=== PATIENT | female | born 1940 | race Caucasian/White ===

== ENCOUNTER → 2018-05-11 10:38 | Outpatient (CLI) | payer MEDICARE, SELFPAY ==
[2018-05-11 11:48] LABS: Add Manual Diff / Slide Review NO; Basophils Percent Auto 0.9 % (0-2); Eosinophils Percent Auto 4.9 % (2-4); Hematocrit 39.6 % (36-46); Hemoglobin 13.6 g/dL (12.0-16.0); Lymphocytes Percent Auto 27.4 % (25-40); Mean Corpuscular HGB Conc 34.3 % (30-36); Mean Corpuscular Hemoglobin 32.5 PG (26-34); Mean Corpuscular Volume 94.6 fL (80-100); Monocytes Percent Auto 8.9 % (3-14); Neutrophils Absolute Auto 2600 /uL (3000-5900); Neutrophils Percent Auto 57.9 % (50-75); Platelet Count 248 X10^3/uL (150-400); Red Blood Cell Count 4.19 X10^6/uL (4.0-5.2); Red Cell Distribution Width 14.1 % (11.6-14.8); White Blood Cell Count 4.5 X10^3/uL (4.5-11.0)
[2018-05-11 12:08] LABS: Erythrocyte Sedimentation Rate 6 MM/HR (0-20)
[2018-05-11 15:10] LABS: Alanine Aminotransferase 22 IU/L (9-52); Albumin 3.9 g/dL (3.5-5.0); Albumin Globulin Ratio 1.3 (1.0-2.8); Alkaline Phosphatase 46 U/L (38-126); Aspartate Aminotransferase 17 IU/L (14-36); BUN Creatinine Ratio 18.8 (6-22); Bilirubin Total 0.6 mg/dL (0.2-1.3); Blood Urea Nitrogen 15 mg/dL (7-17); Calcium 9.3 mg/dL (8.4-10.2); Carbon Dioxide 28 mmol/L (22-32); Chloride 101 mmol/L (98-107); Estimated Glomerular Filt Rate > 60.0 mL/min (>60); Glucose 130 mg/dL (80-110); HEMOLYSIS < 15 (0-50); Potassium 4.1 mmol/L (3.4-5.1); Sodium 137 mmol/L (137-145); Total Protein 6.9 g/dL (6.3-8.2)
[2018-05-11 15:11] LABS: C-Reactive Protein Quant < 0.5 mg/dL (<1.0)
[2018-05-11 15:39] LABS: Thyroid Stimulating Hormone 2.03 uIU/mL (0.47-4.68)
== END ==
PROVIDERS: PCP Nurse Practitioner Family; Visit Provider Nurse Practitioner Family
DX: R10.9 Unspecified abdominal pain (principal); R19.7 Diarrhea, unspecified; K52.832 Lymphocytic colitis
CPT/HCPCS: 36415; 80053; 84443; 85025; 85651; 86140

== ENCOUNTER → 2018-05-13 10:21 | Outpatient (CLI) | payer MEDICARE, SELFPAY ==
[2018-05-17 15:34] LABS: Thyroid Peroxidase Antibodies 85 IU/mL (< 9)
[2018-05-18 10:39] LABS: (tTG) Ab, IgA < 1 U/mL
== END ==
PROVIDERS: PCP Nurse Practitioner Family; Visit Provider Nurse Practitioner Family
DX: R19.7 Diarrhea, unspecified (principal); R10.9 Unspecified abdominal pain; K52.832 Lymphocytic colitis
CPT/HCPCS: 83516; 86255; 86376

== ENCOUNTER → 2018-11-25 10:49 | Outpatient (CLI) | payer MEDICARE, SELFPAY ==
--- NOTE | 2018-11-25 10:51 | DI.RAD.S_ITS ---
PROCEDURE: XR LUMBAR SPINE MIN 4V INDICATIONS: hip pain TECHNIQUE: 5 views of the lumbar spine acquired. COMPARISON: [facility], , L-SPINE 2-3 VIEWS, 02/01/2008, 17:18. FINDINGS: Bones: 5 nonrib-bearing vertebrae are present. Trace multilevel retrolisthesis. Multilevel disc degeneration, moderate at the L3-L4 level. Moderate lower lumbar spine facet joint arthropathy. No pars defects. No vertebral body compression fractures. No suspicious bony lesions. Soft tissues: Overlying bowel gas pattern is normal. No suspicious soft tissue calcifications. Vascular calcifications indicate atherosclerosis. IMPRESSION: Multilevel degenerative change. Dictated by: Hung See [facility] Interpreted: Dean Santos MD on 11/25/2018 at 11:23 Approved by: Dean Santos M.D. on 11/25/2018 at 11:56
--- NOTE | 2018-11-25 10:51 | DI.RAD.S_ITS ---
PROCEDURE: XR HIP W PEL IF DONE RT 2V INDICATIONS: hip pain TECHNIQUE: AP pelvis with lateral view(s) of the right hip(s). COMPARISON: [facility], CR, XR LUMBAR SPINE MIN 4V, 11/25/2018, 10:52. FINDINGS: Bones: No fractures or dislocations. Pelvic ring appears intact. No suspicious bony lesions. Mild joint narrowing with periarticular osteophyte formation of the joints bilaterally. Degenerative disc and facet disease involves the inferior lumbar spine. Soft tissues: The visualized bowel gas pattern is normal. No suspicious soft tissue calcifications. IMPRESSION: Mild symmetric hip joint degeneration. Dictated by: Hung See [facility] Interpreted: Dean Santos MD on 11/25/2018 at 11:25 Approved by: Dean Santos M.D. on 11/25/2018 at 11:56
== END ==
PROVIDERS: PCP Internal Medicine; Visit Provider Physical Medicine & Rehabilitation
DX: M25.551 Pain in right hip (principal); M16.11 Unilateral primary osteoarthritis, right hip; M47.27 Other spondylosis with radiculopathy, lumbosacral region; M47.26 Other spondylosis with radiculopathy, lumbar region
CPT/HCPCS: 72110; 73502; 99214

== ENCOUNTER → 2018-12-06 08:19 | Outpatient (CLI) | payer MEDICARE, SELFPAY ==
--- NOTE | 2018-12-06 08:20 | DI.MRI.S_ITS ---
PROCEDURE: MR LUMBAR SPINE WO CON INDICATIONS: Lumbosacral spondylosis with history of fracture TECHNIQUE: Noncontrast sagittal T1 spin echo and T2 fast echo, sagittal STIR, axial T1 and T2 fast spin echo through the lumbar spine. In cases with scoliosis, additional coronal T2 fast spin echo may be performed. COMPARISON: [facility], CR, L-SPINE 2-3 VIEWS, 02/01/2008, 17:18. [facility], MR, T-SPINE WITHOUT CONTRAST, 09/25/2011, 7:08. [facility], CR, XR LUMBAR SPINE MIN 4V, 11/25/2018, 10:52. FINDINGS: Image quality: Motion artifacts are noted on axial images. Alignment and Curvature: There is grade 1 retrolisthesis is of L3 on L4 and grade 1 anterolisthesis of L4 on L5. Bone Marrow: Marrow is of normal overall signal. Mild chronic vertebral body compression fractures of L3 and L4. Spinal Cord: Conus medullaris terminates at the L1 level. Visualized cord demonstrates normal signal and size. Paraspinous Soft Tissues: No paravertebral masses. L1-L2: Preserved disc height. Mild disc desiccation. There is diffuse disc bulge. The central canal is mildly narrowed. Mild bilateral foraminal stenosis. L2-L3: Mild loss of disc height and disc desiccation. There is diffuse disc bulge. Mild bilateral facet arthropathy. The central canal is mildly narrowed. Mild bilateral foraminal stenosis. L3-L4: Mild loss of disc height and disc desiccation. There is diffuse disc bulge and posterior disc ossified complex. A small posterior central annular fissure is present. Mild bilateral facet arthropathy. The central canal is xvzs-rk-sxhdekxsbo narrowed. Cezopqoa-ns-ayvows bilateral foraminal stenosis. L4-L5: Preserved disc height. Mild disc desiccation. There is diffuse disc bulge and posterior central annular fissure. Mild bilateral facet arthropathy and hypertrophy of ligamentum flavum. The central canal is mildly narrowed. Severe bilateral foraminal stenosis. L5-S1: Preserved disc height. Mild disc desiccation. There is diffuse posterior disc bulge. Mild bilateral facet arthropathy. The central canal is patent. Bzhq-py-hxbcjyiu bilateral foraminal stenosis. IMPRESSION: 1. Multilevel degenerative disc disease and facet arthropathy as described. 2. Udrn-qo-nsstygaj central canal stenosis at L3-L4, and mild central canal stenosis at several other levels. 3. Multilevel foraminal stenosis as described, severe at L4-L5 bilaterally, moderate to severe at L3-L4 bilaterally. 4. Chronic mild compression fractures of L3 and L4. Dictated by: Yo Dumont M.D. on 12/06/2018 at 10:44 Approved by: Yo Dumont M.D. on 12/06/2018 at 10:53
== END ==
PROVIDERS: PCP Internal Medicine; Visit Provider Physical Medicine & Rehabilitation
DX: M47.27 Other spondylosis with radiculopathy, lumbosacral region (principal); M47.26 Other spondylosis with radiculopathy, lumbar region; M51.16 Intervertebral disc disorders with radiculopathy, lumbar region; M51.17 Intervertebral disc disorders with radiculopathy, lumbosacral region; M48.061 Spinal stenosis, lumbar region without neurogenic claudication; M48.07 Spinal stenosis, lumbosacral region; S32.038A Other fracture of third lumbar vertebra, initial encounter for closed fracture; S32.048A Other fracture of fourth lumbar vertebra, initial encounter for closed fracture
CPT/HCPCS: 72148

== ENCOUNTER → 2020-01-11 14:30 | Outpatient (ROUT) | payer MEDICARE, SELFPAY ==
[2020-01-13 13:39] LABS: COVID19 Sendout Not Detected (Not Detected)
== END ==
PROVIDERS: PCP Internal Medicine; Visit Provider Internal Medicine
DX: R05 Cough (principal)
CPT/HCPCS: 87635

== ENCOUNTER 2020-01-13 09:18 | Inpatient (IN) | payer MEDICARE, SELFPAY ==
[2020-01-13] VITALS (14 sets, daily range): BP systolic 119–165; BP diastolic 57–86; PULSE 66–88; RESP 16–20; TEMP 36.7–38.2; O2SAT 95–98; BMI 30.2
--- NOTE | 2020-01-13 09:41 | DI.RAD.S_ITS ---
PROCEDURE: XR CHEST 1V INDICATIONS: suspected sepsis TECHNIQUE: One view of the chest was acquired. COMPARISON: [facility], CT, THORAX WITH CONTRAST, 12/15/2013, 11:55. [facility], , CHEST 2 VIEW, 05/27/2016, 13:37. [facility], CR, CHEST 2 VIEW, 09/24/2011, 11:19. [facility], , CHEST 2 VIEW, 01/16/2011, 15:14. FINDINGS: Surgical changes and devices: None. Lungs and pleura: Lungs are clear. No pleural effusions or pneumothorax. Mediastinum: The cardiac contours are within normal limits. The aorta demonstrates calcification and tortuosity. Bones and chest wall: No suspicious bony lesions. Overlying soft tissues appear unremarkable. IMPRESSION: No focal infiltrates are seen on this portable chest study. Dictated by: Haris Valentin M.D. on 01/13/2020 at 9:35 Approved by: Haris Valentin M.D. on 01/13/2020 at 9:36
[2020-01-13] MEDS: KETOROLAC 60 MG/2 ML VIAL 15 MG IV (09:56)
[2020-01-13] MEDS: ONDANSETRON 4 MG/2 ML INJ IV (09:57)
[2020-01-13] MEDS: SODIUM CHLORIDE 0.9% 1,000 ML 1000 ML IV ×2 (09:57→11:23)
[2020-01-13 10:28] LABS: Add Manual Diff / Slide Review NO; Basophils Absolute Auto 0 /uL (0-100); Eosinophils Absolute Auto 0 /uL (0-450); Eosinophils Percent Auto 0.1 % (2-4); Hematocrit 37.6 % (36-46); Hemoglobin 12.8 g/dL (12.0-16.0); Lymphocytes Absolute Auto 600 /uL (1100-4500); Lymphocytes Percent Auto 3.5 % (25-40); Mean Corpuscular Hemoglobin 32.1 PG (26-34); Mean Corpuscular Volume 94.3 fL (80-100); Monocytes Absolute Auto 1700 /uL (0-900); Monocytes Percent Auto 9.7 % (3-14); Neutrophils Absolute Auto 15100 /uL (1500-7000); Neutrophils Percent Auto 86.7 % (50-75); Platelet Count 177 X10^3/uL (150-400); Red Blood Cell Count 3.98 X10^6/uL (4.0-5.2); Red Cell Distribution Width 13.4 % (11.6-14.8); White Blood Cell Count 17.5 X10^3/uL (4.5-11.0)
[2020-01-13 10:32] LABS: INR 1.3 (0.9-1.3); Prothrombin Time 15.4 SECONDS (10.1-12.7)
[2020-01-13 10:35] LABS: PTT Partial Thromboplastin Tim 28 SECONDS (26.4-36.2)
[2020-01-13 10:38] LABS: Alanine Aminotransferase 24 IU/L (<35); Albumin 3.9 g/dL (3.5-5.0); Albumin Globulin Ratio 1.1 (1.0-2.8); Alkaline Phosphatase 58 U/L (38-126); Aspartate Aminotransferase 26 IU/L (14-36); BUN Creatinine Ratio 14.5 (6-22); Bilirubin Total 0.7 mg/dL (0.2-1.3); Blood Urea Nitrogen 10 mg/dL (7-17); Carbon Dioxide 24 mmol/L (22-32); Chloride 98 mmol/L (98-107); Creatine Kinase 36 U/L (30-135); Estimated Glomerular Filt Rate > 60.0 mL/min (>60); Globulin 3.7 g/dL (1.7-4.1); Glucose 131 mg/dL (80-110); HEMOLYSIS < 15 (0-50); Lipase 23 U/L (23-300); Potassium 3.8 mmol/L (3.4-5.1); Sodium 130 mmol/L (137-145); Total Protein 7.6 g/dL (6.3-8.2)
[2020-01-13 10:47] LABS: Lactate (Lactic Acid) 0.8 mmol/L (0.7-2.1)
[2020-01-13 10:54] LABS: Procalcitonin 0.25 ng/mL (<0.5)
[2020-01-13 11:00] LABS: Influenza A - CEPHEID Flu A NEGATIVE (NEGATIVE); Influenza B - CEPHEID Flu B NEGATIVE (NEGATIVE)
[2020-01-13 11:08] LABS: C-Reactive Protein Quant 22.4 mg/dL (<1.0)
--- NOTE | 2020-01-13 11:10 | DI.CT.S_ITS ---
PROCEDURE: CT CHEST WO CON INDICATIONS: Short of breath, cough, increased wbc count, possible covid TECHNIQUE: Noncontrast 5 mm thick sections acquired from the pulmonary apices to the posterior costophrenic angles. 1 mm lung window, 5 mm thick coronal and sagittal and 7 mm axial MIP reformats were then acquired. For radiation dose reduction, the following was used: automated exposure control, adjustment of mA and/or kV according to patient size. COMPARISON: [facility], CT, THORAX WITH CONTRAST, 12/15/2013, 11:55. [facility], CR, XR CHEST 1V, 01/13/2020, 10:17. FINDINGS: Image quality: Excellent. Lungs and pleura: Mild dependent atelectasis is seen, right worse than left. No focal infiltrates are seen. No pleural effusions or pneumothorax. Central and peripheral airways are patent and normal in caliber. Mediastinum: Heart size is normal. Coronary artery calcifications are seen. No pericardial effusion. No mediastinal adenopathy by size criteria. Thoracic aorta and central pulmonary arteries are normal in size. Esophagus is normal in caliber. There is a moderate hiatal hernia. Bones and chest wall: No suspicious bony lesions. A T7 compression deformity is seen, with 70% loss of height centrally, which is not significantly changed compared to 2013. Age-appropriate bony degenerative changes are seen. No acute vertebral body compression fractures. No axillary or supraclavicular adenopathy by size criteria. Thyroid gland is small in size. Abdomen: Visualized upper abdominal solid organs and bowel loops appear normal in the absence of contrast. IMPRESSION: Clear lungs, without focal infiltrates. No imaging explanation is found for this patient's presenting symptoms. Incidental note is made of: Coronary artery calcification Stable T7 compression deformity Moderate hiatal hernia Dictated by: Haris Valentin M.D. on 01/13/2020 at 11:04 Approved by: Haris Valentin M.D. on 01/13/2020 at 11:07
[2020-01-13 11:12] LABS: Ferritin 264 ng/mL (11-264)
[2020-01-13] MEDS: CEFTRIAXONE 1 GM/50 ML FROZ.PIGGY IV (11:23)
[2020-01-13 11:31] LABS: NT-proBNP (BNP-Adult 18+) 489 pg/mL (<450); Troponin I < 0.012 ng/mL (0.01-0.034)
[2020-01-13] MEDS: SODIUM CHLORIDE 0.9% 1,000 ML 150 ML IV (12:15)
[2020-01-13] MEDS: AZITHROMYCIN 500 MG in DEXTROSE 5% IN WATER 250 ML IV (12:15)
--- NOTE | 2020-01-13 14:00 | ED.FEVER ---
HPI - Fever General Chief Complaint: Fever Stated Complaint: fever, 101.3, covid results not back,chest pain Source: patient Mode of arrival: Ambulatory Limitations: no limitations History of Present Illness HPI Narrative: HPI: Patient is a 79-year-old female who presents to the emergency department with chest pain associated with a fever to 101.3. Patient states that on she developed a dull achy discomfort in her chest and back. This discomfort did not radiate to her neck jaw but did to her right shoulder. There was no arm pain with numbness or tingling. She also developed a very dry cough associated with shortness of breath. She had a argueta virus swab for co visit 19 on . She has had a mild headache. She was primarily complaining of severe body aches and back aches without any ambition or energy. She was extremely exhausted. She felt weak and tired. She stated that her discomfort was 7/10. She denied a history of hepatitis, TB, HIV, known exposure to anybody with cold bit or travel outside the [place]. This year she received her pneumonia vaccine as well as her influenza vaccine. She denied any history of asthma COPD myocardial infarction congestive heart failure hypertension or diabetes mellitus. She states that she has never smoked cigarettes she rarely drinks alcohol and has not used marijuana. She has had a fever since Wednesday associated with chills and sweats especially at night. She has had a mild headache without numbness tingling paresthesias anesthesia is or paresis. She has had some mild sinus congestion with a mild sore throat and minimal nasal drainage. She has had no hemoptysis. Her cough is dry and nonproductive. She has had some intermittent palpitations and dizziness without fainting. She denies any abdominal pain but has had nausea and vomiting without diarrhea. She has felt anorexic and because she has not eaten she has ingested an occasional insure. She denies any urinary symptoms. Related Data Home Medications Medication Instructions Recorded Confirmed levothyroxine [Synthroid] 0.075 mg PO QAM #0 12/01/17 01/13/20 zolpidem 5 mg PO BEDTIME 01/13/20 01/13/20 Allergies Allergy/AdvReac Type Severity Reaction Status Date / Time No Known Drug Allergies Allergy Verified 11/25/18 09:53 Review of Systems Review of Systems Narrative: Review of systems were all negative except for those mentioned in the history of present illness. Patient History Social History household members: spouse and children Smoking Status: Never smoker Smoking Status: Never smoker alcohol intake frequency: 0-2 drinks per day Substance Use Type: does not use Exam Narrative Exam Narrative: PHYSICAL EXAM: CONSTITUTIONAL: Awake, Alert, appears tired exhausted and wasted. She does not appear toxic. HEAD: AT/NC EENT: PERRL, FROM of eyes, no discharge, Tympanic membranes are intact without erythema or dullness or hemotympanum. No epistaxis or nasal drainage Oral mucosa is moist and pink, posterior pharynx is without erythema or exudate. NECK: Supple, no obvious JVD, Trachea is midline without stridor, no palpable LN or masses. SPINE: No gross deformity. The patient's upper thoracic spine between her shoulder blades is diffusely tender without any appreciable deformity. The rest of her is cervical thoracic and lumbar spine are without tenderness. There is no significant 10th ribs who over the sacrum.. No CVA tenderness. THORAX: No deformity, retractions, chest wall tenderness, subcutaneous air or crepitice. LUNGS: The patient is a few crackles in both bases of her lungs. Her heart rate on the monitor was 86 an her oxygen saturation was 90% on room air. HEART: Normal heart tones, regular rhythm and rate without murmur. ABDOMEN: Soft, non-tender, without guarding, rebound, rigidity or palpable mass EXTREMITIES: No edema, cyanosis, deformity or tenderness. SKIN: No rash, bruising, petechiae or purpura. NEURO: Awake, alert, oriented, cranial nerves II-XII are symmetrical. She exhibits generalized fatigue but moves all 4 extremities. Initial Vital Signs Initial Vital Signs: Vital Signs Temperature 98.1 F 01/13/20 09:20 Pulse Rate 84 01/13/20 09:20 Respiratory Rate 20 01/13/20 09:20 Blood Pressure 142/67 H 01/13/20 09:20 Pulse Oximetry 98 01/13/20 09:20 Course Course Course Narrative: 1400 I discussed the patient with the hospitalist Dr. Mccullough who has agreed to admit the patient observation status. The patient's white blood count was 17.5 1000 hemoglobin 12.8 neutrophils 86% lymphocytes 3.5 percents CRP 22.4 BNP 489 procalcitonin 0.25 influenza a and B were negative ferritin 260 for lactate 0.8. Her chest x-ray revealed clear lungs without any evidence of an infiltrate. The patient with the elevated white blood count on admission was thought to be septic with an occult pneumonia waiting for the chest x-ray to be performed. The patient consequently was treated with Rocephin IV and Zithromax. The patient was admitted to the hospital to be evaluated for possible sepsis. She was admitted observation status to Dr. Mccullough. Orders Ordered: ED Orders 01/13/20 10:10 BNP [NT-proBNP (BNP-Adult 18+)] Stat C-Reactive Protein Quant Stat Complete Blood Count AUTO DIFF Stat Comprehensive Metabolic Panel Stat Ferritin Stat Flu test [Influenza A & B (PCR)] Stat Lactate (Lactic Acid) Stat Lipase Stat Partial Thromboplastin Time Stat Procalcitonin Stat Prothrombin Time INR Stat Troponin & CK Cardiac Panel Stat 01/13/20 10:16 Blood Culture Stat 01/13/20 11:10 CT chest wo con Stat 01/13/20 14:00 Urine Culture Stat Urine Microscopic Stat Acetaminophen (Tylenol) 650 mg PO Q6HR PRN PRN Reason: Fever/Mild Pain (1-3) Last Admin: 01/13/20 17:31 Dose: 650 mg Documented by: MILENA Al Hydrox/Mg Hydrox/Simethicone (Maalox Plus) 30 ml PO Q6HR PRN PRN Reason: Dyspepsia Enoxaparin Sodium (Lovenox) 40 mg SUBCUT DAILY [facility] Ceftriaxone Sodium/Dextrose (Rocephin) 1 gm in 50 mls @ 100 mls/hr IV Q24H LUISITO Sodium Chloride (Normal Saline 0.9%) 1,000 mls @ 100 mls/hr IV CONT LUISITO Last Admin: 01/13/20 17:31 Dose: 100 mls/hr Documented by: MILENA Ondansetron HCl (Zofran) 4 mg IV Q8HR PRN PRN Reason: Nausea And Vomiting Discontinued Medications Sodium Chloride (Normal Saline 0.9%) 1,000 mls @ 1,000 mls/hr IV BOLUS ONE Stop: 01/13/20 10:39 Last Infusion: 01/13/20 11:09 Dose: 0 mls/hr Documented by: Admin: 01/13/20 09:57 Dose: 1,000 mls/hr Documented by: DURGA Sodium Chloride (Normal Saline 0.9%) 1,000 mls @ 1,000 mls/hr IV BOLUS ONE Stop: 01/13/20 12:09 Last Infusion: 01/13/20 14:13 Dose: 0 mls/hr Documented by: Admin: 01/13/20 11:23 Dose: 1,000 mls/hr Documented by: DURGA Ceftriaxone Sodium/Dextrose (Rocephin) 1 gm in 50 mls @ 100 mls/hr IV NOW ONE Stop: 01/13/20 11:39 Last Infusion: 01/13/20 12:15 Dose: 0 mls/hr Documented by: Admin: 01/13/20 11:23 Dose: 100 mls/hr Documented by: DURGA Azithromycin 500 mg/ Dextrose 250 mls @ 250 mls/hr IV NOW ONE Stop: 01/13/20 11:11 Last Infusion: 01/13/20 14:12 Dose: 0 mls/hr Documented by: Admin: 01/13/20 12:15 Dose: 250 mls/hr Documented by: DURGA Sodium Chloride (Normal Saline 0.9%) 1,000 mls @ 150 mls/hr IV BOLUS ONE Stop: 01/13/20 17:58 Last Infusion: 01/13/20 14:42 Dose: 0 mls/hr Documented by: Admin: 01/13/20 12:15 Dose: 150 mls/hr Documented by: DURGA Ketorolac Tromethamine (Toradol) 15 mg IV NOW ONE Stop: 01/13/20 09:50 Last Admin: 01/13/20 09:56 Dose: 15 mg Documented by: DURGA Ondansetron HCl (Zofran) 4 mg IV NOW ONE Stop: 01/13/20 09:41 Last Admin: 01/13/20 09:57 Dose: 4 mg Documented by: DURGA Vital Signs Vital signs: Vital Signs - 8 hr 01/13/20 12:00 01/13/20 13:30 01/13/20 14:35 Temperature 98.1 F Pulse Rate 72 75 72 Respiratory Rate 18 Blood Pressure Blood Pressure [Left Arm] 165/67 H 143/69 H 143/69 H Pulse Oximetry 97 98 97 01/13/20 14:50 Temperature 98.5 F Pulse Rate 86 Respiratory Rate 20 Blood Pressure 146/86 H Blood Pressure [Left Arm] Pulse Oximetry 98 MDM - Fever Lab Data Result diagrams: 01/13/20 17:55 01/13/20 10:10 Labs: Lab Results 01/13/20 01/13/20 01/13/20 Range/Units 10:10 10:10 10:10 WBC 17.5 H (4.5-11.0) X10^3/uL RBC 3.98 L (4.0-5.2) X10^6/uL Hgb 12.8 (12.0-16.0) g/dL Hct 37.6 (36-46) % MCV 94.3 (80-100) fL MCH 32.1 (26-34) PG MCHC 34.0 (30-36) % RDW 13.4 (11.6-14.8) % Plt Count 177 (150-400) X10^3/uL Neut % (Auto) 86.7 H (50-75) % Lymph % (Auto) 3.5 L (25-40) % Nuckolls % (Auto) 9.7 (3-14) % Eos % (Auto) 0.1 L (2-4) % Baso % (Auto) 0.0 (0-2) % Neut # (Auto) 10059 H (3867-4801) /uL Lymph # (Auto) 600 L (3403-9121) /uL Nuckolls # (Auto) 1700 H (0-900) /uL Eos # (Auto) 0 (0-450) /uL Baso # (Auto) 0 (0-100) /uL PT 15.4 H (10.1-12.7) SECONDS INR 1.3 (0.9-1.3) APTT 28 (26.4-36.2) SECONDS Sodium 130 L (137-145) mmol/L Potassium 3.8 (3.4-5.1) mmol/L Chloride 98 (98-107) mmol/L Carbon Dioxide 24 (22-32) mmol/L BUN 10 (7-17) mg/dL Creatinine 0.69 (0.52-1.04) mg/dL Estimated GFR > 60.0 (>60) mL/min BUN/Creatinine Ratio 14.5 (6-22) Glucose 131 H (80-110) mg/dL Lactate (0.7-2.1) mmol/L Calcium 9.0 (8.4-10.2) mg/dL Ferritin (11-264) ng/mL Total Bilirubin 0.7 (0.2-1.3) mg/dL AST 26 (14-36) IU/L ALT 24 (<35) IU/L Alkaline Phosphatase 58 (38-126) U/L Total Creatine Kinase 36 (30-135) U/L CK-MB (CK-2) TNP CK-MB (CK-2) Rel Index TNP Troponin I < 0.012 (0.01-0.034) ng/mL C-Reactive Protein 22.4 H (<1.0) mg/dL NT-Pro-B Natriuret Pep 489 H (<450) pg/mL Total Protein 7.6 (6.3-8.2) g/dL Albumin 3.9 (3.5-5.0) g/dL Globulin 3.7 (1.7-4.1) g/dL Albumin/Globulin Ratio 1.1 (1.0-2.8) Lipase 23 (23-300) U/L Procalcitonin (<0.5) ng/mL Urine RBC (0-5/HPF) Urine WBC (0-5/HPF) Urine Bacteria (None) Ur Culture Indicated? Chlamy pneumoniae PCR (Not Detect) Adenovirus (PCR) (Not Detect) B.parapertussis DNA PCR (Not Detect) Coronavirus OC43 (PCR) (Not Detect) Coronavirus HKU1 (PCR) (Not Detect) Coronavirus 229E (PCR) (Not Detect) COVID-19 PCR Coronavirus NL63 (PCR) (Not Detect) Human Metapneumovir PCR (Not Detect) Influenza A (RT-PCR) (NEGATIVE) Influenza Type A (PCR) (Not Detect) Influenza B (RT-PCR) (NEGATIVE) Influenza Type B (PCR) (Not Detect) M. pneumoniae (PCR) (Not Detect) Parainfluenza 1 (PCR) (Not Detect) Parainfluenza 2 (PCR) (Not Detect) Parainfluenza 3 (PCR) (Not Detect) Parainfluenza 4 (PCR) (Not Detect) RSV (PCR) (Not Detect) Entero/Rhino (PCR) (Not Detect) 01/13/20 01/13/20 01/13/20 Range/Units 10:10 10:10 10:10 WBC (4.5-11.0) X10^3/uL RBC (4.0-5.2) X10^6/uL Hgb (12.0-16.0) g/dL Hct (36-46) % MCV (80-100) fL MCH (26-34) PG MCHC (30-36) % RDW (11.6-14.8) % Plt Count (150-400) X10^3/uL Neut % (Auto) (50-75) % Lymph % (Auto) (25-40) % Nuckolls % (Auto) (3-14) % Eos % (Auto) (2-4) % Baso % (Auto) (0-2) % Neut # (Auto) (1257-4724) /uL Lymph # (Auto) (9882-7891) /uL Nuckolls # (Auto) (0-900) /uL Eos # (Auto) (0-450) /uL Baso # (Auto) (0-100) /uL PT (10.1-12.7) SECONDS INR (0.9-1.3) APTT (26.4-36.2) SECONDS Sodium (137-145) mmol/L Potassium (3.4-5.1) mmol/L Chloride (98-107) mmol/L Carbon Dioxide (22-32) mmol/L BUN (7-17) mg/dL Creatinine (0.52-1.04) mg/dL Estimated GFR (>60) mL/min BUN/Creatinine Ratio (6-22) Glucose (80-110) mg/dL Lactate 0.8 (0.7-2.1) mmol/L Calcium (8.4-10.2) mg/dL Ferritin (11-264) ng/mL Total Bilirubin (0.2-1.3) mg/dL AST (14-36) IU/L ALT (<35) IU/L Alkaline Phosphatase (38-126) U/L Total Creatine Kinase (30-135) U/L CK-MB (CK-2) CK-MB (CK-2) Rel Index Troponin I (0.01-0.034) ng/mL C-Reactive Protein (<1.0) mg/dL NT-Pro-B Natriuret Pep (<450) pg/mL Total Protein (6.3-8.2) g/dL Albumin (3.5-5.0) g/dL Globulin (1.7-4.1) g/dL Albumin/Globulin Ratio (1.0-2.8) Lipase (23-300) U/L Procalcitonin 0.25 (<0.5) ng/mL Urine RBC (0-5/HPF) Urine WBC (0-5/HPF) Urine Bacteria (None) Ur Culture Indicated? Chlamy pneumoniae PCR (Not Detect) Adenovirus (PCR) (Not Detect) B.parapertussis DNA PCR (Not Detect) Coronavirus OC43 (PCR) (Not Detect) Coronavirus HKU1 (PCR) (Not Detect) Coronavirus 229E (PCR) (Not Detect) COVID-19 PCR Coronavirus NL63 (PCR) (Not Detect) Human Metapneumovir PCR (Not Detect) Influenza A (RT-PCR) Flu a negative (NEGATIVE) Influenza Type A (PCR) (Not Detect) Influenza B (RT-PCR) Flu b negative (NEGATIVE) Influenza Type B (PCR) (Not Detect) M. pneumoniae (PCR) (Not Detect) Parainfluenza 1 (PCR) (Not Detect) Parainfluenza 2 (PCR) (Not Detect) Parainfluenza 3 (PCR) (Not Detect) Parainfluenza 4 (PCR) (Not Detect) RSV (PCR) (Not Detect) Entero/Rhino (PCR) (Not Detect) 01/13/20 01/13/20 01/13/20 Range/Units 10:10 10:10 10:10 WBC (4.5-11.0) X10^3/uL RBC (4.0-5.2) X10^6/uL Hgb (12.0-16.0) g/dL Hct (36-46) % MCV (80-100) fL MCH (26-34) PG MCHC (30-36) % RDW (11.6-14.8) % Plt Count (150-400) X10^3/uL Neut % (Auto) (50-75) % Lymph % (Auto) (25-40) % Nuckolls % (Auto) (3-14) % Eos % (Auto) (2-4) % Baso % (Auto) (0-2) % Neut # (Auto) (5559-2670) /uL Lymph # (Auto) (0399-7334) /uL Nuckolls # (Auto) (0-900) /uL Eos # (Auto) (0-450) /uL Baso # (Auto) (0-100) /uL PT (10.1-12.7) SECONDS INR (0.9-1.3) APTT (26.4-36.2) SECONDS Sodium (137-145) mmol/L Potassium (3.4-5.1) mmol/L Chloride (98-107) mmol/L Carbon Dioxide (22-32) mmol/L BUN (7-17) mg/dL Creatinine (0.52-1.04) mg/dL Estimated GFR (>60) mL/min BUN/Creatinine Ratio (6-22) Glucose (80-110) mg/dL Lactate (0.7-2.1) mmol/L Calcium (8.4-10.2) mg/dL Ferritin 264 (11-264) ng/mL Total Bilirubin (0.2-1.3) mg/dL AST (14-36) IU/L ALT (<35) IU/L Alkaline Phosphatase (38-126) U/L Total Creatine Kinase (30-135) U/L CK-MB (CK-2) CK-MB (CK-2) Rel Index Troponin I (0.01-0.034) ng/mL C-Reactive Protein (<1.0) mg/dL NT-Pro-B Natriuret Pep (<450) pg/mL Total Protein (6.3-8.2) g/dL Albumin (3.5-5.0) g/dL Globulin (1.7-4.1) g/dL Albumin/Globulin Ratio (1.0-2.8) Lipase (23-300) U/L Procalcitonin (<0.5) ng/mL Urine RBC (0-5/HPF) Urine WBC (0-5/HPF) Urine Bacteria (None) Ur Culture Indicated? Chlamy pneumoniae PCR Not detected (Not Detect) Adenovirus (PCR) Not detected (Not Detect) B.parapertussis DNA PCR Not detected (Not Detect) Coronavirus OC43 (PCR) Not detected (Not Detect) Coronavirus HKU1 (PCR) Not detected (Not Detect) Coronavirus 229E (PCR) Not detected (Not Detect) COVID-19 PCR Cancelled Coronavirus NL63 (PCR) Not detected (Not Detect) Human Metapneumovir PCR Not detected (Not Detect) Influenza A (RT-PCR) (NEGATIVE) Influenza Type A (PCR) Not detected (Not Detect) Influenza B (RT-PCR) (NEGATIVE) Influenza Type B (PCR) Not detected (Not Detect) M. pneumoniae (PCR) Not detected (Not Detect) Parainfluenza 1 (PCR) Not detected (Not Detect) Parainfluenza 2 (PCR) Not detected (Not Detect) Parainfluenza 3 (PCR) Not detected (Not Detect) Parainfluenza 4 (PCR) Not detected (Not Detect) RSV (PCR) Not detected (Not Detect) Entero/Rhino (PCR) Not detected (Not Detect) 01/13/20 Range/Units 14:00 WBC (4.5-11.0) X10^3/uL RBC (4.0-5.2) X10^6/uL Hgb (12.0-16.0) g/dL Hct (36-46) % MCV (80-100) fL MCH (26-34) PG MCHC (30-36) % RDW (11.6-14.8) % Plt Count (150-400) X10^3/uL Neut % (Auto) (50-75) % Lymph % (Auto) (25-40) % Nuckolls % (Auto) (3-14) % Eos % (Auto) (2-4) % Baso % (Auto) (0-2) % Neut # (Auto) (3530-1580) /uL Lymph # (Auto) (6246-3837) /uL Nuckolls # (Auto) (0-900) /uL Eos # (Auto) (0-450) /uL Baso # (Auto) (0-100) /uL PT (10.1-12.7) SECONDS INR (0.9-1.3) APTT (26.4-36.2) SECONDS Sodium (137-145) mmol/L Potassium (3.4-5.1) mmol/L Chloride (98-107) mmol/L Carbon Dioxide (22-32) mmol/L BUN (7-17) mg/dL Creatinine (0.52-1.04) mg/dL Estimated GFR (>60) mL/min BUN/Creatinine Ratio (6-22) Glucose (80-110) mg/dL Lactate (0.7-2.1) mmol/L Calcium (8.4-10.2) mg/dL Ferritin (11-264) ng/mL Total Bilirubin (0.2-1.3) mg/dL AST (14-36) IU/L ALT (<35) IU/L Alkaline Phosphatase (38-126) U/L Total Creatine Kinase (30-135) U/L CK-MB (CK-2) CK-MB (CK-2) Rel Index Troponin I (0.01-0.034) ng/mL C-Reactive Protein (<1.0) mg/dL NT-Pro-B Natriuret Pep (<450) pg/mL Total Protein (6.3-8.2) g/dL Albumin (3.5-5.0) g/dL Globulin (1.7-4.1) g/dL Albumin/Globulin Ratio (1.0-2.8) Lipase (23-300) U/L Procalcitonin (<0.5) ng/mL Urine RBC None seen (0-5/HPF) Urine WBC 5-10/hpf H (0-5/HPF) Urine Bacteria Few (2-10) H (None) Ur Culture Indicated? Specimen cultured Chlamy pneumoniae PCR (Not Detect) Adenovirus (PCR) (Not Detect) B.parapertussis DNA PCR (Not Detect) Coronavirus OC43 (PCR) (Not Detect) Coronavirus HKU1 (PCR) (Not Detect) Coronavirus 229E (PCR) (Not Detect) COVID-19 PCR Coronavirus NL63 (PCR) (Not Detect) Human Metapneumovir PCR (Not Detect) Influenza A (RT-PCR) (NEGATIVE) Influenza Type A (PCR) (Not Detect) Influenza B (RT-PCR) (NEGATIVE) Influenza Type B (PCR) (Not Detect) M. pneumoniae (PCR) (Not Detect) Parainfluenza 1 (PCR) (Not Detect) Parainfluenza 2 (PCR) (Not Detect) Parainfluenza 3 (PCR) (Not Detect) Parainfluenza 4 (PCR) (Not Detect) RSV (PCR) (Not Detect) Entero/Rhino (PCR) (Not Detect) Urine Dip Bedside Urine Glucose Negative Bedside Urine Bilirubin - Negative Bedside Urine Ketone + 15 Urine Specific Boelus 1.010 Bedside Urine Occult Blood + Bedside Urine pH 6.0 Bedside Urine Protein - Negative Bedside Urine Urobilinogen +/- 1mg Bedside Urine Nitrite + Positive Bedside Urine Leukocytes + 70 Esterase Discharge Plan Departure Patient Disposition: Admitted as Observation Clinical Impression: Cough, Generalized body aches, Dehydration Sepsis Qualifiers: Sepsis type: sepsis due to unspecified organism Sepsis acute organ dysfunction status: without acute organ dysfunction Qualified Code(s): A41.9 - Sepsis, unspecified organism Fever Qualifiers: Fever type: unspecified Qualified Code(s): R50.9 - Fever, unspecified Leukocytosis (leucocytosis) Qualifiers: Leukocytosis type: bandemia Qualified Code(s): D72.825 - Bandemia Discharge Date/Time: 01/13/20 14:40 Admit Date/Time: 01/13/20 14:52 Admit Provider: Deny Mccullough
[2020-01-13 14:18] LABS: RBC Urine None Seen (0-5/HPF)
[2020-01-13 14:23] LABS: Bacteria Urine Few (2-10); Culture Indicated Urine Specimen Cultured; WBC Urine 5-10/HPF (0-5/HPF)
--- NOTE | 2020-01-13 15:21 | DI.US.S_ITS ---
PROCEDURE: US ABDOMEN COMPLETE INDICATIONS: POSSIBLE BILIARY/BLADDER PATHOLOGY TECHNIQUE: Real-time scanning was performed of the abdominal and retroperitoneal organs, with image documentation. COMPARISON: [facility], CT, CT CHEST WO [facility], 01/13/2020, 11:29. FINDINGS: Liver: Liver is normal in size and homogeneous in echotexture. Gallbladder: No findings of gallstones or sludge are seen. The gallbladder wall is not thickened, measuring 3 mm or less. No specific pericholecystic fluid is seen. The sonographic Sierra sign is negative. Biliary ducts: Intrahepatic bile ducts are non-dilated. Extrahepatic bile duct caliber measures 4 mm. Normal is 6-7 mm or less in diameter, or 10 mm or less post-cholecystectomy. Pancreas: Visualized portions of the pancreas are sonographically normal. Spleen: Spleen is normal in size and homogeneous in echotexture. Kidneys: Kidneys are normal in size and echotexture. Right kidney measures 10.4 cm long; left kidney measures 11.7 cm long. No hydronephrosis or nephrolithiasis. No solid masses. Aorta: Visualized aorta is normal in caliber at less than 3 cm. Iliacs: Proximal common iliac arteries are normal in caliber at less than 2.5 cm. IVC: Intrahepatic inferior vena cava is patent. Miscellaneous: No free abdominal fluid. The bladder is not well-distended and evaluation of the bladder is limited. However, no bladder abnormality is seen. IMPRESSION: The gallbladder demonstrates a normal sonographic appearance. No biliary dilatation is seen. Limited evaluation of the bladder demonstrates no significant abnormality. Dictated by: Haris Valentin M.D. on 01/13/2020 at 15:43 Approved by: Haris Valentin M.D. on 01/13/2020 at 15:45
--- NOTE | 2020-01-13 15:23 | P.HP_ITS ---
History of Present Illness History of Present Illness Date Patient Seen: 01/13/20 Time Patient Seen: 15:23 Date of Onset of Symptoms: 01/06/20 Chief complaint: fever, 101.3, covid results not back,chest pain Narrative: Celine Arreola is a 79 y/o F with past medical history of hypothyroidism who presented with 1 week of generalized malaise. Patient states that she has been having intermittent subjective fever at home, along with a mild nonproductive cough, and body pains over the past week. She obtained testing for COVID 19 as an outpatient, which returned negative today. Her symptoms changed to nausea and NBNB vomiting starting this morning and this is what brought her to the emergency room. She does state that she feels some min or discomfort over her left chest when she takes a large breath in, however this is mainly posterior and in between her shoulder blades. She denies any further back pain, chest pain, shortness of breath, palpitations. She denies any constipation or diarrhea. She does complain of a mild epigastric pain and mild headache. She has been unable to tolerate much p.o. intake the last couple of days and feels quite weak. She denied any dysuria, but when drinking more fluids did endorse some increased urinary frequency. She denies any recent sick contacts, lives in a home with her son, but assess around the house but is able to perform all of her daily activities by herself without assistance. She has been taking Tylenol at home to help with her symptoms. She does state that she feels better after fluids given in the emergency room. In the ER, patient's vitals were notable for mild hypertension but otherwise unremarkable. She was given a dose of ceftriaxone and azithromycin the emergen cy room as well as fluids. Laboratory evaluation was notable for a WBC of 17.5, with 87% neutrophils, sodium of 130, CRP of 22.4, procalcitonin of 0.25. Troponin was negative, lactate was 0.8, and platelet count was 177. Patient had a chest x-ray which showed no acute process, CT scan of her chest also showed no acute process. Rapid flu testing was negative in the emergency room, COVID 19 performed as an outpatient from 2 days ago was negative, specimen was sent for full viral panel upon my evaluation. I have also ordered her for an abdominal ultrasound given her nonspecific symptoms. Her UA was positive for infection with 5-10 wbc's and bacteria. Patient History Family & Social History Safety & Behavioral: Feels Safe in Current Yes Environment Been Physically Hurt or No Threatened By a Person Tobacco & Substance use: Smoking Status Never smoker alcohol intake frequency 0-2 drinks per day Substance Use Type does not use Meds Home Medications and Allergies Home Medications Medication Instructions Recorded Confirmed Type levothyroxine [Synthroid] 0.075 mg PO QAM #0 12/01/17 01/13/20 History zolpidem 5 mg PO BEDTIME 01/13/20 01/13/20 History Allergies Allergy/AdvReac Type Severity Reaction Status Date / Time No Known Drug Allergies Allergy Verified 11/25/18 09:53 Review of Systems Review of Systems Narrative: All other systems reviewed with the patient and are negative unless otherwise stated. Exam Vital Signs (past 8 hours): - 01/13/20 09:20 01/13/20 10:00 01/13/20 10:30 Temperature 98.1 F Pulse Rate 84 78 71 Respiratory Rate 20 18 Blood Pressure 142/67 H Blood Pressure [Left Arm] 133/63 149/65 H Pulse Oximetry 98 97 95 01/13/20 11:00 01/13/20 12:00 01/13/20 13:30 Temperature Pulse Rate 66 72 75 Respiratory Rate Blood Pressure Blood Pressure [Left Arm] 119/59 L 165/67 H 143/69 H Pulse Oximetry 95 97 98 01/13/20 14:35 01/13/20 14:50 Temperature 98.1 F 98.5 F Pulse Rate 72 86 Respiratory Rate 18 20 Blood Pressure 146/86 H Blood Pressure [Left Arm] 143/69 H Pulse Oximetry 97 98 Oxygen Delivery Method Room Air Oxygen Flow Rate 0 Narrative Exam Narrative: GENERAL APPEARANCE: Well developed, well nourished, in no acute distress. SKIN: Inspection of the skin reveals no rashes, ulcerations or petechiae. HEENT: Normocephalic atraumatic, extraocular muscles are intact, oropharynx is clear and mucous membranes are moist, neck is supple without adenopathy NECK: Supple and symmetric. There was no thyroid enlargement, and no tenderness, or masses were felt. CHEST: Normal AP diameter and normal contour without any kyphoscoliosis. LUNGS: Auscultation of the lungs revealed no wheezes, rhonchi, or rales. CARDIOVASCULAR: There was a regular rate and rhythm without any murmurs, gallops, rubs. Peripheral pulses were 2+ and symmetric. ABDOMEN: Soft and nontender with normal bowel sounds. No ascites was noted. MUSCULOSKELETAL: There was no tenderness or effusions noted. Muscle strength and tone were normal. EXTREMITIES: No cyanosis, clubbing or edema. NEUROLOGIC: Alert and oriented x 3. Normal affect. Gait was normal. Strength is +5/5 in the Upper Extremities and Lower Extremities Bilaterally. Sensation to touch was normal. Objective ECG Impression: Normal sinus rhythm without evidence of active ischemia. Imaging Chest x-ray: My impression: No acute cardiopulmonary processes. Radiologist's impression: Surgical changes and devices: None. Lungs and pleura: Lungs are clear. No pleural effusions or pneumothorax. Mediastinum: The cardiac contours are within normal limits. The aorta demonstrates calcification and tortuosity. Bones and chest wall: No suspicious bony lesions. Overlying soft tissues appear unremarkable. IMPRESSION: No focal infiltrates are seen on this portable chest study. CT scan - chest: Radiologist's impression: Clear lungs, without focal infiltrates. No imaging explanation is found for this patient's presenting symptoms. Incidental note is made of: Coronary artery calcification Stable T7 compression deformity Moderate hiatal hernia Labs Result Diagrams: 01/13/20 10:10 01/13/20 10:10 Labs: Laboratory Results - last 24 hr 01/13/20 01/13/20 01/13/20 10:10 10:10 10:10 WBC 17.5 H RBC 3.98 L Hgb 12.8 Hct 37.6 MCV 94.3 MCH 32.1 MCHC 34.0 RDW 13.4 Plt Count 177 Neut % (Auto) 86.7 H Lymph % (Auto) 3.5 L [place] % (Auto) 9.7 Eos % (Auto) 0.1 L Baso % (Auto) 0.0 Neut # (Auto) 21425 H Lymph # (Auto) 600 L [place] # (Auto) 1700 H Eos # (Auto) 0 Baso # (Auto) 0 PT 15.4 H INR 1.3 APTT 28 Sodium 130 L Potassium 3.8 Chloride 98 Carbon Dioxide 24 BUN 10 Creatinine 0.69 Estimated GFR > 60.0 BUN/Creatinine Ratio 14.5 Glucose 131 H Lactate Calcium 9.0 Ferritin Total Bilirubin 0.7 AST 26 ALT 24 Alkaline Phosphatase 58 Total Creatine Kinase 36 CK-MB (CK-2) TNP CK-MB (CK-2) Rel Index TNP Troponin I < 0.012 C-Reactive Protein 22.4 H NT-Pro-B Natriuret Pep 489 H Total Protein 7.6 Albumin 3.9 Globulin 3.7 Albumin/Globulin Ratio 1.1 Lipase 23 Procalcitonin Urine RBC Urine WBC Urine Bacteria Ur Culture Indicated? Influenza A (RT-PCR) Influenza B (RT-PCR) 01/13/20 01/13/20 01/13/20 10:10 10:10 10:10 WBC RBC Hgb Hct MCV MCH MCHC RDW Plt Count Neut % (Auto) Lymph % (Auto) [place] % (Auto) Eos % (Auto) Baso % (Auto) Neut # (Auto) Lymph # (Auto) [place] # (Auto) Eos # (Auto) Baso # (Auto) PT INR APTT Sodium Potassium Chloride Carbon Dioxide BUN Creatinine Estimated GFR BUN/Creatinine Ratio Glucose Lactate 0.8 Calcium Ferritin Total Bilirubin AST ALT Alkaline Phosphatase Total Creatine Kinase CK-MB (CK-2) CK-MB (CK-2) Rel Index Troponin I C-Reactive Protein NT-Pro-B Natriuret Pep Total Protein Albumin Globulin Albumin/Globulin Ratio Lipase Procalcitonin 0.25 Urine RBC Urine WBC Urine Bacteria Ur Culture Indicated? Influenza A (RT-PCR) Flu a negative Influenza B (RT-PCR) Flu b negative 01/13/20 01/13/20 10:10 14:00 WBC RBC Hgb Hct MCV MCH MCHC RDW Plt Count Neut % (Auto) Lymph % (Auto) [place] % (Auto) Eos % (Auto) Baso % (Auto) Neut # (Auto) Lymph # (Auto) [place] # (Auto) Eos # (Auto) Baso # (Auto) PT INR APTT Sodium Potassium Chloride Carbon Dioxide BUN Creatinine Estimated GFR BUN/Creatinine Ratio Glucose Lactate Calcium Ferritin 264 Total Bilirubin AST ALT Alkaline Phosphatase Total Creatine Kinase CK-MB (CK-2) CK-MB (CK-2) Rel Index Troponin I C-Reactive Protein NT-Pro-B Natriuret Pep Total Protein Albumin Globulin Albumin/Globulin Ratio Lipase Procalcitonin Urine RBC None seen Urine WBC 5-10/hpf H Urine Bacteria Few (2-10) H Ur Culture Indicated? Specimen cultured Influenza A (RT-PCR) Influenza B (RT-PCR) Assessment & Plan Assessment & Plan narrative: Celine Arreola is a 79 y/o F with past medical history of hypothyroidism who presented with 1 week of generalized malaise an nonspecific symptoms. She is admitted under observation status at this time for dehydration and lack of p.o. intake and for further evaluation of leukocytosis. 1. Leukocytosis, acute, present on admission -patient with an elevated WBC of 17.5 on admission with 87% neutrophils. Patient has nonspecific symptoms and a borderline procalcitonin at 0.25. Her urine is positive with 5-10 WBC and bacteria, and she did complain of some recent urinary frequency. Chest x-ray and CT chest were negative for acute processes. -rapid flu negative, covid 19 testing was negative from 2 days ago. Added viral panel today. -will obtain abdominal ultrasound for further assessment of leukocytosis given positive UA, epigastric pain as well. -blood cultures were obtained in the emergency room. -patient does not meet sepsis criteria. -potential etiologies at this time include UTI, viral syndrome, and non infectious causes of leukocytosis including dehydration. -continue ceftriaxone only for acute cystitis given negative CT imaging for pulmonary pathology. -emergency room had ordered repeat COVID 19 testing, however this can be cancelled as patient has not had change in symptoms and testing was negative 2 days ago. -contact isolation can be discontinued, continue droplet until viral respiratory panel has resulted. 2. Dehydration, acute, present on admission -secondary to decreased p.o. intake with nausea and vomiting possibly secondary to acute cystitis or viral syndrome as noted above -patient received 2 L of fluid in the emergency room and will continue on normal saline at 150 cc/hour 3. Hyponatremia, acute, present on admission, mild -patient with admission sodium of 130, likely secondary to hypovolemic etiologies given nausea and vomiting. -repeat chemistries in the morning -fluid hydration as noted above 4. Acute cystitis, present on admission -UA with 5-10 wbc's, urine bacteria. Full urinalysis was not ordered by the emergency room but specimen was cultured. Specimen was taken after antibiotics were given. -obtain full UA with leukocyte esterase. -continue ceftriaxone as noted above. 5. Hypothyroidism, chronic -continue home levothyroxine and repeat TSH given nonspecific symptoms. Code: Full, elects surrogate decision make as her and/or daughter. Has an advanced directive at home. DVT: Lovenox daily Dispo: Admitted under observation status as her stay is not likely to exceed 2 midnights.
[2020-01-13 17:27] LABS: Adenovirus Not Detected (Not Detect); Bordetella pertussis Not Detected (Not Detect); Chlamydophila pneumoniae Not Detected (Not Detect); Coronavirus 229E Not Detected (Not Detect); Coronavirus HKU1 Not Detected (Not Detect); Coronavirus NL 63 Not Detected (Not Detect); Coronavirus OC43 Not Detected (Not Detect); Human Metapneumovirus Not Detected (Not Detect); Human Rhinovirus/Enterovirus Not Detected (Not Detect); Influenza A Not Detected (Not Detect); Influenza B Not Detected (Not Detect); Mycoplasma pneumoniae Not Detected (Not Detect); Parainfluenza Virus 1 Not Detected (Not Detect); Parainfluenza Virus 2 Not Detected (Not Detect); Parainfluenza Virus 3 Not Detected (Not Detect); Parainfluenza Virus 4 Not Detected (Not Detect); Respiratory Syncytial Virus Not Detected (Not Detect)
[2020-01-13] MEDS: ACETAMINOPHEN 325 MG TABLET 650 MG PO (17:31)
[2020-01-13] MEDS: SODIUM CHLORIDE 0.9% 1,000 ML 100 ML IV (17:31)
[2020-01-13 18:02] LABS: Add Manual Diff / Slide Review NO; Basophils Absolute Auto 0 /uL (0-100); Basophils Percent Auto 0.1 % (0-2); Eosinophils Absolute Auto 0 /uL (0-450); Eosinophils Percent Auto 0.2 % (2-4); Hemoglobin 12.6 g/dL (12.0-16.0); Lymphocytes Absolute Auto 600 /uL (1100-4500); Lymphocytes Percent Auto 4.7 % (25-40); Mean Corpuscular Hemoglobin 32.2 PG (26-34); Mean Corpuscular Volume 94.6 fL (80-100); Monocytes Absolute Auto 1400 /uL (0-900); Monocytes Percent Auto 10.2 % (3-14); Neutrophils Absolute Auto 11500 /uL (1500-7000); Neutrophils Percent Auto 84.8 % (50-75); Platelet Count 170 X10^3/uL (150-400); Red Blood Cell Count 3.91 X10^6/uL (4.0-5.2); Red Cell Distribution Width 13.9 % (11.6-14.8); White Blood Cell Count 13.6 X10^3/uL (4.5-11.0)
--- NOTE | 2020-01-13 20:50 | PC.NURSE ---
Pt comfortably sleeping. One episode of vomiting and nausea. Denies pain, just tired and feels sick. Tmax of 100.7. IVF @100cc/hr. UA pending
[2020-01-13 21:10] LABS: Appearance Urine UA CLEAR; Bilirubin Urine UA NEGATIVE (NEGATIVE); Color Urine UA YELLOW; Glucose Urine UA NEGATIVE (Negative); Ketones Urine UA TRACE (NEGATIVE); Leukocyte Esterase Urine UA 1+ (NEGATIVE); Nitrite Urine UA POSITIVE (Negative); Occult Blood Urine UA 1+ (Negative); Protein Urine UA NEGATIVE (Negative); Urobilinogen Urine UA 0.2 E.U./dL (0.2)
[2020-01-13 21:23] LABS: pH Urine UA 6.5 (4.5-8.0)
[2020-01-14] VITALS (9 sets, daily range): BP systolic 122–145; BP diastolic 57–70; PULSE 72–89; RESP 16–24; TEMP 36.7–38.1; O2SAT 95–99
[2020-01-14] MEDS: SODIUM CHLORIDE 0.9% 1,000 ML 100 ML IV ×2 (03:33→16:18)
[2020-01-14 05:15] LABS: Acinetobacter baumannii Not Detected (Not Detect); Enterobacteriaceae species Detected (Not Detect); Enterococcus species Not Detected (Not Detect); KPC (carbapenem-resist gene) Not Detected (Not Detect); Listeria monocytogenes Not Detected (Not Detect); Staphylococcus species Not Detected (Not Detect); Streptococcus agalactiae (Gr B Not Detected (Not Detect); Streptococcus pneumonia Not Detected (Not Detect); Streptococcus pyogenes (Gr A) Not Detected (Not Detect); Streptococcus species Not Detected (Not Detect)
[2020-01-14 05:16] LABS: E. coli Detected (Not Detect)
[2020-01-14 05:17] LABS: Candida albicans Not Detected (Not Detect); Candida glabrata Not Detected (Not Detect); Candida krusei Not Detected (Not Detect); Candida parapsilosis Not Detected (Not Detect); Candida tropicalis Not Detected (Not Detect); Enterobacter cloacae complex Not Detected (Not Detect); Haemophilus influenzae Not Detected (Not Detect); Neisseria meningitidis Not Detected (Not Detect); Proteus species Not Detected (Not Detect); Pseudomonas aeruginosa Not Detected (Not Detect); Serratia marcescens Not Detected (Not Detect)
[2020-01-14 05:35] LABS: Hematocrit 34.7 % (36-46); Hemoglobin 11.7 g/dL (12.0-16.0); Mean Corpuscular HGB Conc 33.8 % (30-36); Mean Corpuscular Volume 94.6 fL (80-100); Platelet Count 169 X10^3/uL (150-400); Red Blood Cell Count 3.67 X10^6/uL (4.0-5.2); Red Cell Distribution Width 13.7 % (11.6-14.8); White Blood Cell Count 13.7 X10^3/uL (4.5-11.0)
[2020-01-14 05:37] LABS: Add Manual Diff / Slide Review YES
[2020-01-14 05:38] LABS: BUN Creatinine Ratio 12.5 (6-22); Blood Urea Nitrogen 9 mg/dL (7-17); Calcium 8.1 mg/dL (8.4-10.2); Carbon Dioxide 24 mmol/L (22-32); Chloride 105 mmol/L (98-107); Estimated Glomerular Filt Rate > 60.0 mL/min (>60); Glucose 86 mg/dL (80-110); HEMOLYSIS < 15 (0-50); Sodium 134 mmol/L (137-145)
[2020-01-14 05:50] LABS: Hemoglobin A1C% w Est Avg Glu 5.3 % (4.0-6.0)
[2020-01-14 06:11] LABS: Neutrophils Absolute Manual 11097 /uL (3000-5900); RBC Morphology Normal Morphology; Total Cells Counted 100
[2020-01-14 06:18] LABS: TSH w/ Reflex to FT4 1.11 uIU/mL (0.47-4.68)
[2020-01-14] MEDS: ENOXAPARIN 40 MG/0.4 ML SYRINGE SUBCUT (07:48)
[2020-01-14] MEDS: ONDANSETRON 4 MG/2 ML INJ IV (07:48)
[2020-01-14 08:10] LABS: Bacteria Urine None Seen; WBC Urine None Seen (0-5/HPF)
[2020-01-14 08:13] LABS: Appearance Urine UA CLEAR; Bilirubin Urine UA NEGATIVE (NEGATIVE); Color Urine UA YELLOW; Glucose Urine UA NEGATIVE (Negative); Ketones Urine UA 2+ (NEGATIVE); Leukocyte Esterase Urine UA TRACE (NEGATIVE); Nitrite Urine UA NEGATIVE (Negative); Occult Blood Urine UA 2+ (Negative); Protein Urine UA 1+ (Negative); Urobilinogen Urine UA 0.2 E.U./dL (0.2)
[2020-01-14 08:23] LABS: Culture Indicated Urine Cult Not Indicated; RBC Urine 5-10/HPF (0-5/HPF); Squamous Epithelial Cell Urine 1-5 /HPF (0-5/HPF)
--- NOTE | 2020-01-14 08:55 | CM.DANOTE ---
DCP: Case received, EMR reviewed. Did not enter patient's room, but was able to review chart in order to complete assessment. DCP assessment completed with information currently available. Patient is a 79 year old female who admitted yesterday afternoon to the care of the hospitalist team. PCP: Dr. Joseph Valenzuela. Payer: confirmed: Medicare/[employer]. Patient came to the hospital via private vehicle secondary to fever, dry cough, as well as malaise. According to notes, patient had been tested for COVID-19, and was negative. Patient continued to have these symptoms, as well as low appetite, and came to the hospital. Patient holds current diagnosis of UTI, as well a dehydration. Did not meet with patient, for she is still on precautions, was able to visualize her sitting up in her chair in her room. Patient resides here in [place] with her spouse, Rosalio. Her primary provider is Dr. Valenzuela. P: DCP to continue to follow and be available for any resources, if needed. She should be able to go home when she is medically stable. Maday Flowers RN/[employer]
--- NOTE | 2020-01-14 10:19 | P.PN_ITS ---
Subjective Subjective Date Patient Seen: 01/14/20 Time Patient Seen: 10:19 Interval history: Celine Arreola is a 79 y/o F with past medical history of hypothyroidism who presented with 1 week of generalized malaise. Overnight there were no acute events except for low-grade fevers, but patient did have some emesis yesterday evening. This is somewhat better today and she was able to eat a small amount of breakfast. Her blood cultures did come back positive for E coli, which is likely from her urine. Her WBC is slightly improved today to 13 from 17 on admission. She denies any fevers or chills overnight, and she denies any chest pain or shortness of breath. She is up and ambulating and was able to shower this morning. Currently we are awaiting sensitivities from her blood cultures, once these result she likely be discharged home if she continues to improve. Today is her second day of IV antibiotics. Exam Vital Signs (past 8 hours): - 01/14/20 03:34 01/14/20 04:00 01/14/20 08:23 Temperature 99.8 F H 98.9 F Pulse Rate 89 81 Respiratory Rate 16 18 Blood Pressure 129/66 135/68 Pulse Oximetry 95 95 96 Oxygen Delivery Method Room Air Oxygen Flow Rate 0 Narrative Exam Narrative: GENERAL APPEARANCE: Well developed, well nourished, in no acute distress. SKIN: Inspection of the skin reveals no rashes, ulcerations or petechiae. HEENT: Normocephalic atraumatic, extraocular muscles are intact, oropharynx is clear and mucous membranes are moist, neck is supple without adenopathy NECK: Supple and symmetric. There was no thyroid enlargement, and no tenderness, or masses were felt. CHEST: Normal AP diameter and normal contour without any kyphoscoliosis. LUNGS: Auscultation of the lungs revealed no wheezes, rhonchi, or rales. CARDIOVASCULAR: There was a regular rate and rhythm without any murmurs, gallops, rubs. Peripheral pulses were 2+ and symmetric. ABDOMEN: Soft and nontender with normal bowel sounds. No ascites was noted. MUSCULOSKELETAL: There was no tenderness or effusions noted. Muscle strength and tone were normal. EXTREMITIES: No cyanosis, clubbing. Mild non-pitting edema to her bilateral ankles. NEUROLOGIC: Alert and oriented x 3. Normal affect. Gait was normal. Strength is +5/5 in the Upper Extremities and Lower Extremities Bilaterally. Sensation to touch was normal. Objective Labs Result Diagrams: 01/14/20 05:15 01/14/20 05:15 Labs: Laboratory Results - last 24 hr 01/13/20 01/13/20 01/13/20 10:10 10:10 10:10 WBC 17.5 H RBC 3.98 L Hgb 12.8 Hct 37.6 MCV 94.3 MCH 32.1 MCHC 34.0 RDW 13.4 Plt Count 177 Neut % (Auto) 86.7 H Lymph % (Auto) 3.5 L [place] % (Auto) 9.7 Eos % (Auto) 0.1 L Baso % (Auto) 0.0 Neut # (Auto) 39218 H Lymph # (Auto) 600 L [place] # (Auto) 1700 H Eos # (Auto) 0 Baso # (Auto) 0 Total Counted Seg Neutrophils % Band Neutrophils % Lymphocytes % (Manual) Monocytes % (Manual) Myelocytes % Neutrophils # (Manual) RBC Morphology PT 15.4 H INR 1.3 APTT 28 Sodium 130 L Potassium 3.8 Chloride 98 Carbon Dioxide 24 BUN 10 Creatinine 0.69 Estimated GFR > 60.0 BUN/Creatinine Ratio 14.5 Glucose 131 H Hemoglobin A1c Lactate Calcium 9.0 Ferritin Total Bilirubin 0.7 AST 26 ALT 24 Alkaline Phosphatase 58 Total Creatine Kinase 36 CK-MB (CK-2) TNP CK-MB (CK-2) Rel Index TNP Troponin I < 0.012 C-Reactive Protein 22.4 H NT-Pro-B Natriuret Pep 489 H Total Protein 7.6 Albumin 3.9 Globulin 3.7 Albumin/Globulin Ratio 1.1 Lipase 23 Procalcitonin TSH Urine Color Urine Appearance Urine pH Ur Specific Strum Urine Protein Urine Glucose (UA) Urine Ketones Urine Occult Blood Urine Nitrate Urine Bilirubin Urine Urobilinogen Ur Leukocyte Esterase Urine RBC Urine WBC Ur Squamous Epith Cells Urine Bacteria Ur Culture Indicated? A. baumannii (PCR) Chlamy pneumoniae PCR Adenovirus (PCR) B.parapertussis DNA PCR Ary albicans (PCR) C. glabrata (PCR) C. krusei (PCR) C. parapsilosis (PCR) C. tropicalis (PCR) Coronavirus OC43 (PCR) Coronavirus HKU1 (PCR) Coronavirus 229E (PCR) COVID-19 PCR Coronavirus NL63 (PCR) Enterobacteriac sp PCR E. cloacae complex PCR Enterococcus sp PCR E. coli (PCR) H. influenzae (PCR) Human Metapneumovir PCR Influenza A (RT-PCR) Influenza Type A (PCR) Influenza B (RT-PCR) Influenza Type B (PCR) Klebsiella oxytoca PCR Klebsiella pneumoniae List. monocytogenes PCR M. pneumoniae (PCR) N. meningitidis (PCR) Parainfluenza 1 (PCR) Parainfluenza 2 (PCR) Parainfluenza 3 (PCR) Parainfluenza 4 (PCR) Proteus species (PCR) RSV (PCR) Entero/Rhino (PCR) Serratia marcescens PCR Staphylococcus sp PCR Staph aureus (PCR) mecA-Methicil Res Gene Streptococcus sp PCR Group A Strep (PCR) Strep agalactiae (PCR) Strep pneumoniae (PCR) P. aeruginosa (PCR) Mary/B-Vanco Res Genes KPC-Carbap Res Gene PCR 01/13/20 01/13/20 01/13/20 10:10 10:10 10:10 WBC RBC Hgb Hct MCV MCH MCHC RDW Plt Count Neut % (Auto) Lymph % (Auto) [place] % (Auto) Eos % (Auto) Baso % (Auto) Neut # (Auto) Lymph # (Auto) [place] # (Auto) Eos # (Auto) Baso # (Auto) Total Counted Seg Neutrophils % Band Neutrophils % Lymphocytes % (Manual) Monocytes % (Manual) Myelocytes % Neutrophils # (Manual) RBC Morphology PT INR APTT Sodium Potassium Chloride Carbon Dioxide BUN Creatinine Estimated GFR BUN/Creatinine Ratio Glucose Hemoglobin A1c Lactate 0.8 Calcium Ferritin Total Bilirubin AST ALT Alkaline Phosphatase Total Creatine Kinase CK-MB (CK-2) CK-MB (CK-2) Rel Index Troponin I C-Reactive Protein NT-Pro-B Natriuret Pep Total Protein Albumin Globulin Albumin/Globulin Ratio Lipase Procalcitonin 0.25 TSH Urine Color Urine Appearance Urine pH Ur Specific Strum Urine Protein Urine Glucose (UA) Urine Ketones Urine Occult Blood Urine Nitrate Urine Bilirubin Urine Urobilinogen Ur Leukocyte Esterase Urine RBC Urine WBC Ur Squamous Epith Cells Urine Bacteria Ur Culture Indicated? A. baumannii (PCR) Not detected Chlamy pneumoniae PCR Adenovirus (PCR) B.parapertussis DNA PCR Ary albicans (PCR) Not detected C. glabrata (PCR) Not detected C. krusei (PCR) Not detected C. parapsilosis (PCR) Not detected C. tropicalis (PCR) Not detected Coronavirus OC43 (PCR) Coronavirus HKU1 (PCR) Coronavirus 229E (PCR) COVID-19 PCR Coronavirus NL63 (PCR) Enterobacteriac sp PCR Detected H E. cloacae complex PCR Not detected Enterococcus sp PCR Not detected E. coli (PCR) Detected H H. influenzae (PCR) Not detected Human Metapneumovir PCR Influenza A (RT-PCR) Flu a negative Influenza Type A (PCR) Influenza B (RT-PCR) Flu b negative Influenza Type B (PCR) Klebsiella oxytoca PCR Not detected Klebsiella pneumoniae Not detected List. monocytogenes PCR Not detected M. pneumoniae (PCR) N. meningitidis (PCR) Not detected Parainfluenza 1 (PCR) Parainfluenza 2 (PCR) Parainfluenza 3 (PCR) Parainfluenza 4 (PCR) Proteus species (PCR) Not detected RSV (PCR) Entero/Rhino (PCR) Serratia marcescens PCR Not detected Staphylococcus sp PCR Not detected Staph aureus (PCR) Not detected mecA-Methicil Res Gene Not Reportable Streptococcus sp PCR Not detected Group A Strep (PCR) Not detected Strep agalactiae (PCR) Not detected Strep pneumoniae (PCR) Not detected P. aeruginosa (PCR) Not detected Mary/B-Vanco Res Genes Not Reportable KPC-Carbap Res Gene PCR Not detected 01/13/20 01/13/20 01/13/20 10:10 10:10 10:10 WBC RBC Hgb Hct MCV MCH MCHC RDW Plt Count Neut % (Auto) Lymph % (Auto) [place] % (Auto) Eos % (Auto) Baso % (Auto) Neut # (Auto) Lymph # (Auto) [place] # (Auto) Eos # (Auto) Baso # (Auto) Total Counted Seg Neutrophils % Band Neutrophils % Lymphocytes % (Manual) Monocytes % (Manual) Myelocytes % Neutrophils # (Manual) RBC Morphology PT INR APTT Sodium Potassium Chloride Carbon Dioxide BUN Creatinine Estimated GFR BUN/Creatinine Ratio Glucose Hemoglobin A1c Lactate Calcium Ferritin 264 Total Bilirubin AST ALT Alkaline Phosphatase Total Creatine Kinase CK-MB (CK-2) CK-MB (CK-2) Rel Index Troponin I C-Reactive Protein NT-Pro-B Natriuret Pep Total Protein Albumin Globulin Albumin/Globulin Ratio Lipase Procalcitonin TSH Urine Color Urine Appearance Urine pH Ur Specific Strum Urine Protein Urine Glucose (UA) Urine Ketones Urine Occult Blood Urine Nitrate Urine Bilirubin Urine Urobilinogen Ur Leukocyte Esterase Urine RBC Urine WBC Ur Squamous Epith Cells Urine Bacteria Ur Culture Indicated? A. baumannii (PCR) Chlamy pneumoniae PCR Not detected Adenovirus (PCR) Not detected B.parapertussis DNA PCR Not detected Ary albicans (PCR) C. glabrata (PCR) C. krusei (PCR) C. parapsilosis (PCR) C. tropicalis (PCR) Coronavirus OC43 (PCR) Not detected Coronavirus HKU1 (PCR) Not detected Coronavirus 229E (PCR) Not detected COVID-19 PCR Cancelled Coronavirus NL63 (PCR) Not detected Enterobacteriac sp PCR E. cloacae complex PCR Enterococcus sp PCR E. coli (PCR) H. influenzae (PCR) Human Metapneumovir PCR Not detected Influenza A (RT-PCR) Influenza Type A (PCR) Not detected Influenza B (RT-PCR) Influenza Type B (PCR) Not detected Klebsiella oxytoca PCR Klebsiella pneumoniae List. monocytogenes PCR M. pneumoniae (PCR) Not detected N. meningitidis (PCR) Parainfluenza 1 (PCR) Not detected Parainfluenza 2 (PCR) Not detected Parainfluenza 3 (PCR) Not detected Parainfluenza 4 (PCR) Not detected Proteus species (PCR) RSV (PCR) Not detected Entero/Rhino (PCR) Not detected Serratia marcescens PCR Staphylococcus sp PCR Staph aureus (PCR) mecA-Methicil Res Gene Streptococcus sp PCR Group A Strep (PCR) Strep agalactiae (PCR) Strep pneumoniae (PCR) P. aeruginosa (PCR) Mary/B-Vanco Res Genes KPC-Carbap Res Gene PCR 01/13/20 01/13/20 01/14/20 14:00 17:55 05:15 WBC 13.6 H 13.7 H RBC 3.91 L 3.67 L Hgb 12.6 11.7 L Hct 37.0 34.7 L MCV 94.6 94.6 MCH 32.2 32.0 MCHC 34.0 33.8 RDW 13.9 13.7 Plt Count 170 169 Neut % (Auto) 84.8 H Not Reportable Lymph % (Auto) 4.7 L Not Reportable [place] % (Auto) 10.2 Not Reportable Eos % (Auto) 0.2 L Not Reportable Baso % (Auto) 0.1 Not Reportable Neut # (Auto) 71153 H Lymph # (Auto) 600 L Not Reportable [place] # (Auto) 1400 H Not Reportable Eos # (Auto) 0 Baso # (Auto) 0 Not Reportable Total Counted 100 Seg Neutrophils % 62.0 Band Neutrophils % 19.0 H Lymphocytes % (Manual) 9.0 L Monocytes % (Manual) 9.0 Myelocytes % 1.0 H Neutrophils # (Manual) 85214 H RBC Morphology Normal morphology PT INR APTT Sodium Potassium Chloride Carbon Dioxide BUN Creatinine Estimated GFR BUN/Creatinine Ratio Glucose Hemoglobin A1c Lactate Calcium Ferritin Total Bilirubin AST ALT Alkaline Phosphatase Total Creatine Kinase CK-MB (CK-2) CK-MB (CK-2) Rel Index Troponin I C-Reactive Protein NT-Pro-B Natriuret Pep Total Protein Albumin Globulin Albumin/Globulin Ratio Lipase Procalcitonin TSH Urine Color Yellow Urine Appearance Clear Urine pH 6.5 Ur Specific Strum 1.010 Urine Protein Negative Urine Glucose (UA) Negative Urine Ketones Trace H Urine Occult Blood 1+ H Urine Nitrate Positive H Urine Bilirubin Negative Urine Urobilinogen 0.2 Ur Leukocyte Esterase 1+ H Urine RBC None seen Urine WBC 5-10/hpf H Ur Squamous Epith Cells Urine Bacteria Few (2-10) H Ur Culture Indicated? Specimen cultured A. baumannii (PCR) Chlamy pneumoniae PCR Adenovirus (PCR) B.parapertussis DNA PCR Ary albicans (PCR) C. glabrata (PCR) C. krusei (PCR) C. parapsilosis (PCR) C. tropicalis (PCR) Coronavirus OC43 (PCR) Coronavirus HKU1 (PCR) Coronavirus 229E (PCR) COVID-19 PCR Coronavirus NL63 (PCR) Enterobacteriac sp PCR E. cloacae complex PCR Enterococcus sp PCR E. coli (PCR) H. influenzae (PCR) Human Metapneumovir PCR Influenza A (RT-PCR) Influenza Type A (PCR) Influenza B (RT-PCR) Influenza Type B (PCR) Klebsiella oxytoca PCR Klebsiella pneumoniae List. monocytogenes PCR M. pneumoniae (PCR) N. meningitidis (PCR) Parainfluenza 1 (PCR) Parainfluenza 2 (PCR) Parainfluenza 3 (PCR) Parainfluenza 4 (PCR) Proteus species (PCR) RSV (PCR) Entero/Rhino (PCR) Serratia marcescens PCR Staphylococcus sp PCR Staph aureus (PCR) mecA-Methicil Res Gene Streptococcus sp PCR Group A Strep (PCR) Strep agalactiae (PCR) Strep pneumoniae (PCR) P. aeruginosa (PCR) Mary/B-Vanco Res Genes KPC-Carbap Res Gene PCR 01/14/20 01/14/20 01/14/20 05:15 05:15 05:15 WBC RBC Hgb Hct MCV MCH MCHC RDW Plt Count Neut % (Auto) Lymph % (Auto) [place] % (Auto) Eos % (Auto) Baso % (Auto) Neut # (Auto) Lymph # (Auto) [place] # (Auto) Eos # (Auto) Baso # (Auto) Total Counted Seg Neutrophils % Band Neutrophils % Lymphocytes % (Manual) Monocytes % (Manual) Myelocytes % Neutrophils # (Manual) RBC Morphology PT INR APTT Sodium 134 L Potassium 4.0 Chloride 105 Carbon Dioxide 24 BUN 9 Creatinine 0.72 Estimated GFR > 60.0 BUN/Creatinine Ratio 12.5 Glucose 86 Hemoglobin A1c 5.3 Lactate Calcium 8.1 L Ferritin Total Bilirubin AST ALT Alkaline Phosphatase Total Creatine Kinase CK-MB (CK-2) CK-MB (CK-2) Rel Index Troponin I C-Reactive Protein NT-Pro-B Natriuret Pep Total Protein Albumin Globulin Albumin/Globulin Ratio Lipase Procalcitonin TSH 1.11 Urine Color Urine Appearance Urine pH Ur Specific Strum Urine Protein Urine Glucose (UA) Urine Ketones Urine Occult Blood Urine Nitrate Urine Bilirubin Urine Urobilinogen Ur Leukocyte Esterase Urine RBC Urine WBC Ur Squamous Epith Cells Urine Bacteria Ur Culture Indicated? A. baumannii (PCR) Chlamy pneumoniae PCR Adenovirus (PCR) B.parapertussis DNA PCR Ary albicans (PCR) C. glabrata (PCR) C. krusei (PCR) C. parapsilosis (PCR) C. tropicalis (PCR) Coronavirus OC43 (PCR) Coronavirus HKU1 (PCR) Coronavirus 229E (PCR) COVID-19 PCR Coronavirus NL63 (PCR) Enterobacteriac sp PCR E. cloacae complex PCR Enterococcus sp PCR E. coli (PCR) H. influenzae (PCR) Human Metapneumovir PCR Influenza A (RT-PCR) Influenza Type A (PCR) Influenza B (RT-PCR) Influenza Type B (PCR) Klebsiella oxytoca PCR Klebsiella pneumoniae List. monocytogenes PCR M. pneumoniae (PCR) N. meningitidis (PCR) Parainfluenza 1 (PCR) Parainfluenza 2 (PCR) Parainfluenza 3 (PCR) Parainfluenza 4 (PCR) Proteus species (PCR) RSV (PCR) Entero/Rhino (PCR) Serratia marcescens PCR Staphylococcus sp PCR Staph aureus (PCR) mecA-Methicil Res Gene Streptococcus sp PCR Group A Strep (PCR) Strep agalactiae (PCR) Strep pneumoniae (PCR) P. aeruginosa (PCR) Mary/B-Vanco Res Genes KPC-Carbap Res Gene PCR 01/14/20 08:00 WBC RBC Hgb Hct MCV MCH MCHC RDW Plt Count Neut % (Auto) Lymph % (Auto) [place] % (Auto) Eos % (Auto) Baso % (Auto) Neut # (Auto) Lymph # (Auto) [place] # (Auto) Eos # (Auto) Baso # (Auto) Total Counted Seg Neutrophils % Band Neutrophils % Lymphocytes % (Manual) Monocytes % (Manual) Myelocytes % Neutrophils # (Manual) RBC Morphology PT INR APTT Sodium Potassium Chloride Carbon Dioxide BUN Creatinine Estimated GFR BUN/Creatinine Ratio Glucose Hemoglobin A1c Lactate Calcium Ferritin Total Bilirubin AST ALT Alkaline Phosphatase Total Creatine Kinase CK-MB (CK-2) CK-MB (CK-2) Rel Index Troponin I C-Reactive Protein NT-Pro-B Natriuret Pep Total Protein Albumin Globulin Albumin/Globulin Ratio Lipase Procalcitonin TSH Urine Color Yellow Urine Appearance Clear Urine pH 6.0 Ur Specific Strum 1.020 Urine Protein 1+ H Urine Glucose (UA) Negative Urine Ketones 2+ H Urine Occult Blood 2+ H Urine Nitrate Negative Urine Bilirubin Negative Urine Urobilinogen 0.2 Ur Leukocyte Esterase Trace H Urine RBC 5-10/hpf H Urine WBC None seen Ur Squamous Epith Cells 1-5 /hpf Urine Bacteria None seen Ur Culture Indicated? Cult not indicated A. baumannii (PCR) Chlamy pneumoniae PCR Adenovirus (PCR) B.parapertussis DNA PCR Ary albicans (PCR) C. glabrata (PCR) C. krusei (PCR) C. parapsilosis (PCR) C. tropicalis (PCR) Coronavirus OC43 (PCR) Coronavirus HKU1 (PCR) Coronavirus 229E (PCR) COVID-19 PCR Coronavirus NL63 (PCR) Enterobacteriac sp PCR E. cloacae complex PCR Enterococcus sp PCR E. coli (PCR) H. influenzae (PCR) Human Metapneumovir PCR Influenza A (RT-PCR) Influenza Type A (PCR) Influenza B (RT-PCR) Influenza Type B (PCR) Klebsiella oxytoca PCR Klebsiella pneumoniae List. monocytogenes PCR M. pneumoniae (PCR) N. meningitidis (PCR) Parainfluenza 1 (PCR) Parainfluenza 2 (PCR) Parainfluenza 3 (PCR) Parainfluenza 4 (PCR) Proteus species (PCR) RSV (PCR) Entero/Rhino (PCR) Serratia marcescens PCR Staphylococcus sp PCR Staph aureus (PCR) mecA-Methicil Res Gene Streptococcus sp PCR Group A Strep (PCR) Strep agalactiae (PCR) Strep pneumoniae (PCR) P. aeruginosa (PCR) Mary/B-Vanco Res Genes KPC-Carbap Res Gene PCR Assessment & Plan Assessment & Plan narrative: Celine Arreola is a 79 y/o F with past medical history of hypothyroidism who presented with 1 week of generalized malaise an nonspecific symptoms. She was found to have E coli bacteremia and is improving slightly today. 1. E. Coli bactermia, acute, present on admission -patient with an elevated WBC of 17.5 on admission with 87% neutrophils. Patient had nonspecific symptoms and a borderline procalcitonin at 0.25. Her urine is positive with 5-10 WBC and bacteria, and she did complain of some recent urinary frequency. Chest x-ray and CT chest were negative for acute processes. -rapid flu negative, covid 19 testing was negative from 2 days ago. Viral panel negative. -Abdominal ultrasound did not show evidence of pyelonephritis or obstruction. -blood cultures were obtained in the emergency room and are positive for E. coli, smear with 4+ GNR. Urine cultures were negative but taken after antibiotics were given. -patient received ceftriaxone and azithromycin in the emergency room for possible pulmonary source, however imaging was negative and she was continued only on ceftriaxone. Today is day 2 of intravenous therapy. Can likely discharge on oral therapy after sensitivities result. -emergency room had ordered repeat COVID 19 testing, however this was cancelled as patient has not had change in symptoms and testing was negative 2 days prior to admission. She also has a confirmed source of her symptoms. -isolation precautions were discontinued. 2. Dehydration, acute, present on admission, active -secondary to decreased p.o. intake with nausea and vomiting likely secondary to E. Coli bacteremia. -patient received 2 L of fluid in the emergency room and will continue on normal saline at 100 cc/hour until adequately rehydrated and tolerates adequate PO intake. 3. Hyponatremia, acute, present on admission, mild -patient with admission sodium of 130, likely secondary to hypovolemic etiologies given nausea and vomiting. Improved slightly today to 134. -repeat chemistries in the morning -fluid hydration as noted above 4. Acute cystitis, present on admission -UA with 5-10 wbc's, positive leuk esterase, urine bacteria. -continue ceftriaxone as noted above. -urine culture currently with no growth, however this was obtained after antibiotics were given. 5. Hypothyroidism, chronic -continue home levothyroxine. Repeat TSH 1.11. Dispo: Anticipate discharge home in the next 1-2 days once sensitivities result and patient's symptoms improved. Today is day 2 of IV antibiotics. Code: Full DVT: Lovenox daily
[2020-01-14 11:07] LABS: Procalcitonin 0.34 ng/mL (<0.5)
[2020-01-14] MEDS: CEFTRIAXONE 1 GM/50 ML FROZ.PIGGY IV (11:10)
--- NOTE | 2020-01-14 13:34 | PC.NURSE ---
SHIFT SUMMARY: PATIENT C/O NAUSEA THIS AM. GIVEN ZOFRAN, TOLERATED A FEW BITES OF BREAKFAST, SET UP ASSIST TO SHOWER. PATIENT STEADY ON FEET. STATES FEELS MUCH BETTER AFTER SHOWER AND ZOFRAN. SAT UP IN RECLINER FOR A COUPLE OF HRS. BACK TO BED AT 1100. ENCOURAGED PO FLUID INTAKE, SMALL FREQ SIPS. TOLERATING WATER. GIVEN OJ AND GINGERALE PER PATIENT REQUEST. PATIENT IS NOW TAKING A NAP. APPEARS COMFORTABLE AT THIS TIME. THIS LENS GENERATOR SPOKE WITH PATIENTS DTR, PER PT PERMISSION AND UPDATED HER POC.
[2020-01-15] VITALS (7 sets, daily range): BP systolic 146–156; BP diastolic 78–94; PULSE 71–83; RESP 16–18; TEMP 36.3–37.1; O2SAT 95–98
[2020-01-15] MEDS: SODIUM CHLORIDE 0.9% 1,000 ML 100 ML IV (02:14)
--- NOTE | 2020-01-15 04:21 | PC.NURSE ---
Pt is doing well. Reports no pain or nausea. NS@100mL/hr Reports she has a cough that is mostly dry and non-productive. States its been okay. She reports having no appetite for past several days. Ind in room of ADLs
[2020-01-15 06:20] LABS: Add Manual Diff / Slide Review NO; Basophils Absolute Auto 0 /uL (0-100); Basophils Percent Auto 0.5 % (0-2); Eosinophils Absolute Auto 100 /uL (0-450); Eosinophils Percent Auto 1.6 % (2-4); Hematocrit 32.2 % (36-46); Lymphocytes Absolute Auto 1200 /uL (1100-4500); Lymphocytes Percent Auto 13.4 % (25-40); Mean Corpuscular HGB Conc 34.2 % (30-36); Mean Corpuscular Hemoglobin 32.2 PG (26-34); Mean Corpuscular Volume 94.2 fL (80-100); Monocytes Absolute Auto 1300 /uL (0-900); Monocytes Percent Auto 14.3 % (3-14); Neutrophils Absolute Auto 6200 /uL (1500-7000); Neutrophils Percent Auto 70.2 % (50-75); Platelet Count 195 X10^3/uL (150-400); Red Blood Cell Count 3.42 X10^6/uL (4.0-5.2); Red Cell Distribution Width 13.4 % (11.6-14.8); White Blood Cell Count 8.8 X10^3/uL (4.5-11.0)
[2020-01-15 06:31] LABS: BUN Creatinine Ratio 11.9 (6-22); Blood Urea Nitrogen 7 mg/dL (7-17); Calcium 8.1 mg/dL (8.4-10.2); Carbon Dioxide 25 mmol/L (22-32); Chloride 107 mmol/L (98-107); Estimated Glomerular Filt Rate > 60.0 mL/min (>60); Glucose 100 mg/dL (80-110); HEMOLYSIS < 15 (0-50); Potassium 3.5 mmol/L (3.4-5.1); Sodium 134 mmol/L (137-145)
[2020-01-15 06:48] LABS: Procalcitonin 0.17 ng/mL (<0.5)
[2020-01-15] MEDS: ENOXAPARIN 40 MG/0.4 ML SYRINGE SUBCUT (08:21)
--- NOTE | 2020-01-15 10:14 | P.DS_ITS ---
History of Present Illness History of Present Illness Date Patient Seen: 01/13/20 Chief complaint: fever, 101.3, covid results not back,chest pain Narrative: Written by Dr. Mccullough: Celine Arreola is a 79 y/o F with past medical history of hypothyroidism who presented with 1 week of generalized malaise. Patient states that she has been having intermittent subjective fever at home, along with a mild nonproductive cough, and body pains over the past week. She obtained testing for COVID 19 as an outpatient, which returned negative today. Her symptoms changed to nausea a nd NBNB vomiting starting this morning and this is what brought her to the emergency room. She does state that she feels some minor discomfort over her left chest when she takes a large breath in, however this is mainly posterior and in between her shoulder blades. She denies any further back pain, chest pain, shortness of breath, palpitations. She denies any constipation or diarrhea. She does complain of a mild epigastric pain and mild headache. She has been unable to tolerate much p.o. intake the last couple of days and feels quite weak. She denied any dysuria, but when drinking more fluids did endorse some increased urinary frequency. She denies any recent sick contacts, lives in a home with her son, but assess around the house but is able to perform all of her daily activities by herself without assistance. She has been taking Tylenol at home to help with her symptoms. She does state that she feels better after fluids given in the emergency room. In the ER, patient's vitals were notable for mild hypertension but otherwise unremarkable. She was given a dose of ceftriaxone and azithromycin the emergency room as well as fluids. Laboratory evaluation was notable for a WBC of 17.5, with 87% neutrophils, sodium of 130, CRP of 22.4, procalcitonin of 0.25. Troponin was negative, lactate was 0.8, and platelet count was 177. Patient had a chest x-ray which showed no acute process, CT scan of her chest also showed no acute process. Rapid flu testing was negative in the emergency room, COVID 19 performed as an outpatient from 2 days ago was negative, specimen was sent for full viral panel upon my evaluation. I have also ordered her for an abdominal ultrasound given her nonspecific symptoms. Her UA was positive for infection with 5-10 wbc's and bacteria. Discharge Providers Provider Date of admission: 01/14/20 10:53 Discharge Date: 01/15/20 Primary care physician: Joseph Valenzuela MD Discharge provider: Maribel Casper DO Summary Hospital Course Discharge Diagnosis: 1. Acute E. Coli bactermia presumed to be secondary to UTI, present on admission. Resolving. 2. Acute hyponatremia, secondary to dehydration, present on admission. Resolving. 3. Hypothyroidism, chronic, present on admission. Stable. Hospital Course: Celine Arreola is a 79-year-old female with a past medical history significant for hypothyroidism who presented to the ED with 1 week of generalized malaise and nausea and vomiting. 1. Acute E. Coli bactermia presumed to be secondary to UTI, present on admissi on. Resolving. -Patient presented with nonspecific symptoms including generalized malaise, nausea and vomiting, decreased appetite, and subjective fever. -Initial WBC 17.5 and borderline elevated procalcitonin at 0.25. Continued to trend WBC and procalcitonin which trended down and normalized. -Urinalysis appeared infected with 5-10 WBC and bacteria with complaint of urinary frequency. Urine culture had no growth likely due to antibiotic initiation prior to collection of urine. -Due to dry nonproductive cough pursued workup of upper respiratory tract infection. Chest x-ray and CT chest were negative for acute processes. Influenza A and B negative. Respiratory PCR negative. COVID 19 negative. -Abdominal ultrasound did not show evidence of cholecystitis, pyelonephritis or obstruction. -Blood culture positive in 1:4 bottles for E coli with sensitivities pending and recommend follow-up cultures by PCP. E. coli is undoubtedly sensitive to 3rd generation cephalosporin as infectious markers have resolved and patient has clinically improved. -Received ceftriaxone and azithromycin in ED for possible pulmonary source, however, imaging and workup was negative therefore azithromycin discontinued. Continued ceftriaxone 2 g IV daily x3 doses. Discharged on cefdinir 300 mg twice daily for 7 additional days to complete a total of 10 days antibiotic course. 2. Acute hyponatremia, secondary to dehydration, present on admission. Resolving. -Secondary to hypovolemia and dehydration due to nausea and vomiting. -Received 2 L of NS in ED. Continued IV fluid hydration until adequately hydrated then discontinued. Encouraged p.o. intake of fluids. -Initial sodium level 130 on admission. Sodium level trended up to 134. -Continued to monitor sodium level daily. 3. Hypothyroidism, chronic, present on admission. Stable. -TSH normal at 1.11. -Continued home levothyroxine 75 mcg daily. Exam Vital Signs (past 8 hours): - 01/15/20 05:00 01/15/20 05:59 01/15/20 08:18 Temperature 98.7 F 97.3 F L Pulse Rate 83 72 Respiratory Rate 18 16 Blood Pressure 146/92 H 147/78 H Pulse Oximetry 98 95 97 01/15/20 09:28 Temperature Pulse Rate Respiratory Rate Blood Pressure Pulse Oximetry 97 Oxygen Delivery Method Room Air Oxygen Flow Rate 0 Narrative Exam Narrative: General: Elderly female sitting in bed and in no acute distress, well- developed, well-nourished, appropriately interactive. HEENT: Normocephalic, atraumatic. External ears without defect. Pupils equal, round, and reactive to light. Anicteric sclerae, moist conjunctivae, and no lid lag. Oropharynx free of erythema and cobble stoning with moist mucosa. Neck: Supple with full range of motion. No jugular venous distension.No lymphadenopathy or thyromegaly. Cardiovascular: Regular rate and rhythm without murmurs, rubs, or gallops appreciated. Pulmonary: Clear to auscultation bilaterally without crackles, wheezes, or rhonchi. Normal respiratory effort with no use of accessory muscles. Abdomen: Soft, bowel sounds present, nontender, nondistended. No CVA, flank or suprapubic tenderness. No hepatosplenomegaly or masses appreciated. Extremities: No clubbing, cyanosis, or edema. Skin: Normal temperature, turgor, and texture; no rash, ulcers, or subcutaneous nodules appreciated. Neurological: Cranial nerves grossly intact. Psychiatric: Normal mood and affect. Alert and oriented to person, place, and time. Objective Labs Result Diagrams: 01/15/20 05:55 01/15/20 05:55 Labs: Laboratory Results - last 24 hr 01/14/20 01/15/20 01/15/20 05:15 05:55 05:55 WBC 8.8 RBC 3.42 L Hgb 11.0 L Hct 32.2 L MCV 94.2 MCH 32.2 MCHC 34.2 RDW 13.4 Plt Count 195 Neut % (Auto) 70.2 Lymph % (Auto) 13.4 L Briscoe % (Auto) 14.3 H Eos % (Auto) 1.6 L Baso % (Auto) 0.5 Neut # (Auto) 6200 Lymph # (Auto) 1200 Briscoe # (Auto) 1300 H Eos # (Auto) 100 Baso # (Auto) 0 Sodium Potassium Chloride Carbon Dioxide BUN Creatinine Estimated GFR BUN/Creatinine Ratio Glucose Calcium Procalcitonin 0.34 0.17 01/15/20 05:55 WBC RBC Hgb Hct MCV MCH MCHC RDW Plt Count Neut % (Auto) Lymph % (Auto) Briscoe % (Auto) Eos % (Auto) Baso % (Auto) Neut # (Auto) Lymph # (Auto) Briscoe # (Auto) Eos # (Auto) Baso # (Auto) Sodium 134 L Potassium 3.5 Chloride 107 Carbon Dioxide 25 BUN 7 Creatinine 0.59 Estimated GFR > 60.0 BUN/Creatinine Ratio 11.9 Glucose 100 Calcium 8.1 L Procalcitonin Discharge Plan Discharge Plan Patient Disposition: Home Discharge comment: You are being discharged home. You had E. coli in your blood stream likely due to a bladder infection. You have been prescribed cefdinir 300 mg twice daily to start tomorrow for 7 days to finish antibiotic treatment for UTI and bloodstream infection. Please follow-up with your primary care physi darwin, Dr. Valenzuela, in 1-2 week regarding your hospitalization. Discharge orders & Medications Prescriptions: New cefdinir 300 mg capsule 300 mg PO BID Qty: 14 RF: 0 Continued levothyroxine [Synthroid] 75 MCG tablet 0.075 mg PO QAM Qty: 0 RF: 0 zolpidem 5 mg tablet 5 mg PO BEDTIME RF: 0 Follow up/Referrals: Joseph Valenzuela MD [Primary Care Provider] - 01/22/20 2:30 pm (appt:01/21 @ 2:30 sj from that clinic will contact you if appointment is changed from clinic per telamed communication) Diet/Activity/Treatments Diet: Diet as Tolerated Activity: Activity as tolerated Visit Report/Discharge Packet Instructions: DI for Urinary Tract Infection (UTI), DI for Bacteremia--Child Discharge Data Primary Care Provider: Joseph Valenzuela
[2020-01-15] MEDS: CEFTRIAXONE 1 GM/50 ML FROZ.PIGGY IV (11:59)
== END 2020-01-15 14:00 | disposition home or self-care (01) | DRG 690 ==
LOC: ED 14:01 → AC 14:52
PROVIDERS: Admitting Provider Internal Medicine; Emergency Provider Emergency Medicine; PCP Internal Medicine; Visit Provider Internal Medicine
DX: N39.0 Urinary tract infection, site not specified (principal); E87.1 Hypo-osmolality and hyponatremia; R78.81 Bacteremia; E86.0 Dehydration; B96.20 Unspecified Escherichia coli [E. coli] as the cause of diseases classified elsewhere; E03.9 Hypothyroidism, unspecified; R05 Cough
CPT/HCPCS: 36415; 71045; 71250; 76700; 80048; 80053; 81001; 81003; 81015; 82550; 82728; 83036; 83605; 83690; 83880; 84145; 84443; 84484; 85025; 85610; 85730; 86140; 87040; 87086; 87150; 87186; 87205; 87502; 87633; 87635; 93005; 96361; 96365; 96366; 96367; 96375; 99285; G0378; J1650; J1885; J2405

== ENCOUNTER → 2020-03-26 11:19 | Outpatient (CLI) | payer MEDICARE, SELFPAY ==
[2020-01-13 17:39] VITALS: BMI 30.2
[2020-03-26 12:46] LABS: Alanine Aminotransferase 15 IU/L (<35); Albumin 3.8 g/dL (3.5-5.0); Albumin Globulin Ratio 1.2 (1.0-2.8); Alkaline Phosphatase 40 U/L (38-126); Aspartate Aminotransferase 24 IU/L (14-36); BUN Creatinine Ratio 22.4 (6-22); Bilirubin Total 0.5 mg/dL (0.2-1.3); Blood Urea Nitrogen 17 mg/dL (7-17); Calcium 9.4 mg/dL (8.4-10.2); Carbon Dioxide 23 mmol/L (22-32); Chloride 103 mmol/L (98-107); Cholesterol 173 mg/dL (140-199); Estimated Glomerular Filt Rate > 60.0 mL/min (>60); Globulin 3.1 g/dL (1.7-4.1); Glucose 79 mg/dL (80-110); HDL Cholesterol 66 mg/dL (40-60); HEMOLYSIS < 15 (0-50); LDL Cholesterol Calculated 98 mg/dL (<100); Potassium 4.5 mmol/L (3.4-5.1); Sodium 133 mmol/L (137-145); Total Protein 6.9 g/dL (6.3-8.2); Triglycerides 46 mg/dL (35-150)
[2020-03-26 12:58] LABS: Free T4, Direct Thyroxine 1.62 ng/dL (0.78-2.19)
[2020-03-26 13:12] LABS: Thyroid Stimulating Hormone 1.05 uIU/mL (0.47-4.68)
[2020-03-27 06:36] LABS: Triiodothyronine T3 Total 90 ng/dL (71-180)
== END ==
PROVIDERS: PCP Internal Medicine; Referring Provider Internal Medicine; Visit Provider Internal Medicine
DX: E78.5 Hyperlipidemia, unspecified (principal); E03.9 Hypothyroidism, unspecified; M80.88XD Other osteoporosis with current pathological fracture, vertebra(e), subsequent encounter for fracture with routine healing
CPT/HCPCS: 36415; 80053; 80061; 84439; 84443; 84480

== ENCOUNTER → 2020-04-01 13:12 | Outpatient (CLI) | payer MEDICARE, SELFPAY ==
[2020-01-13 17:39] VITALS: BMI 30.2
== END ==
PROVIDERS: PCP Internal Medicine; Referring Provider Internal Medicine; Visit Provider Internal Medicine
DX: M81.0 Age-related osteoporosis without current pathological fracture (principal); Z78.0 Asymptomatic menopausal state; E07.9 Disorder of thyroid, unspecified; Z82.62 Family history of osteoporosis
CPT/HCPCS: 77080

== ENCOUNTER → 2020-07-23 18:54 | Outpatient (CLI) | payer MEDICARE, SELFPAY ==
[2020-01-13 17:39] VITALS: BMI 30.2
--- NOTE | 2020-07-23 | DI.MRI.S_ITS ---
PROCEDURE: MR LUMBAR SPINE WO CON INDICATIONS: WEDGE COMPRESSION FX TECHNIQUE: Noncontrast sagittal T1 spin echo and T2 fast echo, sagittal STIR, axial T1 and T2 fast spin echo through the lumbar spine. In cases with scoliosis, additional coronal T2 fast spin echo may be performed. COMPARISON: [facility], CT, CT LUMBAR SPINE WITHOUT CONTRAST, 07/17/2020, 9:50. [facility], MR, MR LUMBAR SPINE WO CON, 12/06/2018, 8:33. FINDINGS: Image quality: Excellent. Alignment and Curvature: There is normal bony alignment. Bone Marrow: Marrow is of normal overall signal. 40% compression deformity at L2 with increased STIR signal. Chronic superior endplate deformites are present at L3, L4. Spinal Cord: Conus medullaris terminates at the L1 level. Visualized cord demonstrates normal signal and size. Paraspinous Soft Tissues: No paravertebral masses. Discs: Moderate disc dessication is present throughout the lumbar spine. T11-12: Minimal disc protrusion without spinal stenosis or foraminal narrowing. L1-L2: Mild disc bulge without spinal stenosis. Mild bilateral foraminal narrowing with facet hypertrophy. L2-L3: Mild disc bulge with mid spinal stenosis. Mild biateral foraminal stenosis. L3-L4: Mild disc bulge, including left foraminal component. There is moderate spinal stenosis. Moderate to severe biateral foraminal stenosis. L4-L5: Mild disc bulge with moderate spinal stenosis. Severe right and moderate to severe left foraminal stenosis. Facet hypertrophy is present. L5-S1: Mild disc without spinal stenosis. Moderate left and mild to moderate right foraminal narrowing, with slight interval progression. IMPRESSION: 1. Subacute comression deformity at L2. 2. Multilevel degenerative changes, with minimal progression, as above. Dictated by: Nunu Jansen M.D. on 07/24/2020 at 10:32 Approved by: Nunu Jansen M.D. on 07/24/2020 at 13:21
== END ==
PROVIDERS: PCP Internal Medicine; Referring Provider Physician Assistant Medical; Visit Provider Physician Assistant Medical
DX: S32.020A Wedge compression fracture of second lumbar vertebra, initial encounter for closed fracture (principal); M47.816 Spondylosis without myelopathy or radiculopathy, lumbar region
CPT/HCPCS: 72148

== ENCOUNTER → 2020-08-02 11:15 | Outpatient (CLI) | payer MEDICARE, SELFPAY ==
[2020-01-13 17:39] VITALS: BMI 30.2
[2020-08-02 12:12] LABS: Add Manual Diff / Slide Review NO; Basophils Absolute Auto 0 /uL (0-100); Basophils Percent Auto 0.5 % (0-2); Eosinophils Absolute Auto 200 /uL (0-450); Eosinophils Percent Auto 4.3 % (2-4); Hematocrit 39.5 % (36-46); Hemoglobin 13.3 g/dL (12.0-16.0); Lymphocytes Absolute Auto 1300 /uL (1100-4500); Lymphocytes Percent Auto 25.6 % (25-40); Mean Corpuscular HGB Conc 33.6 % (30-36); Mean Corpuscular Hemoglobin 31.5 PG (26-34); Monocytes Absolute Auto 600 /uL (0-900); Neutrophils Absolute Auto 3000 /uL (1500-7000); Neutrophils Percent Auto 58.6 % (50-75); Platelet Count 274 X10^3/uL (150-400); Red Blood Cell Count 4.21 X10^6/uL (4.0-5.2); Red Cell Distribution Width 14.3 % (11.6-14.8); White Blood Cell Count 5.2 X10^3/uL (4.5-11.0)
== END ==
PROVIDERS: PCP Internal Medicine; Referring Provider Orthopaedic Surgery; Visit Provider Orthopaedic Surgery
DX: Z01.818 Encounter for other preprocedural examination (principal); Z01.812 Encounter for preprocedural laboratory examination
CPT/HCPCS: 36415; 85025; 93005

== ENCOUNTER → 2020-08-05 14:35 | Outpatient (CLI) | payer MEDICARE, SELFPAY ==
[2020-01-13 17:39] VITALS: BMI 30.2
[2020-08-06 06:46] LABS: COVID19 Sendout Not Detected (Not Detect)
== END ==
PROVIDERS: PCP Internal Medicine; Visit Provider Physician Assistant
DX: Z11.59 Encounter for screening for other viral diseases (principal)
CPT/HCPCS: 87635

== ENCOUNTER → 2020-08-21 08:27 | Outpatient (CLI) | payer MEDICARE, SELFPAY ==
[2020-01-13 17:39] VITALS: BMI 30.2
--- NOTE | 2020-08-21 08:29 | DI.RAD.S_ITS ---
PROCEDURE: XR HIP W PEL IF DONE LT MIN 4V INDICATIONS: BILATERAL HIP PAIN TECHNIQUE: AP pelvis with lateral view(s) of the bilateral hip(s). COMPARISON: [facility], CLAUDIA, XR HIP W PEL IF DONE RT 2V, 11/25/2018, 10:52. FINDINGS: Bones: No fractures or dislocations. Pelvic ring appears intact. No suspicious bony lesions. Mild symmetric hip joint osteoarthritis present without appreciable change from 11/25/18 Soft tissues: The visualized bowel gas pattern is normal. No suspicious soft tissue calcifications. IMPRESSION: Stable bilateral hip joint mild osteoarthritis. Dictated by: Dean Santos M.D. on 08/21/2020 at 8:58 Approved by: Dean Santos M.D. on 08/21/2020 at 8:59
--- NOTE | 2020-08-21 08:29 | DI.RAD.S_ITS ---
PROCEDURE: XR LUMBAR SPINE MIN 4V INDICATIONS: L2 fRACTURE TECHNIQUE: 5 views of the lumbar spine were acquired. COMPARISON: [facility], MR, MR LUMBAR SPINE WO CON, 12/06/2018, 8:33. [facility], CT, CT LUMBAR SPINE WITHOUT CONTRAST, 07/17/2020, 9:50. [facility], MR, MR LUMBAR SPINE WO CON, 07/23/2020, 19:04. [facility], CR, XR LUMBAR SPINE 2 OR 3 VIEWS, 08/01/2020, 9:08. [facility], CR, XR LUMBAR SPINE MIN 4V, 11/25/2018, 10:52. [facility], CR, L-SPINE 2-3 VIEWS, 02/01/2008, 17:18. FINDINGS: Bones: 5 nonrib-bearing vertebrae are present. There is normal bony alignment. No new vertebral body compression fractures are identified. Previous L3 and L4 superior endplate impaction fractures have been documented by MR scanning 12/06/18, chronic at that time. L2 at that time appeared free of acute injury. Subsequently, a superior endplate additional compression fracture developed at L2 and has remained stable over the most recent prior plain film imaging. Marrow edema in L2 was present 07/23/20 by MR scanning.. No suspicious bony lesions. Moderate degenerative disc disease is seen from L3 inferiorly. Progressively greater facet osteoarthritis is seen from L3 inferiorly also. [id number] foraminal stenosis likely is present at these 3 levels, symmetrically, based on the oblique imaging. Soft tissues: Overlying bowel gas pattern is normal. No suspicious soft tissue calcifications. Oblique images: No pars defects. IMPRESSION: Recent L2 moderate superior endplate compression fracture, stable [id number] degenerative disc disease and facet osteoarthritis as discussed above most prominent from L3 inferiorly. No retropulsion of bone fragments into the spinal canal is seen. Dictated by: Dean Santos M.D. on 08/21/2020 at 9:00 Approved by: Dean Santos M.D. on 08/21/2020 at 9:37
== END ==
PROVIDERS: PCP Internal Medicine; Referring Provider Physical Medicine & Rehabilitation; Visit Provider Physical Medicine & Rehabilitation
DX: S32.029A Unspecified fracture of second lumbar vertebra, initial encounter for closed fracture (principal); S32.030A Wedge compression fracture of third lumbar vertebra, initial encounter for closed fracture; S32.040A Wedge compression fracture of fourth lumbar vertebra, initial encounter for closed fracture; M16.0 Bilateral primary osteoarthritis of hip; M70.61 Trochanteric bursitis, right hip; M51.36 Other intervertebral disc degeneration, lumbar region; M47.816 Spondylosis without myelopathy or radiculopathy, lumbar region
CPT/HCPCS: 20611; 72110; 73522; 99214; J0702

== ENCOUNTER → 2020-10-16 10:25 | Outpatient (CLI) | payer MEDICARE, SELFPAY ==
[2020-10-03 13:05] VITALS: BMI 30.2
--- NOTE | 2020-10-16 10:27 | DI.RAD.S_ITS ---
PROCEDURE: XR LUMBAR SPINE MIN 4V INDICATIONS: Follow-up lumbar fractures TECHNIQUE: 5 views of the lumbar spine were acquired. COMPARISON: [facility], CR, XR LUMBAR SPINE MIN 4V, 08/21/2020, 8:37. FINDINGS: Bones: Unchanged appearance of L2 compression fracture with moderate height loss. Grade 1 retrolisthesis of L2 on L3 and L3 on L4. Multilevel degenerative endplate sclerosis and spurring. Diffuse facet arthropathy. Moderate narrowing of the L3-L4 and L1-L2 disc spaces. Mild narrowing of the remaining lumbar disc spaces. Bilateral hip joint degeneration. Soft tissues: Overlying bowel gas pattern is normal. No suspicious soft tissue calcifications. Scattered vascular calcifications seen in the aorta. Oblique images: No pars defects. IMPRESSION: Unchanged L2 compression fracture. Diffuse lumbar spondylosis and facet arthropathy, grossly unchanged Multilevel spondylolisthesis as above. Dictated by: Wilton Sharpe M.D. on 10/16/2020 at 13:05 Approved by: Wilton Sharpe M.D. on 10/16/2020 at 13:07
== END ==
PROVIDERS: Referring Provider Physical Medicine & Rehabilitation; Visit Provider Physical Medicine & Rehabilitation
DX: S32.020G Wedge compression fracture of second lumbar vertebra, subsequent encounter for fracture with delayed healing (principal); M80.00XD Age-related osteoporosis with current pathological fracture, unspecified site, subsequent encounter for fracture with routine healing; S32.040S Wedge compression fracture of fourth lumbar vertebra, sequela; M16.11 Unilateral primary osteoarthritis, right hip; E86.0 Dehydration
CPT/HCPCS: 72110; 99213

== ENCOUNTER → 2020-11-15 08:46 | Outpatient (CLI) | payer MEDICARE, SELFPAY ==
[2020-10-03 13:05] VITALS: BMI 30.2
[2020-11-15] MEDS: COVID-19 VACC #1, MRNA(MOD) 100 MCG/0.5 ML VIAL IM (08:54)
== END ==
PROVIDERS: Visit Provider Internal Medicine
DX: Z23 Encounter for immunization (principal)
CPT/HCPCS: 0011A; 91301

== ENCOUNTER → 2020-11-25 12:26 | Outpatient (CLI) | payer MEDICARE, SELFPAY ==
[2020-10-03 13:05] VITALS: BMI 30.2
--- NOTE | 2020-11-25 12:28 | DI.RAD.S_ITS ---
PROCEDURE: XR LUMBAR SPINE MIN 4V INDICATIONS: L2 fx f/u TECHNIQUE: 5 views of the lumbar spine were acquired, including bilateral oblique views. COMPARISON: [facility], CR, XR LUMBAR SPINE 2 OR 3 VIEWS, 08/01/2020, 9:08. [facility], CR, XR LUMBAR SPINE MIN 4V, 10/16/2020, 10:30. FINDINGS: Bones: 5 nonrib-bearing vertebrae are present. There is mild L2-L3 and L3-L4 retrolisthesis. L2 compression fracture is stable compared to prior exams. No acute vertebral body compression fractures. No suspicious bony lesions. Moderate L1-L2 and L3-L4 degenerative disc disease. Mild L2-L3, L4-L5 and L5-S1 degenerative disc disease. Moderate L4-L5 and L5-S1 facet arthropathy. Soft tissues: Overlying bowel gas pattern is normal. No suspicious soft tissue calcifications. Oblique images: No pars defects. IMPRESSION: 1. Stable examination compared to October 16, 2020. 2. Stable L2 compression fracture. 3. Multilevel degenerative disc disease. 4. Multilevel facet arthropathy. 5. No acute fracture. No acute osseous lesion. If symptoms and/or clinical suspicion for pathology persists, evaluation with MRI should be considered for further assessment. Dictated by: Desiree Ibrahim MD, PhD on 11/25/2020 at 13:07 Approved by: Desiree Ibrahim MD, PhD on 11/25/2020 at 13:10
== END ==
PROVIDERS: Referring Provider Physical Medicine & Rehabilitation; Visit Provider Physical Medicine & Rehabilitation
DX: S32.020G Wedge compression fracture of second lumbar vertebra, subsequent encounter for fracture with delayed healing (principal); M80.00XD Age-related osteoporosis with current pathological fracture, unspecified site, subsequent encounter for fracture with routine healing; S32.030S Wedge compression fracture of third lumbar vertebra, sequela; S32.040S Wedge compression fracture of fourth lumbar vertebra, sequela; M47.816 Spondylosis without myelopathy or radiculopathy, lumbar region; M47.817 Spondylosis without myelopathy or radiculopathy, lumbosacral region; M51.36 Other intervertebral disc degeneration, lumbar region; M51.37 Other intervertebral disc degeneration, lumbosacral region
CPT/HCPCS: 72110; 99214

== ENCOUNTER → 2020-12-13 10:28 | Outpatient (CLI) | payer MEDICARE, SELFPAY ==
[2020-10-03 13:05] VITALS: BMI 30.2
[2020-12-13] MEDS: COVID-19 VACC #2, MRNA(MOD) 100 MCG/0.5 ML VIAL IM (10:32)
== END ==
PROVIDERS: Visit Provider Internal Medicine
DX: Z23 Encounter for immunization (principal)
CPT/HCPCS: 0012A; 91301

== ENCOUNTER → 2021-01-29 11:17 | Outpatient (CLI) | payer MEDICARE, SELFPAY ==
[2020-10-03 13:05] VITALS: BMI 30.2
[2021-01-29 13:31] LABS: COVID19 -Nasal RAPID Negative (Negative)
== END ==
PROVIDERS: PCP Physician Assistant; Visit Provider Student in an Organized Health Care Education/Training Program
DX: Z20.822 Contact with and (suspected) exposure to COVID-19 (principal)
CPT/HCPCS: 87635; C9803

== ENCOUNTER → 2021-01-30 10:55 | Outpatient (CLI) | payer MEDICARE, SELFPAY ==
[2020-10-03 13:05] VITALS: BMI 30.2
--- NOTE | 2021-01-30 10:57 | DI.NM.S_ITS ---
PROCEDURE: NM MARY ALICE PERF SPECT REST & STR Rest and exercise myocardial perfusion SPECT with gated imaging and ejection fraction RADIOPHARMACEUTICAL: 26.8 mCi Tc-99m sestamibi IV at rest and 26.7 mCi Tc-99m sestamibi IV at peak exercise. A two day-protocol was performed. INDICATIONS: Chest pain, unspecified TECHNIQUE: Radiopharmaceutical was injected at peak stress test, and also at rest. SPECT images were obtained. SPECT myocardial perfusion images were displayed in short axis, horizontal long axis, and vertical long axis views. Gated images were reviewed using Tumri software. COMPARISON: None. CARDIAC STRESS: A standard Alexis treadmill exercise tolerance test was performed by the patient under the supervision of an attending staff. The patient exercised for 5 minutes and 30 seconds; functional aerobic impairment (CAMI) is -42%. Hemodynamic data: There is normal blood pressure and heart rate response to exercise stress. Patient achieved 93% of maximum predicted heart rate at peak exercise. Symptoms: Patient denied chest pain during exercise. EKG: No diagnostic EKG changes of ischemia; rare PVCs present. FINDINGS: Raw data: There is good myocardial labeling by radiotracer. No significant motion artifacts. Left ventricle function: Gated images demonstrate normal left ventricle wall thickening. No segmental wall motion abnormality. No transient ischemic dilation; TID is 1.04 (normal less than 1.3). The left ventricle resting end-diastolic volume is 59 mL. Left ventricle stress ejection fraction is 97%; normal values are above 45%. Myocardial perfusion: There is normal distribution of activity in the left and right ventricular myocardium. No fixed or reversible perfusion defects. IMPRESSION: Low risk, normal treadmill nuclear stress test 1) No perfusion evidence of ischemia or infarction. 2) Normal left ventricular size, wall motion, and systolic function (EF over calculated post stress at 97%). 3) No ECG evidence of ischemia. 4) No angina during the study. 5) Very good exercise tolerance (7.0 METs, CAMI -42%). Target heart rate achieved. Appropraite BP response to exercise. 6) Compared to the nuclear stress test done 05/11/2013, no significant change. Dictated by: Brennan Davison MD on 01/31/2021 at 15:36 Approved by: Brennan Davison MD on 01/31/2021 at 15:39
--- NOTE | 2021-01-30 11:51 | PM.TREADMILL ---
Cardiac Stress Test Report Referral & Results Date Patient Seen: 01/30/21 Time Patient Seen: 11:51 Requesting provider: Paulina Posada Indication: chest pain Rest ECG: sinus rhythm Procedure Note: Standard Alexis protocol, 5:30, 5.6 METS Very good exercise capacity, CAMI -42% Normal hemodynamic response to exercise No chest pain or anginal symptoms No significant ST changes at peak exercise Rare PVC Impression: Normal exercise stress test Please note: Actual ECG tracings can be found in the PACS system.
== END ==
PROVIDERS: PCP Physician Assistant; Referring Provider Physician Assistant; Visit Provider Physician Assistant
DX: R07.9 Chest pain, unspecified (principal)
CPT/HCPCS: 78452; 93017; A9502

== ENCOUNTER → 2021-06-20 12:01 | Outpatient (CLI) | payer MEDICARE, SELFPAY ==
[2020-10-03 13:05] VITALS: BMI 30.2
[2021-06-20 13:20] LABS: Alanine Aminotransferase 15 IU/L (<35); Albumin 4.2 g/dL (3.5-5.0); Albumin Globulin Ratio 1.4 (1.0-2.8); Alkaline Phosphatase 48 U/L (38-126); Aspartate Aminotransferase 23 IU/L (14-36); BUN Creatinine Ratio 17.7 (6-22); Bilirubin Total 0.6 mg/dL (0.2-1.3); Blood Urea Nitrogen 14 mg/dL (7-17); Calcium 9.7 mg/dL (8.4-10.2); Carbon Dioxide 29 mmol/L (22-32); Chloride 102 mmol/L (98-107); Estimated Glomerular Filt Rate > 60.0 mL/min (>60); Globulin 2.9 g/dL (1.7-4.1); Glucose 109 mg/dL (80-110); HEMOLYSIS < 15 (0-50); Potassium 4.2 mmol/L (3.4-5.1); Sodium 136 mmol/L (137-145); Total Protein 7.1 g/dL (6.3-8.2)
== END ==
PROVIDERS: PCP Physician Assistant; Referring Provider Physician Assistant; Visit Provider Physician Assistant
DX: M81.0 Age-related osteoporosis without current pathological fracture (principal); Z79.899 Other long term (current) drug therapy
CPT/HCPCS: 36415; 80053

== ENCOUNTER → 2021-11-26 10:44 | Outpatient (CLI) | payer MEDICARE, SELFPAY ==
[2020-10-03 13:05] VITALS: BMI 30.2
[2021-11-26 12:17] LABS: Add Manual Diff / Slide Review NO; Basophils Absolute Auto 0 /uL (0-100); Basophils Percent Auto 0.6 % (0-2); Eosinophils Absolute Auto 200 /uL (0-450); Eosinophils Percent Auto 4.5 % (2-4); Hematocrit 40.1 % (36-46); Hemoglobin 13.8 g/dL (12.0-16.0); Lymphocytes Absolute Auto 1400 /uL (1100-4500); Lymphocytes Percent Auto 28.2 % (25-40); Mean Corpuscular HGB Conc 34.3 % (30-36); Mean Corpuscular Volume 93.1 fL (80-100); Monocytes Absolute Auto 600 /uL (0-900); Monocytes Percent Auto 11.5 % (3-14); Neutrophils Absolute Auto 2800 /uL (1500-7000); Neutrophils Percent Auto 55.2 % (50-75); Platelet Count 270 X10^3/uL (150-400); Red Blood Cell Count 4.31 X10^6/uL (4.0-5.2)
[2021-11-26 12:21] LABS: Alanine Aminotransferase 13 IU/L (<35); Albumin 4.2 g/dL (3.5-5.0); Albumin Globulin Ratio 1.2 (1.0-2.8); Alkaline Phosphatase 43 U/L (38-126); Aspartate Aminotransferase 22 IU/L (14-36); BUN Creatinine Ratio 16.7 (6-22); Bilirubin Total 0.5 mg/dL (0.2-1.3); Blood Urea Nitrogen 15 mg/dL (7-17); Calcium 9.7 mg/dL (8.4-10.2); Carbon Dioxide 32 mmol/L (22-32); Chloride 102 mmol/L (98-107); Cholesterol 199 mg/dL (140-199); Estimated Glomerular Filt Rate > 60.0 mL/min (>60); Globulin 3.5 g/dL (1.7-4.1); Glucose 99 mg/dL (80-110); HDL Cholesterol 66 mg/dL (40-60); HEMOLYSIS < 15 (0-50); LDL Cholesterol Calculated 122 mg/dL (<100); Potassium 4.1 mmol/L (3.4-5.1); Sodium 138 mmol/L (137-145); Total Protein 7.7 g/dL (6.3-8.2); Triglycerides 57 mg/dL (35-150)
[2021-11-26 12:52] LABS: TSH w/ Reflex to FT4 2.38 uIU/mL (0.47-4.68)
== END ==
PROVIDERS: PCP Physician Assistant; Referring Provider Physician Assistant; Visit Provider Physician Assistant
DX: E03.9 Hypothyroidism, unspecified (principal); E78.2 Mixed hyperlipidemia; R03.0 Elevated blood-pressure reading, without diagnosis of hypertension
CPT/HCPCS: 36415; 80053; 80061; 84443; 85025

== ENCOUNTER → 2022-02-25 12:42 | Outpatient (ROUT) | payer MEDICARE, SELFPAY ==
[2020-10-03 13:05] VITALS: BMI 30.2
[2022-02-25 13:32] LABS: COVID19 -Nasal RAPID Negative (Negative)
== END ==
PROVIDERS: PCP Physician Assistant; Visit Provider Physician Assistant
DX: Z20.822 Contact with and (suspected) exposure to COVID-19 (principal)
CPT/HCPCS: 87635

== ENCOUNTER → 2022-04-13 11:56 | Outpatient (CLI) | payer MEDICARE, SELFPAY ==
[2020-10-03 13:05] VITALS: BMI 30.2
[2022-04-13 13:52] LABS: COVID19 -Nasal RAPID Negative (Negative)
== END ==
PROVIDERS: PCP Physician Assistant; Visit Provider Physician Assistant
DX: Z20.822 Contact with and (suspected) exposure to COVID-19 (principal)
CPT/HCPCS: 87635

== ENCOUNTER 2022-06-19 11:40 | Emergency (ER) | payer MEDICARE, OTHER, SELFPAY ==
[2020-10-03 13:05] VITALS: BMI 30.2
[2022-06-19 11:43] VITALS: BP 197/120; PULSE 100; RESP 16; TEMP 37.2; O2SAT 97; BMI 32.1
[2022-06-19 14:11] VITALS: BP 193/120; RESP 20; TEMP 36.7; O2SAT 98
--- NOTE | 2022-06-19 16:38 | DI.RAD.S_ITS ---
PROCEDURE: XR LUMBAR SPINE 2-3V INDICATIONS: Back pain TECHNIQUE: 3 views of the lumbar spine were acquired. COMPARISON: [facility], CR, XR LUMBAR SPINE MIN 4V, 11/25/2020, 12:32. FINDINGS: Bones: Generalized decrease in osseous mineralization noted. Wedge-shaped T12 compression fracture with 75 percent anterior height loss is new from the prior exam. Compression fractures at L2, L3 and L4 remains stable from the prior exam. Disc space narrowing and sclerotic facet joints present lower lumbar spine. Atherosclerotic calcification in the abdominal aorta noted without evidence of aneurysm. Soft tissues: Overlying bowel gas pattern is normal. No suspicious soft tissue calcifications. IMPRESSION: Osteopenic T12 compression fracture is new from November 2020. Consider follow-up MRI and or vertebroplasty L2, L3 and L4 compression fractures, stable Multilevel degenerative disc disease and arthropathy Approved by: Amrit Hernandez M.D. on 06/19/2022 at 16:39
--- NOTE | 2022-06-19 16:39 | ED_ITS ---
HPI - Back Pain/Injury <Alex Gallo PA-C - Last Filed: 06/19/22 20:13> General Chief Complaint: Back Pain/Injury Stated Complaint: back pain, hx of broken back Time Seen by Provider: 06/19/22 12:05 Source: patient History of Present Illness HPI Narrative: Patient is a 81-year-old female presents with worsened from today with complaint of back pain it started about 2 weeks ago. Patient states he was she was vacationing in [facility] and broke her right arm. Patient have broken right arm she started to developed this low back pain on the right side that has now resolved. States she took some type of pain medicine while he ?does not know exactly what it was. States that she arrived home yesterday and has taken Aleve to relieve the pain. Last took Aleve last night at about 12:00 p.m.. Denies any chest pain shortness of breath. Also denies any or GI concerns. Denies any allergies to meds and is only here today because she will not be to see her primary care provider until Wednesday and really wanted something to help manage the pain. Related Data Home Medications Medication Instructions Recorded Confirmed ibuprofen 200 mg tablet 200 mg PO Q6H PRN 10/16/20 01/01/21 atorvastatin 20 mg tablet (Lipitor) 20 mg PO DAILY 11/25/20 01/01/21 levothyroxine 50 mcg capsule 50 mcg PO DAILY 11/25/20 01/01/21 Previous Rx's Medication Instructions Recorded benzonatate 100 mg capsule 100 mg PO BID-TID PRN cough #20 04/13/22 caps nitrofurantoin macrocrystal 100 mg 100 mg PO BID #9 caps 06/19/22 capsule Allergies Allergy/AdvReac Type Severity Reaction Status Date / Time No Known Drug Allergies Allergy Verified 06/19/22 11:43 Review of Systems <Alex Gallo PA-C - Last Filed: 06/19/22 20:13> Review of Systems Narrative: R.O.S.: General: No fever, chills or fatigue. Cardiovascular: No chest pain or palpitations Respiratory: No S.O.B. HEENT: No congestion, ear pain, rhinorrhea, sore throat or tinnitus Gastrointestinal: No nausea or vomiting Skin: No rash or associated abnormalities Musculoskeletal: Back pain? Neurological: Awake, alert and in not apparent distress. No Headaches, changes in vision or other related neurological concerns. Patient History <Alex Gallo PA-C - Last Filed: 06/19/22 20:13> Medical History (Updated 06/19/22 @ 16:51 by Alex Gallo PA-C) Fracture of L2 vertebra Greater trochanteric bursitis of right hip Osteoporosis Sciatica Social History household members: spouse and children Smoking Status: Never smoker Smoking Status: Never smoker alcohol intake frequency: holidays/special occasions only Substance Use Type: does not use Exam <Alex Gallo PA-C - Last Filed: 06/19/22 20:13> Narrative Exam Narrative: Physical Exam: ? General: normal appearance, well developed, well nourished, alert, and awake. Not in acute distress. ? Head: Normocephalic, no lesions. Chest: Lungs CTAB, no rales, rhonchi or wheezes. ?? Heart: RRR, no murmurs, rubs or gallops. Eyes: PERRLA, EOM's full, conjunctivae clear. ? Neuro: Physiological, no localizing findings, CN3-12 intact. ?? Extremities: Warm, well perfused, FROM, no deformities, no edema. ?? Skin: Normal, no rashes, no lesions noted. ?? PSYCHIATRIC: The mood is good, no blunted affect. Speech is clear. Thought process is linear, thought content is appropriate. The voice is without significant inflection. Gastrointestinal: Soft; NT; ND; Pos BS with Neg. rebound tenderness. No scars or major deformities noted on Visual Inspection. Musculoskeletal /back: Patient has tenderness to palpation at the right lower lumbar spinal area. Patient in the bed and is unstable for her broken right arm and arm sling. Patient was able to stand and tiptoe and heel stand at the bedside. Patient states she can walk but was not asked to do so at this time because patient appears to be unstable given her age and her arm sling. Initial Vital Signs Initial Vital Signs: Vital Signs Temperature 99.0 F 06/19/22 11:43 Pulse Rate 100 H 06/19/22 11:43 Respiratory Rate 16 06/19/22 11:43 Blood Pressure 197/120 H 06/19/22 11:43 Pulse Oximetry 97 06/19/22 11:43 Oxygen Delivery Method 06/19/22 11:43 <DO Suzy Velasco Last Filed: 06/20/22 13:29> Initial Vital Signs Initial Vital Signs: Vital Signs Temperature 99.0 F 06/19/22 11:43 Pulse Rate 100 H 06/19/22 11:43 Respiratory Rate 16 06/19/22 11:43 Blood Pressure 197/120 H 06/19/22 11:43 Pulse Oximetry 97 06/19/22 11:43 Oxygen Delivery Method 06/19/22 11:43 Course <Alex Gallo PA-C - Last Filed: 06/19/22 20:13> Orders Ordered: Discontinued Medications Ketorolac Tromethamine (Ketorolac 30 Mg/Ml Vial) 15 mg IM NOW ONE Stop: 06/19/22 16:39 Last Admin: 06/19/22 16:46 Dose: 15 mg Documented By: AT Nitrofurantoin Macrocrystals (Nitrofurantoin Er 100 Mg Capsule) 100 mg PO NOW ONE Stop: 06/19/22 17:45 Last Admin: 06/19/22 17:57 Dose: 100 mg Documented By: KALEIGH Vital Signs Vital signs: Vital Signs - 8 hr 06/19/22 14:11 06/19/22 18:06 Temperature 98.0 F Pulse Rate 81 Respiratory Rate 20 Blood Pressure 193/120 H 208/87 H Pulse Oximetry 98 99 Oxygen Delivery Method Room Air Room Air <DO Suzy Velasco Last Filed: 06/20/22 13:29> Orders Ordered: Discontinued Medications Ketorolac Tromethamine (Ketorolac 30 Mg/Ml Vial) 15 mg IM NOW ONE Stop: 06/19/22 16:39 Last Admin: 06/19/22 16:46 Dose: 15 mg Documented By: AT Nitrofurantoin Macrocrystals (Nitrofurantoin Er 100 Mg Capsule) 100 mg PO NOW ONE Stop: 06/19/22 17:45 Last Admin: 06/19/22 17:57 Dose: 100 mg Documented By: KB Vital Signs Vital signs: Vital Signs - 8 hr 06/19/22 14:11 06/19/22 18:06 Temperature 98.0 F Pulse Rate 81 Respiratory Rate 20 Blood Pressure 193/120 H 208/87 H Pulse Oximetry 98 99 Oxygen Delivery Method Room Air Room Air [facility] Back Pain/Injury <Alex Gallo PA-C - Last Filed: 06/19/22 20:13> Lab Data Labs: Lab Results 06/19/22 Range/Units 17:16 Urine RBC 0-1/hpf (0-5/HPF) Urine WBC 30-100/hpf H (0-5/HPF) Ur Squamous Epith Cells 1-5 /hpf (0-5/HPF) Urine Bacteria Many (>30) H (None) Ur Culture Indicated? Specimen cultured Urine Dip Bedside Urine Glucose Negative Bedside Urine Bilirubin - Negative Bedside Urine Ketone +/- 5 Urine Specific Ada 1.020 Bedside Urine Occult Blood +/- Bedside Urine pH 6.0 Bedside Urine Protein - Negative Bedside Urine Urobilinogen - Negative Bedside Urine Nitrite + Positive Bedside Urine Leukocytes ++ 125 Esterase Imaging Data Chest x-ray: Radiologist's Impression: PROCEDURE:? XR LUMBAR SPINE 2-3V ? INDICATIONS:? Back pain ? TECHNIQUE:? 3 views of the lumbar spine were acquired.? ? COMPARISON:? [facility], CR, XR LUMBAR SPINE MIN 4V, 11/25/2020, 12:32. ? FINDINGS:? ? Bones:? Generalized decrease in osseous mineralization noted.? Wedge-shaped T12 compression fracture with 75 percent anterior height loss is new from the prior exam.? Compression fractures at L2, L3 and L4 remains stable from the prior exam.? Disc space narrowing and sclerotic facet joints present lower lumbar spine.? Atherosclerotic calcification in the abdominal aorta noted without evidence of aneurysm. ? Soft tissues:? Overlying bowel gas pattern is normal.? No suspicious soft tissue calcifications.? ? ? IMPRESSION:? ? Osteopenic T12 compression fracture is new from November 2020.? Consider follow- up MRI and or vertebroplasty ? L2, L3 and L4 compression fractures, stable ? Multilevel degenerative disc disease and arthropathy ? ? ? Approved by: Amrit Hernandez M.D. on 06/19/2022 at 16:39? MDM Narrative Medical decision making narrative: Patient is an 81-year-old female presents emergency room today with complaint right-sided low back pain it started about 2 weeks ago while she was vacationing in [facility]. Also admits to break her right arm no correlation and thinks this letter back pain. In the emergency room today because she will not appear to follow-up with the primary care provider until Wednesday of next week and is concerned about the pain. Lumbar spinal x-ray was ordered to rule out any other emergent concerns. POC urine ordered and was positive for UTI. Patient states her pharmacy a closes at about 6:00 p.m. today and she would like to receive some of her medications for. First dose of 100 mg of Macrobid given p.o. today and the remaining Macrobid was sent to the patient's pharmacy. Patient discharged and advised to return to the emergency room should any emergent concerns arise. Patient agrees to plan. <Mateusz Ayan, DO - Last Filed: 06/20/22 13:29> Lab Data Labs: Lab Results 06/19/22 Range/Units 17:16 Urine RBC 0-1/hpf (0-5/HPF) Urine WBC 30-100/hpf H (0-5/HPF) Ur Squamous Epith Cells 1-5 /hpf (0-5/HPF) Urine Bacteria Many (>30) H (None) Ur Culture Indicated? Specimen cultured Urine Dip Bedside Urine Glucose Negative Bedside Urine Bilirubin - Negative Bedside Urine Ketone +/- 5 Urine Specific Ada 1.020 Bedside Urine Occult Blood +/- Bedside Urine pH 6.0 Bedside Urine Protein - Negative Bedside Urine Urobilinogen - Negative Bedside Urine Nitrite + Positive Bedside Urine Leukocytes ++ 125 Esterase Discharge Plan Departure Patient Disposition: Home Clinical Impression: Back pain Instructions: DI for Low Back Pain Activity Restrictions/Additional Instructions: *You have been diagnosed with urinary tract infection. I have ordered antibiotics for urinary tract infection received her 1st dose here today you can take the rest of it up from the pharmacy tomorrow. Also please return to the emergency room should you have any emergent concerns. [ ] *What to do: *Please continue to take your regular medications as directed. [x] New medication prescriptions sent to your pharmacy: [ ] [ ] New medication written as a paper prescription [ ] No new medications given *Please follow up with your primary care provider in 2-3 days, call for an appointment. Let them know you were seen in the Emergency Department and that we ask that you be seen in follow up. We will electronically transmit a record of today's note if your PCP is in our system *If you do not have a primary care provider please contact the [facility] Resource line at [phone]. They will ask some questions about your medical history and help get you set up with a doctor in the community. *Return to Emergency Department if you should have any new, worsening or concerning symptoms, such as [fever greater than 101 F, shaking chills, worsening pain, persistent vomiting or other bothersome symptoms] Prescriptions: New nitrofurantoin macrocrystal 100 mg capsule 100 mg PO BID Qty: 9 0RF Rx Instructions: must administer with a meal/food No Action benzonatate 100 mg capsule 100 mg PO BID-TID PRN (Reason: cough) Qty: 20 0RF ibuprofen 200 mg tablet 200 mg PO Q6H PRN levothyroxine 50 mcg capsule 50 mcg PO DAILY atorvastatin [Lipitor] 20 mg tablet 20 mg PO DAILY Referrals: Paulina Posada PA-C [Primary Care Provider] - Visit Report Forms: Patient Portal/API <Mateusz Botello DO - Last Filed: 06/20/22 13:29> Cosign ED Attending Cosignature Attestation: Dr Botello Co-Sign Statement: I was available for consultation during this patient's emergency department visit. This chart is signed by myself for administrative purposes only. I did not have direct contact with this patient during this visit. They were seen independently by the APC.
[2022-06-19] MEDS: KETOROLAC 30 MG/ML VIAL 15 MG IM (16:46)
[2022-06-19 17:51] LABS: Bacteria Urine Many (>30); Culture Indicated Urine Specimen Cultured; RBC Urine 0-1/HPF (0-5/HPF); Squamous Epithelial Cell Urine 1-5 /HPF (0-5/HPF); WBC Urine 30-100/HPF (0-5/HPF)
[2022-06-19] MEDS: NITROFURANTOIN ER 100 MG CAPSULE PO (17:57)
[2022-06-19 18:06] VITALS: BP 208/87; PULSE 81; O2SAT 99
== END 2022-06-19 18:08 | disposition home or self-care (01) ==
PROVIDERS: Emergency Provider Physician Assistant; PCP Physician Assistant
DX: M54.50 Low back pain, unspecified (principal)
CPT/HCPCS: 72100; 81003; 81015; 87077; 87086; 87186; 96372; 99283; 99284; J1885

== ENCOUNTER → 2022-06-24 14:00 | Outpatient (CLI) | payer MEDICARE, OTHER, SELFPAY ==
[2020-10-03 13:05] VITALS: BMI 30.2
--- NOTE | 2022-06-24 | DI.RAD.S_ITS ---
PROCEDURE: XR SHOULDER RT MIN 2V INDICATIONS: RIGHT SHOULDER PAIN TECHNIQUE: 3 views of the shoulder were acquired. COMPARISON: None. FINDINGS: Bones: Comminuted fracture of the right humeral head and neck. The glenoid fossa also appears irregular and is possibly fractured. No suspicious bony lesions. Visualized ribs appear intact. Degenerative changes of the right acromioclavicular joint Soft tissues: No suspicious soft tissue calcifications. IMPRESSION: 1. Comminuted fracture of the right humeral head and neck. 2. Possible fracture of the glenoid fossa. Dictated by: Charles Gonzalez M.D. on 06/24/2022 at 17:55 Approved by: Charles Gonzalez M.D. on 06/24/2022 at 17:57
--- NOTE | 2022-06-24 | DI.RAD.S_ITS ---
PROCEDURE: XR HUMERUS RT 2V INDICATIONS: Other fracture of shaft of right humerus, subseque TECHNIQUE: 3 views of the humerus were acquired. COMPARISON: None. FINDINGS: Bones: Degenerative changes of the right acromioclavicular joint. Comminuted fracture of the humeral head and neck. Irregularity of the glenoid fossa also possibly fractured. The humerus distal to the humeral neck is intact. Soft tissues: No suspicious soft tissue calcifications. IMPRESSION: 1. Comminuted fracture of the humeral head and neck. 2. Possible fracture of the glenoid fossa. Dictated by: Charles Gonzalez M.D. on 06/24/2022 at 17:57 Approved by: Charles Gonzalez M.D. on 06/24/2022 at 17:58
== END ==
PROVIDERS: PCP Family Medicine; Referring Provider Family Medicine; Visit Provider Family Medicine
DX: S42.291A Other displaced fracture of upper end of right humerus, initial encounter for closed fracture (principal); M25.511 Pain in right shoulder
CPT/HCPCS: 73030; 73060

== ENCOUNTER → 2022-07-04 12:37 | Outpatient (CLI) | payer MEDICARE, OTHER, SELFPAY ==
[2020-10-03 13:05] VITALS: BMI 30.2
--- NOTE | 2022-07-04 12:40 | DI.MRI.S_ITS ---
PROCEDURE: MR LUMBAR SPINE WO CON INDICATIONS: T12, L2, L3 and L4 fracture TECHNIQUE: Noncontrast sagittal T1 spin echo and T2 fast echo, sagittal STIR, and T2 fast spin echo through the lumbar spine. In cases with scoliosis, additional coronal T2 fast spin echo may be performed. COMPARISON: [facility], CR, XR LUMBAR SPINE MIN 4V, 11/25/2018, 10:52. [facility], MR, MR LUMBAR SPINE WO CON, 07/23/2020, 19:04. FINDINGS: Image quality: Excellent. Alignment and Curvature: 5 lumbar type vertebral bodies are present by plain film. Roughly 3 mm of retrolisthesis of L2 on L3 and L3 on L4. Mild kyphosis at T12. Bone Marrow: Marrow is of normal overall signal. There is moderate wedging of the T12 vertebral body. Ill-defined linear low T1/T2 signal intensity traverses the T12 vertebral body with moderate surrounding ill-defined STIR signal elevation. There is moderate chronic wedging of L2. Mild chronic wedging of L3 and L4. Mild reactive signal throughout the endplates of the thoracolumbar spine. Spinal Cord: Conus medullaris terminates at the lower L1 level. Visualized cord demonstrates normal signal and size. Paraspinous Soft Tissues: No paravertebral masses. T11-T12: Moderate disc desiccation. Moderate retropulsion at the superior T12 level, measuring roughly 7 mm anteroposterior. Mild facet and ligamentum flavum hypertrophy. Moderate canal stenosis. Mild bilateral foraminal stenosis. T12-L1: Mild disc desiccation and diffuse disc bulge with superimposed left paracentral protrusion. Mild bilateral facet hypertrophy. Mild canal stenosis. Mild bilateral foraminal stenosis. No significant change. L1-L2: Moderate disc desiccation. Mild diffuse disc bulge. Mild facet and ligamentum flavum hypertrophy. Mild canal stenosis. Mild bilateral foraminal stenosis. L2-L3: Moderate disc desiccation. Mild diffuse disc bulge. Mild facet hypertrophy bilaterally. Mild canal stenosis. Mild bilateral foraminal stenosis. L3-L4: Moderate disc height loss and desiccation. Moderate diffuse disc bulge. Mild facet and ligamentum flavum hypertrophy. Mild canal stenosis. Moderate right and mild left foraminal stenosis. No significant change. L4-L5: Moderate disc desiccation. Mild disc height loss. Moderate diffuse disc bulge. Mild facet and ligamentum flavum hypertrophy. Mild epidural lipomatosis. Moderate canal stenosis. Moderate bilateral foraminal stenosis. No significant change. L5-S1: Moderate disc desiccation. Mild diffuse disc bulge. Mild bilateral facet hypertrophy. Mild canal stenosis. Moderate to severe left and mild right foraminal stenosis. Mild left L5 nerve root compression, new since the prior examination. IMPRESSION: 1. Moderate subacute T12 compression fracture associated with retropulsion and moderate canal stenosis. 2. Multilevel degenerative disc and facet disease, as well as ligamentum flavum hypertrophy and epidural lipomatosis. 3. Multilevel canal stenoses, worst at T11-T12 and L4-L5 where there are moderate canal stenosis. 4. Multilevel foraminal stenoses, worst at L5-S1 where there is associated intraforaminal nerve root compression. Recommend correlation with clinical symptoms to ascertain relevance of this finding. Dictated by: Efe Hawkins M.D. on 07/06/2022 at 8:26 Approved by: Efe Hawkins M.D. on 07/06/2022 at 10:32
== END ==
PROVIDERS: PCP Family Medicine; Referring Provider Physical Medicine & Rehabilitation; Visit Provider Physical Medicine & Rehabilitation
DX: S32.020G Wedge compression fracture of second lumbar vertebra, subsequent encounter for fracture with delayed healing (principal); M48.061 Spinal stenosis, lumbar region without neurogenic claudication; M48.04 Spinal stenosis, thoracic region
CPT/HCPCS: 72148

== ENCOUNTER 2022-07-15 13:59 | Emergency (ER) | payer MEDICARE, OTHER, SELFPAY ==
[2020-10-03 13:05] VITALS: BMI 30.2
[2022-07-15 14:43] VITALS: BP 169/75; PULSE 83; RESP 22; TEMP 37.2; O2SAT 96
[2022-07-15 15:25] LABS: Appearance Urine UA CLEAR; Bilirubin Urine UA NEGATIVE (NEGATIVE); Color Urine UA YELLOW; Glucose Urine UA NEGATIVE (Negative); Ketones Urine UA NEGATIVE (NEGATIVE); Leukocyte Esterase Urine UA 1+ (NEGATIVE); Nitrite Urine UA NEGATIVE (Negative); Occult Blood Urine UA NEGATIVE (Negative); Protein Urine UA NEGATIVE (Negative); Specific Gravity Urine UA <=1.005 (1.000-1.035); Urobilinogen Urine UA 0.2 E.U./dL (0.2)
[2022-07-15 15:26] LABS: pH Urine UA 5.5 (4.5-8.0)
[2022-07-15 15:29] LABS: Bacteria Urine Occasional (0-1); Culture Indicated Urine Specimen Cultured; RBC Urine 1-5/HPF (0-5/HPF); Squamous Epithelial Cell Urine 1-5 /HPF (0-5/HPF); Transitional Epi Cells Urine 1-5/HPF (0-5/HPF); WBC Urine 5-10/HPF (0-5/HPF)
--- NOTE | 2022-07-15 17:10 | DI.RAD.S_ITS ---
PROCEDURE: XR CHEST 1V INDICATIONS: suspected sepsis TECHNIQUE: One view of the chest was acquired. COMPARISON: [facility], , XR CHEST 1V, 01/13/2020, 10:17. [facility], , CHEST 2 VIEW, 05/27/2016, 13:37. FINDINGS: Surgical changes and devices: None. Lungs and pleura: Lungs are clear. No pleural effusions or pneumothorax. Mediastinum: Mediastinal contours appear normal. Heart size is normal. The aorta is tortuous Bones and chest wall: No suspicious bony lesions. Overlying soft tissues appear unremarkable. IMPRESSION: No acute cardiopulmonary abnormality. Dictated by: Charles Gonzalez M.D. on 07/15/2022 at 18:14 Approved by: Charles Gonzalez M.D. on 07/15/2022 at 18:15
[2022-07-15 17:15] LABS: Add Manual Diff / Slide Review NO; Basophils Absolute Auto 0 /uL (0-100); Basophils Percent Auto 0.5 % (0-2); Eosinophils Absolute Auto 300 /uL (0-450); Eosinophils Percent Auto 5.2 % (2-4); Hemoglobin 13.5 g/dL (12.0-16.0); Lymphocytes Absolute Auto 1100 /uL (1100-4500); Lymphocytes Percent Auto 21.2 % (25-40); Mean Corpuscular HGB Conc 34.6 % (30-36); Mean Corpuscular Hemoglobin 32.2 PG (26-34); Mean Corpuscular Volume 93.1 fL (80-100); Monocytes Absolute Auto 500 /uL (0-900); Monocytes Percent Auto 9.6 % (3-14); Neutrophils Absolute Auto 3400 /uL (1500-7000); Neutrophils Percent Auto 63.5 % (50-75); Platelet Count 230 X10^3/uL (150-400); Red Blood Cell Count 4.19 X10^6/uL (4.0-5.2); White Blood Cell Count 5.3 X10^3/uL (4.5-11.0)
[2022-07-15 17:17] VITALS: BP 162/79; PULSE 97; RESP 18; O2SAT 97
[2022-07-15 17:18] LABS: Alanine Aminotransferase 12 IU/L (<35); Albumin 4.3 g/dL (3.5-5.0); Albumin Globulin Ratio 1.3 (1.0-2.8); Alkaline Phosphatase 99 U/L (38-126); Aspartate Aminotransferase 23 IU/L (14-36); Bilirubin Total 0.5 mg/dL (0.2-1.3); Blood Urea Nitrogen 15 mg/dL (7-17); Calcium 9.3 mg/dL (8.4-10.2); Carbon Dioxide 26 mmol/L (22-32); Chloride 97 mmol/L (98-107); Estimated Glomerular Filt Rate > 60 mL/min (>60); Globulin 3.4 g/dL (1.7-4.1); Glucose 90 mg/dL (80-110); HEMOLYSIS < 15 (0-50); Potassium 4.3 mmol/L (3.4-5.1); Sodium 133 mmol/L (137-145); Total Protein 7.7 g/dL (6.3-8.2)
[2022-07-15 17:31] LABS: Lipase 60 U/L (23-300)
[2022-07-15 17:37] LABS: Vitamin D 25 Hydroxy (D3) 68.3 ng/mL (30.0-100.0)
[2022-07-15 17:49] LABS: Procalcitonin 0.05 ng/mL (<0.5)
[2022-07-15 17:50] LABS: TSH w/ Reflex to FT4 4.86 uIU/mL (0.47-4.68)
[2022-07-15 20:03] LABS: Free T4, Direct Thyroxine 1.83 ng/dL (0.78-2.19)
[2022-07-15 21:05] LABS: COVID19 -Nasal RAPID Negative (Negative)
--- NOTE | 2022-07-15 22:57 | ED_ITS ---
HPI - Back Pain/Injury General Chief Complaint: Back Pain/Injury Stated Complaint: Severe back pain, Compression frature Time Seen by Provider: 07/15/22 20:44 Source: patient History of Present Illness HPI Narrative: 81F nonsomoker with a history of known hypertension, hyperlipidemia and compression fracture of her lumbar spine presents with increasing pain in her lumbar spine with radiation down her right leg which is preventing her from ambulation. She also has some left flank pain that seems to wrap around that is new. She denies any new injury but states that her last compression fracture happened in the absence of trauma or injury. She denies any fever or chills. She has no chest pain or shortness of breath. She is not dizzy nor weak or lightheaded. She states her pain is significantly worse with motion and she is unable to walk due to the pain. She denies loss of control of bowel or bladder and has no dysuria, frequency or urgency. She states that her right leg hurts significantly with range of motion but does not feel as if it is weak. Related Data Home Medications Medication Instructions Recorded Confirmed ibuprofen 200 mg tablet 200 mg PO Q6H PRN 10/16/20 07/01/22 atorvastatin 20 mg tablet (Lipitor) 20 mg PO DAILY 11/25/20 07/01/22 calcitonin (salmon) 200 1 spray intranasal (ALT) DAILY 07/01/22 07/01/22 unit/actuation nasal spray levothyroxine 88 mcg tablet 88 mcg PO DAILY 07/01/22 07/01/22 losartan 50 mg tablet 50 mg PO DAILY 07/01/22 07/01/22 tramadol 50 mg tablet 50 mg PO DAILY 07/01/22 07/01/22 zolpidem 5 mg tablet 5 mg PO BEDTIME 07/01/22 07/01/22 Previous Rx's Medication Instructions Recorded gabapentin 300 mg capsule 300 mg PO BEDTIME #14 caps 07/16/22 methylprednisolone 4 mg tablets in See Rx Instructions PO .COMPLEX 07/16/22 a dose pack (Medrol (Be)) #21 ea Allergies Allergy/AdvReac Type Severity Reaction Status Date / Time No Known Drug Allergies Allergy Verified 07/15/22 17:03 Review of Systems Review of Systems Narrative: GENERAL: Denies chills, fatigue, malaise, fever, sweats. HEENT: Denies sinus pain, ear pain, sore throat, difficulty swallowing, dizziness. RESPIRATORY: Denies dyspnea, cough, wheezing, hemoptysis, sputum. CARDIOVASCULAR: Denies chest pain, palpitations, orthopnea, edema, GASTROINTESTINAL: Denies nausea, vomiting, abdominal pain, diarrhea, constipation, melena. : Denies dysuria, frequency, incontinence, hematuria, urinary retention. MUSCULOSKELETAL: See HPI SKIN: Denies rash, skin lesions, or other NEUROLOGIC: See HPI PSYCHIATRIC: No concerning psychosocial issues. 12 point review of systems is negative except for those stated above Patient History Medical History Fracture of L2 vertebra Greater trochanteric bursitis of right hip Osteoporosis Sciatica Shoulder fracture, right T12 compression fracture Social History household members: spouse and children Smoking Status: Never smoker Smoking Status: Never smoker alcohol intake frequency: holidays/special occasions only Substance Use Type: does not use Exam Narrative Exam Narrative: GENERAL: [81] year old patient appears stated age. Well-developed patient, in mild distress. HEAD: Atraumatic. Normocephalic. EYES: Pupils equal round and reactive. Extraocular motions intact. No scleral icterus. No injection or drainage. ENT: Nose without bleeding, purulent drainage. Throat without erythema, tonsilla r hypertrophy or exudate. Airway patent. NECK: Trachea midline. Non tender CARDIOVASCULAR: Regular rate and rhythm without murmurs, gallops, or rubs. RESPIRATORY: Clear to auscultation. Breath sounds equal bilaterally. No wheezes, rales, or rhonchi. GASTROINTESTINAL: Abdomen soft, non-tender, nondistended. EXTREMITIES: No edema or joint tenderness. BACK: platinum and palladium kettle tender but free of any obvious external abnormalities. Patient exam notes decreased range of motion and muscle spasm, but no CVA tenderness, or vertebral point tenderness. There are no symptoms of cauda equina such as saddle anesthesia, and decreased reflexes, decreased sensation or strength. NEURO: AOx3. SKIN: No rash or erythema of visible areas Initial Vital Signs Initial Vital Signs: Vital Signs Temperature 98.9 F 07/15/22 14:43 Pulse Rate 83 07/15/22 14:43 Respiratory Rate 22 07/15/22 14:43 Blood Pressure 169/75 H 07/15/22 14:43 Pulse Oximetry 96 09/28/22 14:43 Oxygen Delivery Method 07/15/22 14:43 Course Orders Ordered: Discontinued Medications Gabapentin (Gabapentin 300 Mg Capsule) 300 mg PO NOW ONE Stop: 07/15/22 23:42 Last Admin: 07/15/22 23:57 Dose: 300 mg Documented By: ATA Ondansetron HCl (Ondansetron 4 Mg Odt) 4 mg SL NOW ONE Stop: 07/16/22 00:46 Last Admin: 07/16/22 00:49 Dose: 4 mg Documented By: ATA Oxycodone/Acetaminophen (Oxycodone/Acetaminophen 5/325 Tablet) 2 tab PO NOW ONE Stop: 07/15/22 23:42 Last Admin: 07/15/22 23:57 Dose: 2 tab Documented By: ATA Prednisone (Prednisone 20 Mg Tablet) 40 mg PO NOW ONE Stop: 07/15/22 23:42 Last Admin: 07/15/22 23:57 Dose: 40 mg Documented By: ATA Reevaluation(s) Reevaluation #1: Patient has significant improvement in symptoms after above-stated therapies and is able to ambulate through the department, she is quite pleased in fact surprised at her response to therapy Vital Signs Vital signs: Vital Signs - 8 hr 07/15/22 17:17 Pulse Rate 97 H Respiratory Rate 18 Blood Pressure 162/79 H Pulse Oximetry 97 Oxygen Delivery Method Room Air MDM - Back Pain/Injury Lab Data Result diagrams: 07/15/22 15:18 07/15/22 15:18 Labs: Lab Results 07/15/22 07/15/22 07/15/22 Range/Units 15:03 15:18 15:18 WBC (4.5-11.0) X10^3/uL RBC (4.0-5.2) X10^6/uL Hgb (12.0-16.0) g/dL Hct (36-46) % MCV (80-100) fL MCH (26-34) PG MCHC (30-36) % RDW (11.6-14.8) % Plt Count (150-400) X10^3/uL Neut % (Auto) (50-75) % Lymph % (Auto) (25-40) % [place] % (Auto) (3-14) % Eos % (Auto) (2-4) % Baso % (Auto) (0-2) % Neut # (Auto) (0869-7473) /uL Lymph # (Auto) (7087-3722) /uL Fountain # (Auto) (0-900) /uL Eos # (Auto) (0-450) /uL Baso # (Auto) (0-100) /uL Sodium (137-145) mmol/L Potassium (3.4-5.1) mmol/L Chloride (98-107) mmol/L Carbon Dioxide (22-32) mmol/L BUN (7-17) mg/dL Creatinine (0.52-1.04) mg/dL Estimated GFR (>60) mL/min BUN/Creatinine Ratio (6-22) Glucose (80-110) mg/dL Lactate (0.7-2.1) mmol/L Calcium (8.4-10.2) mg/dL Total Bilirubin (0.2-1.3) mg/dL AST (14-36) IU/L ALT (<35) IU/L Alkaline Phosphatase (38-126) U/L Total Protein (6.3-8.2) g/dL Albumin (3.5-5.0) g/dL Globulin (1.7-4.1) g/dL Albumin/Globulin Ratio (1.0-2.8) Lipase (23-300) U/L 25-OH Vitamin D Total 68.3 (30.0-100.0) ng/mL Procalcitonin (<0.5) ng/mL TSH 4.86 H (0.47-4.68) uIU/mL Free T4 1.83 (0.78-2.19) ng/dL Urine Color Yellow Urine Appearance Clear Urine pH 5.5 (4.5-8.0) Ur Specific [place] <=1.005 (1.000-1.035) Urine Protein Negative (Negative) Urine Glucose (UA) Negative (Negative) g/dL Urine Ketones Negative (NEGATIVE) Urine Occult Blood Negative (Negative) Urine Nitrate Negative (Negative) Urine Bilirubin Negative (NEGATIVE) Urine Urobilinogen 0.2 (0.2) E.U./dL Ur Leukocyte Esterase 1+ H (NEGATIVE) Urine RBC 1-5/hpf (0-5/HPF) Urine WBC 5-10/hpf H (0-5/HPF) Ur Squamous Epith Cells 1-5 /hpf (0-5/HPF) Ur Transition Epith Cell 1-5/hpf (0-5/HPF) Urine Bacteria Occasional (0-1) (None) Ur Culture Indicated? Specimen cultured SARS-CoV-2 (PCR) (Negative) 07/15/22 07/15/22 07/15/22 Range/Units 15:18 15:18 15:18 WBC 5.3 (4.5-11.0) X10^3/uL RBC 4.19 (4.0-5.2) X10^6/uL Hgb 13.5 (12.0-16.0) g/dL Hct 39.0 (36-46) % MCV 93.1 (80-100) fL MCH 32.2 (26-34) PG MCHC 34.6 (30-36) % RDW 14.0 (11.6-14.8) % Plt Count 230 (150-400) X10^3/uL Neut % (Auto) 63.5 (50-75) % Lymph % (Auto) 21.2 L (25-40) % [place]ountain % (Auto) 9.6 (3-14) % Eos % (Auto) 5.2 H (2-4) % Baso % (Auto) 0.5 (0-2) % Neut # (Auto) 3400 (6839-8720) /uL Lymph # (Auto) 1100 (4383-1788) /uL Fountain # (Auto) 500 (0-900) /uL Eos # (Auto) 300 (0-450) /uL Baso # (Auto) 0 (0-100) /uL Sodium 133 L (137-145) mmol/L Potassium 4.3 (3.4-5.1) mmol/L Chloride 97 L (98-107) mmol/L Carbon Dioxide 26 (22-32) mmol/L BUN 15 (7-17) mg/dL Creatinine 0.75 (0.52-1.04) mg/dL Estimated GFR > 60 (>60) mL/min BUN/Creatinine Ratio 20.0 (6-22) Glucose 90 (80-110) mg/dL Lactate (0.7-2.1) mmol/L Calcium 9.3 (8.4-10.2) mg/dL Total Bilirubin 0.5 (0.2-1.3) mg/dL AST 23 (14-36) IU/L ALT 12 (<35) IU/L Alkaline Phosphatase 99 (38-126) U/L Total Protein 7.7 (6.3-8.2) g/dL Albumin 4.3 (3.5-5.0) g/dL Globulin 3.4 (1.7-4.1) g/dL Albumin/Globulin Ratio 1.3 (1.0-2.8) Lipase 60 (23-300) U/L 25-OH Vitamin D Total (30.0-100.0) ng/mL Procalcitonin 0.05 (<0.5) ng/mL TSH (0.47-4.68) uIU/mL Free T4 (0.78-2.19) ng/dL Urine Color Urine Appearance Urine pH (4.5-8.0) Ur Specific [place] (1.000-1.035) Urine Protein (Negative) Urine Glucose (UA) (Negative) g/dL Urine Ketones (NEGATIVE) Urine Occult Blood (Negative) Urine Nitrate (Negative) Urine Bilirubin (NEGATIVE) Urine Urobilinogen (0.2) E.U./dL Ur Leukocyte Esterase (NEGATIVE) Urine RBC (0-5/HPF) Urine WBC (0-5/HPF) Ur Squamous Epith Cells (0-5/HPF) Ur Transition Epith Cell (0-5/HPF) Urine Bacteria (None) Ur Culture Indicated? SARS-CoV-2 (PCR) (Negative) 07/15/22 07/15/22 Range/Units 17:15 23:51 WBC (4.5-11.0) X10^3/uL RBC (4.0-5.2) X10^6/uL Hgb (12.0-16.0) g/dL Hct (36-46) % MCV (80-100) fL MCH (26-34) PG MCHC (30-36) % RDW (11.6-14.8) % Plt Count (150-400) X10^3/uL Neut % (Auto) (50-75) % Lymph % (Auto) (25-40) % [place] % (Auto) (3-14) % Eos % (Auto) (2-4) % Baso % (Auto) (0-2) % Neut # (Auto) (0352-2892) /uL Lymph # (Auto) (9498-5185) /uL [place]ountain # (Auto) (0-900) /uL Eos # (Auto) (0-450) /uL Baso # (Auto) (0-100) /uL Sodium (137-145) mmol/L Potassium (3.4-5.1) mmol/L Chloride (98-107) mmol/L Carbon Dioxide (22-32) mmol/L BUN (7-17) mg/dL Creatinine (0.52-1.04) mg/dL Estimated GFR (>60) mL/min BUN/Creatinine Ratio (6-22) Glucose (80-110) mg/dL Lactate 0.9 (0.7-2.1) mmol/L Calcium (8.4-10.2) mg/dL Total Bilirubin (0.2-1.3) mg/dL AST (14-36) IU/L ALT (<35) IU/L Alkaline Phosphatase (38-126) U/L Total Protein (6.3-8.2) g/dL Albumin (3.5-5.0) g/dL Globulin (1.7-4.1) g/dL Albumin/Globulin Ratio (1.0-2.8) Lipase (23-300) U/L 25-OH Vitamin D Total (30.0-100.0) ng/mL Procalcitonin (<0.5) ng/mL TSH (0.47-4.68) uIU/mL Free T4 (0.78-2.19) ng/dL Urine Color Urine Appearance Urine pH (4.5-8.0) Ur Specific [place] (1.000-1.035) Urine Protein (Negative) Urine Glucose (UA) (Negative) g/dL Urine Ketones (NEGATIVE) Urine Occult Blood (Negative) Urine Nitrate (Negative) Urine Bilirubin (NEGATIVE) Urine Urobilinogen (0.2) E.U./dL Ur Leukocyte Esterase (NEGATIVE) Urine RBC (0-5/HPF) Urine WBC (0-5/HPF) Ur Squamous Epith Cells (0-5/HPF) Ur Transition Epith Cell (0-5/HPF) Urine Bacteria (None) Ur Culture Indicated? SARS-CoV-2 (PCR) Negative (Negative) Imaging Data Chest x-ray: Radiologist's Impression: [address] [address] XRay Report Signed Patient: Celine Arreola MR#: [id number] : 1940 Acct:[id number] Age/Sex: 81 / F Date of Service: 07/15/22 Loc: ED Accession Number: [id number] ?? Procedure: XR chest 1V Ordering Provider: Selina Brewer MD PROCEDURE:? XR CHEST 1V ? INDICATIONS:? suspected sepsis ? TECHNIQUE:? One view of the chest was acquired.? ? COMPARISON:? [facility], CR, XR CHEST 1V, 01/13/2020, 10:17.? [facility], , CHEST 2 VIEW, 05/27/2016, 13:37. ? FINDINGS:? ? Surgical changes and devices:? None.? ? Lungs and pleura:? Lungs are clear.? No pleural effusions or pneumothorax.? ? Mediastinum:? Mediastinal contours appear normal.? Heart size is normal.? The aorta is tortuous ? Bones and chest wall:? No suspicious bony lesions.? Overlying soft tissues appear unremarkable.? ? IMPRESSION:? No acute cardiopulmonary abnormality. ? ? ? Dictated by: Charles Gonzalez M.D. on 07/15/2022 at 18:14 ? ? Approved by: Charles Gonzalez M.D. on 07/15/2022 at 18:15 ? Lumbar CT: Radiologist's Impression: [address] [address] [address] Scan Report Signed Patient: Celine Arreola MR#: [id number] : 1940 Acct:[id number] Age/Sex: 81 / F Date of Service: 07/15/22 Loc: ED Accession Number: [id number] ?? Procedure: CT lumbar spine wo con Ordering Provider: Derek Amos D.O. PROCEDURE:? CT LUMBAR SPINE WO CON ? INDICATIONS:? severe lumbar pain ? TECHNIQUE:? Noncontrast 3 mm thick sections acquired from the T12 level to the sacrum.? Sagittal and coronal reformats were constructed.? For radiation dose reduction, the following was used:? automated exposure control.? ? COMPARISON:? [facility], MR, LUMBAR SPINE WO CON, 07/04/2022, 12:52. ? FINDINGS:? Image quality:? Excellent.? ? Bones:? There is unchanged bony alignment.? Multiple compression fractures are redemonstrated within the lower thoracic and lumbar spine.? These include a moderate to severe superior endplate compression fracture of the T12 vertebral body with slightly increased loss of height anteriorly of greater than 75%.? There is mild posterior displacement of a fracture fragment along the superior endplate with associated moderate spinal canal narrowing.? Moderate superior endplate scalloping of the? L2 vertebral body as well as mild superior scalloping of the L3 and L4 vertebral bodies appear similar to the recent prior MRI study.? No new compression fractures.? There is diffuse osteopenia.? No pars defects.? Multilevel degenerative disc disease redemonstrated throughout the lumbar spine. ? Soft tissues:? No retroperitoneal masses or hematomas.? Visualized aorta is normal in caliber.? There is a partially visualized hiatal hernia.? ? IMPRESSION:? ? 1. Moderate to severe superior endplate compression fracture of the T12 vertebral body with a subacute appearance on recent MRI.? There is slight increased loss of height anteriorly.? Moderate spinal canal narrowing redemonstrated. ? 2. Additional compression deformities within the superior endplates of L2, L3, and L4 vertebral bodies appear grossly unchanged.? ? ? Dictated by: Juan Bowden M.D. on 07/16/2022 at 0:52 ? ? Approved by: Juan Bowden M.D. on 07/16/2022 at 1:01 ? CT scan - abdomen/pelvis: Radiologist's Impression: Celine Arreola??81??F??1940 ? Allergy/Adv: No Known Drug Allergies Close Pelvis CT (Signed) Juan Bowden - 07/15/[address] (Signed) Juan Bowden - 07/15/22 Chest X-Ray (Signed) Charles Gonzalez - 07/15/22 Lumbar Spine MRI (Signed) Efe Hawkins - 07/04/22 Shoulder X-Ray (Signed) Charles Gonzalez - 06/24/22 Humerus X-Ray (Signed) Charles Gonzalez - 06/24/22 Lumbar Spine X-Ray (Signed) Amrit Hernandez - 06/19/22 Myocardial Perfusion Scan Nuc Med (Signed) Brennan Davison - 01/30/21 Lumbar Spine X-Ray (Signed) Desiree Ibrahim - 11/25/20 Lumbar Spine X-Ray (Cancelled) 11/25/20 Lumbar Spine X-Ray (Signed) [place] - 10/16/20 Lumbar Spine X-Ray (Signed) Dean Santos - 08/21/20 Hip X-Ray (Signed) Dean Santos - 08/21/20 Lumbar Spine MRI (Signed) Nunu Jansen - 07/23/20 Bone Densitometry 04/01/20 Abdomen Ultrasound (Signed) Haris Valentin - 01/13/[address] (Signed) Haris Valentin - 01/13/20 Chest X-Ray (Signed) Haris Valentin - 01/13/20 Lumbar Spine MRI (Signed) Brad Dumont - 12/06/18 Lumbar Spine X-Ray (Signed) Dean Santos - 11/25/18 Hip X-Ray (Signed) Dean Santos - 11/25/18 Launch?[place] [address] CT Scan Report Signed Patient: Celine Arreola MR#: [id number] : 1940 Acct:[id number] Age/Sex: 81 / F Date of Service: 07/15/22 Loc: ED Accession Number: [id number] ?? Procedure: CT pelvis wo con Ordering Provider: Derek Amos D.O. PROCEDURE:? CT PEL WO CON ? INDICATIONS:? low back and pelvic pain ? TECHNIQUE:? Noncontrast 3 mm axial sections acquired through the bony pelvis, with coronal and sagittal reformatting.? ? COMPARISON:? [facility], CT, CT LUMBAR SPINE WO CON, 07/15/2022, 23:59. ? FINDINGS:? Image quality:? Excellent.? ? Bones:? No acute fracture or dislocation.? There is mild facet arthropathy within the visualized lower lumbar spine. ? Soft tissues:? No intraperitoneal free fluid within the visualized pelvis.? Visualized bowel loops are normal in caliber.? There is colonic diverticulosis.? Visualized musculature appears preserved. ? ? IMPRESSION:? ? 1. No fracture or dislocation in the pelvis. ? ? ? Dictated by: Juan Bowden M.D. on 07/16/2022 at 1:01 ? ? Approved by: Juan Bowden M.D. on 07/16/2022 at 1:04 ? MDM Narrative Medical decision making narrative: Multiple etiologies of back pain considered including; Epidural abscess, cauda equina, mass occupying lesion, and other considered, however no red flag findings suggestive of a neurosurgical emergency are present. Imaging has been performed and there is no significant interval change in the findings. Patient had a significant improvement in symptoms after above-stated therapies. She has rather classic radicular symptoms that have responded appropriately, she is given extensive return precautions and encouraged to follow closely with her care team. Questions answered to her apparent satisfaction Discharge Plan Departure Patient Disposition: Home Clinical Impression: Acute right lumbar radiculopathy Instructions: DI for Low Back Pain Activity Restrictions/Additional Instructions: *You have been diagnosed with [Acute Right Lumbar Radiculopathy] *What to do: *Please continue to take your regular medications as directed. [ x] New medication prescriptions sent to your pharmacy: [[facility] ] [ ] New medication written as a paper prescription [ ] No new medications given *Please follow up with your primary care provider in 2-3 days, call for an appointment. Let them know you were seen in the Emergency Department and that we ask that you be seen in follow up. We will electronically transmit a record of today's note if your PCP is in our system *If you do not have a primary care provider please contact the [facility] Resource line at [phone]. They will ask some questions about your medical history and help get you set up with a doctor in the community. *Return to Emergency Department if you should have any new, worsening or concerning symptoms Prescriptions: New gabapentin 300 mg capsule 300 mg PO BEDTIME Qty: 14 0RF methylprednisolone [Medrol (Be)] 4 mg tablets,dose pack See Rx Instructions .ROUTE .COMPLEX Qty: 21 0RF Rx Instructions: orally per package directions No Action ibuprofen 200 mg tablet 200 mg PO Q6H PRN atorvastatin [Lipitor] 20 mg tablet 20 mg PO DAILY calcitonin (salmon) 200 unit/actuation spray,non-aerosol 1 spray intranasal (ALT) DAILY zolpidem 5 mg tablet 5 mg PO BEDTIME tramadol 50 mg tablet 50 mg PO DAILY Label Comments: TAKE ONE TABLET BY MOUTH ONE TIME DAILY NEEDED FOR PAIN levothyroxine 88 mcg tablet 88 mcg PO DAILY losartan 50 mg tablet 50 mg PO DAILY Referrals: Asuncion Cardona ARNP [Primary Care Provider] - Visit Report Forms: Patient Portal/API
--- NOTE | 2022-07-15 23:41 | DI.CT.S_ITS ---
PROCEDURE: CT PEL WO CON INDICATIONS: low back and pelvic pain TECHNIQUE: Noncontrast 3 mm axial sections acquired through the bony pelvis, with coronal and sagittal reformatting. COMPARISON: [facility], CT, CT LUMBAR SPINE WO CON, 07/15/2022, 23:59. FINDINGS: Image quality: Excellent. Bones: No acute fracture or dislocation. There is mild facet arthropathy within the visualized lower lumbar spine. Soft tissues: No intraperitoneal free fluid within the visualized pelvis. Visualized bowel loops are normal in caliber. There is colonic diverticulosis. Visualized musculature appears preserved. IMPRESSION: 1. No fracture or dislocation in the pelvis. Dictated by: Juan Bowden M.D. on 07/16/2022 at 1:01 Approved by: Juan Bowden M.D. on 07/16/2022 at 1:04
--- NOTE | 2022-07-15 23:41 | DI.CT.S_ITS ---
PROCEDURE: CT LUMBAR SPINE WO CON INDICATIONS: severe lumbar pain TECHNIQUE: Noncontrast 3 mm thick sections acquired from the T12 level to the sacrum. Sagittal and coronal reformats were constructed. For radiation dose reduction, the following was used: automated exposure control. COMPARISON: [facility], MR, MR LUMBAR SPINE WO CON, 07/04/2022, 12:52. FINDINGS: Image quality: Excellent. Bones: There is unchanged bony alignment. Multiple compression fractures are redemonstrated within the lower thoracic and lumbar spine. These include a moderate to severe superior endplate compression fracture of the T12 vertebral body with slightly increased loss of height anteriorly of greater than 75%. There is mild posterior displacement of a fracture fragment along the superior endplate with associated moderate spinal canal narrowing. Moderate superior endplate scalloping of the L2 vertebral body as well as mild superior scalloping of the L3 and L4 vertebral bodies appear similar to the recent prior MRI study. No new compression fractures. There is diffuse osteopenia. No pars defects. Multilevel degenerative disc disease redemonstrated throughout the lumbar spine. Soft tissues: No retroperitoneal masses or hematomas. Visualized aorta is normal in caliber. There is a partially visualized hiatal hernia. IMPRESSION: 1. Moderate to severe superior endplate compression fracture of the T12 vertebral body with a subacute appearance on recent MRI. There is slight increased loss of height anteriorly. Moderate spinal canal narrowing redemonstrated. 2. Additional compression deformities within the superior endplates of L2, L3, and L4 vertebral bodies appear grossly unchanged. Dictated by: Juan Bowden M.D. on 07/16/2022 at 0:52 Approved by: Juan Bowden M.D. on 07/16/2022 at 1:01
[2022-07-15] MEDS: OXYCODONE/ACETAMINOPHEN 5/325 TABLET 2 TAB PO (23:57)
[2022-07-15] MEDS: GABAPENTIN 300 MG CAPSULE PO (23:57)
[2022-07-15] MEDS: predniSONE 20 MG TABLET 40 MG PO (23:57)
[2022-07-16 00:07] LABS: Lactate (Lactic Acid) 0.9 mmol/L (0.7-2.1)
[2022-07-16] MEDS: ONDANSETRON 4 MG ODT SL (00:49)
[2022-07-16 04:08] VITALS: BP 193/96; PULSE 94; RESP 20; O2SAT 99
== END 2022-07-16 04:26 | disposition home or self-care (01) ==
PROVIDERS: Emergency Medicine; Emergency Provider Emergency Medicine; PCP Family Medicine
DX: M54.16 Radiculopathy, lumbar region (principal); R10.2 Pelvic and perineal pain; E55.9 Vitamin D deficiency, unspecified; I10 Essential (primary) hypertension; Z20.822 Contact with and (suspected) exposure to COVID-19
CPT/HCPCS: 36415; 71045; 72131; 72192; 80053; 81001; 82306; 83605; 83690; 84145; 84439; 84443; 85025; 87086; 87635; 99283; 99284; C9803

== ENCOUNTER 2022-07-28 14:29 | Emergency (ER) | payer MEDICARE, OTHER, SELFPAY ==
[2020-10-03 13:05] VITALS: BMI 30.2
[2022-07-28 14:34] VITALS: BP 156/92; PULSE 84; RESP 22; TEMP 36.9; O2SAT 97
--- NOTE | 2022-07-28 14:36 | DI.RAD.S_ITS ---
PROCEDURE: XR SHOULDER LT MIN 2V INDICATIONS: trauma TECHNIQUE: 3 views of the shoulder were acquired. COMPARISON: [facility], CR, XR SHOULDER RT MIN 2V, 06/24/2022, 14:14. FINDINGS: Bones: No fractures or dislocations. [id number] osteoarthritic changes are noted in acromioclavicular joint and glenohumeral joint. No suspicious bony lesions. Visualized ribs appear intact. Soft tissues: No suspicious soft tissue calcifications. IMPRESSION: No acute left shoulder fracture or dislocation. 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 Dictated by: Vahe Matthews M.D. on 07/28/2022 at 15:04 Approved by: Vahe Matthews M.D. on 07/28/2022 at 15:05
--- NOTE | 2022-07-28 14:36 | DI.RAD.S_ITS ---
PROCEDURE: XR CHEST 2V INDICATIONS: trauma TECHNIQUE: 2 views of the chest were acquired. COMPARISON: [facility], CR, XR CHEST 1V, 07/15/2022, 17:12. FINDINGS: Surgical changes and devices: None. Lungs and pleura: Lungs are clear. No pleural effusions or pneumothorax. Mediastinum: Mediastinal contours are normal. Heart size is normal. Bones and chest wall: Healing right proximal humeral fracture is noted with callus formation adjacent to fracture site. Soft tissues appear unremarkable. IMPRESSION: No acute cardiopulmonary pathology. Healing right proximal humeral shaft fracture. Dictated by: Vahe Matthews M.D. on 07/28/2022 at 15:03 Approved by: Vahe Matthews M.D. on 07/28/2022 at 15:04
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
[2022-07-28] MEDS: OXYCODONE/ACETAMINOPHEN 5/325 TABLET 1 TAB PO (19:34)
[2022-07-28 19:40] VITALS: BP 142/74; PULSE 78; RESP 18; O2SAT 99
[2022-07-28 19:41] VITALS: BP 150/80; PULSE 74; RESP 16; TEMP 35.9; O2SAT 98
== END 2022-07-28 19:42 | disposition home or self-care (01) ==
PROVIDERS: Emergency Provider Emergency Medicine; PCP Family Medicine
DX: S20.212A Contusion of left front wall of thorax, initial encounter (principal); M25.511 Pain in right shoulder; R07.89 Other chest pain; V43.62XA Car passenger injured in collision with other type car in traffic accident, initial encounter
CPT/HCPCS: 71046; 73030; 93005; 93010; 99283; 99284

== ENCOUNTER → 2022-08-25 13:01 | Outpatient (CLI) | payer MEDICARE, OTHER, SELFPAY ==
[2020-10-03 13:05] VITALS: BMI 30.2
[2022-08-25 15:49] LABS: Alanine Aminotransferase 23 IU/L (<35); Albumin 4.1 g/dL (3.5-5.0); Albumin Globulin Ratio 1.3 (1.0-2.8); Alkaline Phosphatase 83 U/L (38-126); Aspartate Aminotransferase 28 IU/L (14-36); BUN Creatinine Ratio 17.4 (6-22); Bilirubin Total 0.4 mg/dL (0.2-1.3); Blood Urea Nitrogen 15 mg/dL (7-17); Calcium 9.2 mg/dL (8.4-10.2); Carbon Dioxide 27 mmol/L (22-32); Chloride 95 mmol/L (98-107); Estimated Glomerular Filt Rate > 60 mL/min (>60); Globulin 3.1 g/dL (1.7-4.1); Glucose 89 mg/dL (80-110); HEMOLYSIS < 15 (0-50); Potassium 4.3 mmol/L (3.4-5.1); Sodium 132 mmol/L (137-145); Total Protein 7.2 g/dL (6.3-8.2)
== END ==
PROVIDERS: Family Provider Family Medicine; PCP Family Medicine; Referring Provider Family Medicine; Visit Provider Family Medicine
DX: I10 Essential (primary) hypertension (principal); M48.56XD Collapsed vertebra, not elsewhere classified, lumbar region, subsequent encounter for fracture with routine healing; M80.88XD Other osteoporosis with current pathological fracture, vertebra(e), subsequent encounter for fracture with routine healing; M48.54XD Collapsed vertebra, not elsewhere classified, thoracic region, subsequent encounter for fracture with routine healing
CPT/HCPCS: 36415; 80053

== ENCOUNTER → 2022-11-23 09:53 | Outpatient (CLI) | payer MEDICARE, OTHER, SELFPAY ==
[2020-10-03 13:05] VITALS: BMI 30.2
--- NOTE | 2022-11-23 09:55 | DI.RAD.S_ITS ---
PROCEDURE: XR THORACIC SPINE 3V INDICATIONS: T-12 FRACTURE TECHNIQUE: 2 views of the thoracic spine were acquired. COMPARISON: [facility], CT, CT CHEST WO CON, 01/13/2020, 11:29. [facility], CR, THORACIC SPINE 3 VIEWS, 09/24/2011, 11:19. [facility], CR, XR LUMBAR SPINE 2-3V, 11/23/2022, 10:22. [facility], CT, CT LUMBAR SPINE WO CON, 07/15/2022, 23:59. FINDINGS: Bones: Fractures seen of the T7, T12, L1, and L2 levels. A stable Schmorl's node can be seen at the superior endplate of L4. The T12 fracture appears slightly progressed compared to the 07/07/2022 CT examination, now with 80-90% loss of height centrally. The other fractures appear similar to prior recent imaging. Soft tissues: No paravertebral stripe thickening. The cardiac contours are within normal limits. The aorta demonstrates calcification and tortuosity. IMPRESSION: Progression of the known T12 fracture. Additional fractures are seen at T7, L2, and L3, which appears similar to prior recent imaging. Dictated by: Haris Valentin M.D. on 11/23/2022 at 10:06 Approved by: Haris Valentin M.D. on 11/23/2022 at 10:13
--- NOTE | 2022-11-23 09:55 | DI.RAD.S_ITS ---
PROCEDURE: XR LUMBAR SPINE 2-3V INDICATIONS: follow up fxs TECHNIQUE: 3 views of the lumbar spine were acquired. COMPARISON: [facility], CT, CT LUMBAR SPINE WO CON, 07/15/2022, 23:59. [facility], CR, XR THORACIC SPINE 3V, 11/23/2022, 10:22. [facility], CR, XR LUMBAR SPINE 2-3V, 06/19/2022, 16:52. [facility], CR, XR LUMBAR SPINE MIN 4V, 11/25/2020, 12:32. FINDINGS: Bones: 5 [id number] vertebrae are present. There is normal bony alignment. T12 compression fracture is stable to slightly worsened compared to CT 07/15/2022. T2 compression fracture is stable. Multilevel DDD. No suspicious bony lesions. Soft tissues: Overlying bowel gas pattern is normal. No suspicious soft tissue calcifications. IMPRESSION: T12 compression fracture is stable to slightly worsened compared to 07/15/2022. L2 compression fracture is stable. Dictated by: Migue Lacey M.D. on 11/23/2022 at 19:30 Approved by: Migue Lacey M.D. on 11/23/2022 at 19:34
== END ==
PROVIDERS: Family Provider Family Medicine; PCP Family Medicine; Referring Provider Physical Medicine & Rehabilitation; Visit Provider Physical Medicine & Rehabilitation
DX: S22.080A Wedge compression fracture of T11-T12 vertebra, initial encounter for closed fracture (principal); S32.020G Wedge compression fracture of second lumbar vertebra, subsequent encounter for fracture with delayed healing; S32.030S Wedge compression fracture of third lumbar vertebra, sequela; S32.040S Wedge compression fracture of fourth lumbar vertebra, sequela; M51.36 Other intervertebral disc degeneration, lumbar region
CPT/HCPCS: 72072; 72100

== ENCOUNTER 2022-12-09 13:45 | Outpatient (RCR) | payer MEDICARE, OTHER, SELFPAY ==
[2020-10-03 13:05] VITALS: BMI 30.2
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
--- NOTE | 2022-09-29 15:04 | PT-OP ANOTE ---
Called pt regarding missed 2:30pm appointment today on cell [phone] - mailbox full so unable to leave message. Called home [phone] and left voicemail regarding missed appt, can call front desk worker to reschedule and appts available tomorrow 09/30 w/ Gila or Elizabeth, or can schedule for next week if still out of town. Advised next scheduled appt is 10/20/22 at 1:00pm.
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
--- NOTE | 2022-11-11 16:48 | PT.OPPOC ---
Physical, Occupational & Speech Therapy At [facility] Current Diagnoses Abnormal posture (11/11/22) Weakness (11/11/22) Unspecified fracture of upper end of right humerus, initial encounter for closed fracture (11/11/22) Visit Care Team Role Provider Type MUNIRA Cotton Family Provider Physician Primary Care Provider Specialty: Nursing Address: [address] [place] [address] [place], [address] Email: Terell Marte MD Attending Provider Physician Referring Provider Specialty: Orthopedic Surgery Address: [address] [place] [address], [place], [address] Email: [email or web address] Plan Of Care PT-OP-T Assessment and Plan Start: 08/25/22 18:22 Freq: Status: Active Protocol: Document 11/11/22 12:58 [facility] (Rec: 11/11/22 13:47 [facility] [id number]) Physical Therapy Assessment Goals strength Short Term Goal (STG) Pt will be indep w/HEP for ROM and strength STG Duration achieved-advancing as able Longterm Goal (LTG) Pt will have at least 4/5 RUE strength in allp lanes to allow pt to do typical home activities. 10/20-slowly progressing 11/11-slowly progressing LTG Duration 02/03 ROM Short Term Goal (STG) Pt will inc AROM into flex and abd by at least 15 deg 10/20-improved but not by 15 deg STG Duration achieved 11/11 Treasury Analyst Goal (LTG) Pt will have at least 130deg AROM abd & flex and 50 deg ext and IR behind back to L1 and ER to 60 deg at side 10/20-ext much improved and met but others limited 11/11-ext met and ER met, all others slowly progressing LTG Duration 02/03 quick dash Impairment 61.36 Short Term Goal (STG) Pt will imrpove quick dash score to no greater than 45 to show improved functional ability. 10/20-11/11- STG Duration 12/16 Longterm Goal (LTG) Pt will imrpove quick dash score to no greater than 25 to show improved functional ability. LTG Duration 02/03/23 Assessment Summary Assessment Pt cont to make slow progress w/PT at this time likely d/t the poor healing the orthopedic has reported to her d/t her delayed ortho care. She is showing more functional range and is reporting less pain overall. Cont PT to adavnace mobility Physical Therapy Plan Frequency and Duration Frequency of Treatment 1-2x/Week Duration of treatment (weeks) 12 Plan of Care Start Date 11/11/22 Plan of Care End Date 02/03/23 Therapeutic Interventions Therapeutic Interventions Aquatic Therapy,Gait Training, Home Exercise Program,Joint Mobilizations,Manual Therapy, Neuromuscular Re-education, Orthotic/Prosthetic Management ,Patient/Caregiver Education, Self-Care/Home Management,Soft Tissue Mobilization,Taping, Therapeutic Activities, Therapeutic Exercises Modalities Cold Pack/Ice Massage,Electric Stimulation,Hot Packs, Infrared Therapy,Ultrasound Next Visit Focus/Plan Next Note Type Treatment Note Next Visit Plan strength exercises, and work on ROM, gentle manual STM Plan of Care Dates Plan of Care Start Date 11/11/22 Plan of Care End Date 02/03/23 Electronically Signed by: Gila Anderson, PT 11/11/22 1590 If you are in agreement with this Plan of Care, please return a signed and dated copy. I have reviewed this Plan of Care and certify that the skilled therapy services above are required to meet the patient?s needs. Physician Signature Date Printed Name and Credentials Clinical Instructor Signature Printed Name and Credentials
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
--- NOTE | 2022-12-14 14:21 | PT-OP ANOTE ---
Pt had crossed out her appt on her handout as she thought it was cancelled when she worked with frontend engineer to cancel appts for when she was going to be away for a baby shower. Pt plans to call back when she knows when she is back in town.
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
== END 2023-02-09 15:04 | disposition home or self-care (01) ==
LOC: PHYS 13:45
PROVIDERS: Family Provider Family Medicine; PCP Family Medicine; Referring Provider Orthopaedic Surgery; Visit Provider Orthopaedic Surgery
DX: S42.201A Unspecified fracture of upper end of right humerus, initial encounter for closed fracture (principal); R53.1 Weakness; R29.3 Abnormal posture
CPT/HCPCS: 97110; 97140; 97162

== ENCOUNTER → 2023-02-04 14:29 | Outpatient (CLI) | payer MEDICARE, OTHER, SELFPAY ==
[2020-10-03 13:05] VITALS: BMI 30.2
[2023-02-04 16:01] LABS: Alanine Aminotransferase 15 IU/L (<35); Albumin 4.1 g/dL (3.5-5.0); Albumin Globulin Ratio 1.3 (1.0-2.8); Alkaline Phosphatase 49 U/L (38-126); Aspartate Aminotransferase 22 IU/L (14-36); BUN Creatinine Ratio 15.7 (6-22); Bilirubin Total 0.5 mg/dL (0.2-1.3); Blood Urea Nitrogen 13 mg/dL (7-17); Calcium 8.9 mg/dL (8.4-10.2); Carbon Dioxide 27 mmol/L (22-32); Chloride 98 mmol/L (98-107); Cholesterol 214 mg/dL (140-199); Estimated Glomerular Filt Rate > 60 mL/min (>60); Globulin 3.1 g/dL (1.7-4.1); Glucose 89 mg/dL (80-110); HDL Cholesterol 93 mg/dL (40-60); HEMOLYSIS < 15 (0-50); LDL Cholesterol Calculated 108 mg/dL (<100); Potassium 4.1 mmol/L (3.4-5.1); Sodium 133 mmol/L (137-145); Total Protein 7.2 g/dL (6.3-8.2); Triglycerides 64 mg/dL (35-150)
[2023-02-04 16:30] LABS: Vitamin D 25 Hydroxy (D3) 49.4 ng/mL (30.0-100.0)
== END ==
PROVIDERS: Family Provider Family Medicine; PCP Nurse Practitioner Family; Referring Provider Nurse Practitioner Family; Visit Provider Nurse Practitioner Family
DX: E03.9 Hypothyroidism, unspecified (principal); M81.0 Age-related osteoporosis without current pathological fracture; E78.5 Hyperlipidemia, unspecified
CPT/HCPCS: 36415; 80053; 80061; 82306; 84443

== ENCOUNTER → 2023-02-10 | Outpatient (CLI) | payer MEDICARE, OTHER, SELFPAY ==
[2020-10-03 13:05] VITALS: BMI 30.2
--- NOTE | 2023-02-10 11:36 | DI.RAD.S_ITS ---
Bone Density Report Name: HASEEB PINEDA Age: 82 Sex: Female Ethnicity: White Date of : 1940 Indication: osteopenia; monitoring treatment; prior fracture; Referring Provider: BLADIMIR HATFIELD Study: Bone densitometry was performed. Exam Date: February 10, 2023 Accession number: [id number] Bone Density: Region BMD T-score Z-score Classification AP Spine(L1, L3, L4) 0.977 -0.7 2.1 Normal Femoral Neck (Left) 0.612 -2.1 0.3 Osteopenia Total Hip (Left) 0.754 -1.5 0.6 Osteopenia Femoral Neck (Right) 0.592 -2.3 0.1 Osteopenia Total Hip (Right) 0.752 -1.6 0.6 Osteopenia Total Hip Mean 0.753 -1.6 0.6 Osteopenia World Health Organization criteria for BMD impression classify patients as: Normal (T-score at or above -1.0), Osteopenia (T-score between -1.0 and -2.5), or Osteoporosis (T-score at or below -2.5). 10-year Fracture Risk: FRAX not reported because: Prior hip or vertebral fracture Treated for osteoporosis Previous Exams: -- Region Exam Age BMD T-score BMD Change BMD Change Date g/cm2 vs Baseline vs Previous -- AP Spine (L1,L3-L4) 02/10/2023 82 0.977 -0.7 0.048 (5.1%)# 0.048 (5.1%)# 04/01/2020 79 0.929 -1.1 Total Hip(Left) 02/10/2023 82 0.754 -1.5 0.030 (4.1%)# 0.030 (4.1%)# 04/01/2020 79 0.724 -1.8 Total Hip(Right) 02/10/2023 82 0.752 -1.6 0.019 (2.7%)# 0.019 (2.7%)# 04/01/2020 79 0.733 -1.7 -- *Denotes significance at 95% confidence level, LSC for AP Spine = 0.022 g/cm2, LSC for Total Hip = 0.027 g/cm2 # Denotes dissimilar scan types or analysis methods Impression: The patient has low bone mass, based on the Right Femoral Neck T-score. The patient has risk factors, including: previous fracture. No significant bone loss was observed. Discussion: PATIENT UNDER TREATMENT WITH NO SIGNIFICANT BMD LOSS SINCE LAST EXAM. In an untreated patient, BMD typically declines with age. A lack of decline or gain is usually a sign that treatment is efficacious and fracture risk is reduced. It is important to ask patients whether they are taking their medications and to encourage continued and appropriate compliance with their osteoporosis therapies to reduce fracture risk. It is also important to review their risk factors and encourage appropriate calcium and vitamin D intakes, exercise, fall prevention and other lifestyle measures. Follow-Up: Consider a repeat BMD and Vertebral Fracture Assessment (VFA) exam in 2 years or sooner if medically necessary, to reassess this patient's status. Reported by: JULISSA BRUNO M.D. on 02/10/2023 12:05:00 PM.
== END ==
PROVIDERS: Family Provider Family Medicine; PCP Nurse Practitioner Family; Referring Provider Nurse Practitioner Family; Visit Provider Nurse Practitioner Family
DX: M81.0 Age-related osteoporosis without current pathological fracture (principal); Z78.0 Asymptomatic menopausal state; Z79.83 Long term (current) use of bisphosphonates
CPT/HCPCS: 77080

== ENCOUNTER → 2023-02-16 14:58 | Outpatient (CLI) | payer MEDICARE, OTHER, SELFPAY ==
[2020-10-03 13:05] VITALS: BMI 30.2
--- NOTE | 2023-02-16 14:59 | DI.RAD.S_ITS ---
PROCEDURE: XR THORACIC SPINE 3V INDICATIONS: Follow-up fractures TECHNIQUE: 3 views of the thoracic spine were acquired. COMPARISON: [facility], CR, XR THORACIC SPINE 3V, 11/23/2022, 10:22. FINDINGS: Bones: Severe compression fractures of T7 and T12, moderate compression fracture of L2. Compared to the last exam, there is no significant change. 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 No suspicious bony lesions. 12 pairs of ribs are noted, and appear intact where visualized. Soft tissues: No paravertebral stripe thickening. IMPRESSION: 1. Stable compression fracture of T7, T12 and L2. Dictated by: Yo Dumont M.D. on 02/16/2023 at 20:45 Approved by: oY Dumont M.D. on 02/17/2023 at 8:26
--- NOTE | 2023-02-16 14:59 | DI.RAD.S_ITS ---
PROCEDURE: XR LUMBAR SPINE MIN 4V INDICATIONS: Follow-up fractures TECHNIQUE: 5 views of the lumbar spine were acquired, including bilateral oblique views. COMPARISON: [facility], CR, XR LUMBAR SPINE 2-3V, 11/23/2022, 10:22. CT, CT LUMBAR SPINE WO CON, 07/15/2022, 23:59. [facility], CR, XR LUMBAR SPINE MIN 4V, 11/25/2020, 12:32. FINDINGS: Bones: 5 nonrib-bearing vertebrae are present. Mild scoliosis. There is grade 1 retrolisthesis of L3 on L4. Severe compression fracture of T12 and moderate compression fracture of L2 appear unchanged.. No suspicious bony lesions. Degenerative disc disease, fnzosbsr-dv-[id number] at L3-L4, wluv-dt-lsflnhir at other levels. Severe facet arthropathy at L4-L5 and L5-S1. Soft tissues: Overlying bowel gas pattern is normal. Vascular calcifications consistent with atherosclerosis. Oblique images: No pars defects. IMPRESSION: 1. Severe compression fracture of T12 and moderate compression fracture of L2 are stable. 2. Degenerative disc and facet disease in lumbar spine. Dictated by: Yo Dumont M.D. on 02/16/2023 at 18:24 Approved by: Yo Dumont M.D. on 02/16/2023 at 18:27
== END ==
PROVIDERS: Family Provider Family Medicine; PCP Nurse Practitioner Family; Referring Provider Physical Medicine & Rehabilitation; Visit Provider Physical Medicine & Rehabilitation
DX: S22.069A Unspecified fracture of T7-T8 vertebra, initial encounter for closed fracture (principal); S22.080A Wedge compression fracture of T11-T12 vertebra, initial encounter for closed fracture; S32.029A Unspecified fracture of second lumbar vertebra, initial encounter for closed fracture; S32.030A Wedge compression fracture of third lumbar vertebra, initial encounter for closed fracture; S32.040A Wedge compression fracture of fourth lumbar vertebra, initial encounter for closed fracture; M51.36 Other intervertebral disc degeneration, lumbar region; M47.816 Spondylosis without myelopathy or radiculopathy, lumbar region; M47.817 Spondylosis without myelopathy or radiculopathy, lumbosacral region
CPT/HCPCS: 72072; 72110

== ENCOUNTER → 2023-11-23 13:00 | Outpatient (CLI) | payer MEDICARE, OTHER, SELFPAY ==
[2020-10-03 13:05] VITALS: BMI 30.2
--- NOTE | 2023-11-23 13:07 | DI.RAD.S_ITS ---
PROCEDURE: XR CHEST 2V INDICATIONS: DYSPNIA TECHNIQUE: 2 views of the chest were acquired. COMPARISON: [facility], CR, XR CHEST 2V, 07/28/2022, 14:47. FINDINGS: Surgical changes and devices: None. Lungs and pleura: Lungs are clear. No pleural effusions or pneumothorax. Mediastinum: Mediastinal contours are normal. Heart size is normal. Bones and chest wall: No suspicious bony abnormalities. Subacute to chronic appearing right proximal humeral fracture is seen. Soft tissues appear unremarkable. IMPRESSION: No acute cardiopulmonary pathology. Dictated by: Vahe Matthews M.D. on 11/23/2023 at 14:54 Approved by: Vahe Matthews M.D. on 11/23/2023 at 15:05
[2023-11-23 14:18] LABS: Alanine Aminotransferase 14 IU/L (<35); Albumin Globulin Ratio 1.2 (1.0-2.8); Alkaline Phosphatase 46 U/L (38-126); Aspartate Aminotransferase 21 IU/L (14-36); BUN Creatinine Ratio 19.3 (6-22); Bilirubin Total 0.7 mg/dL (0.2-1.3); Blood Urea Nitrogen 16 mg/dL (7-17); Calcium 9.8 mg/dL (8.4-10.2); Carbon Dioxide 28 mmol/L (22-32); Chloride 103 mmol/L (98-107); Estimated Glomerular Filt Rate > 60 mL/min (>60); Globulin 3.4 g/dL (1.7-4.1); Glucose 90 mg/dL (80-110); HEMOLYSIS < 15 (0-50); Potassium 4.1 mmol/L (3.4-5.1); Sodium 135 mmol/L (137-145); Total Protein 7.4 g/dL (6.3-8.2)
[2023-11-23 14:36] LABS: Appearance Urine UA CLEAR; Bilirubin Urine UA NEGATIVE (NEGATIVE); Color Urine UA YELLOW; Glucose Urine UA NEGATIVE (Negative); Ketones Urine UA NEGATIVE (NEGATIVE); Leukocyte Esterase Urine UA 2+ (NEGATIVE); Nitrite Urine UA NEGATIVE (Negative); Occult Blood Urine UA TRACE-INTACT (Negative); Protein Urine UA NEGATIVE (Negative); Urobilinogen Urine UA 0.2 E.U./dL (0.2)
[2023-11-23 14:47] LABS: pH Urine UA 5.5 (4.5-8.0)
[2023-11-23 14:48] LABS: TSH w/ Reflex to FT4 1.41 uIU/mL (0.47-4.68)
[2023-11-23 14:48] LABS: Bacteria Urine Many (>30); Culture Indicated Urine Specimen Cultured; RBC Urine 0-1/HPF (0-5/HPF); Squamous Epithelial Cell Urine 0-1 /HPF (0-5/HPF); Urine Volume 10mL (spun); WBC Urine 10-30/HPF (0-5/HPF)
[2023-11-23 17:35] LABS: Vitamin D 25 Hydroxy (D3) 68.7 ng/mL (30.0-100.0)
[2023-11-25 11:39] LABS: Parathyroid Hormone Int 30 pg/mL (15-65)
== END ==
PROVIDERS: PCP Nurse Practitioner Family; Referring Provider Nurse Practitioner Family; Visit Provider Nurse Practitioner Family
DX: R06.00 Dyspnea, unspecified (principal); M81.0 Age-related osteoporosis without current pathological fracture; R53.81 Other malaise; E03.9 Hypothyroidism, unspecified; E78.5 Hyperlipidemia, unspecified
CPT/HCPCS: 36415; 71046; 80053; 81001; 82306; 83970; 84443; 87077; 87086; 87186

== ENCOUNTER → 2023-11-24 11:13 | Outpatient (CLI) | payer MEDICARE, OTHER, SELFPAY ==
[2020-10-03 13:05] VITALS: BMI 30.2
[2023-11-24 12:34] LABS: Cholesterol 168 mg/dL (140-199); HDL Cholesterol 72 mg/dL (40-60); LDL Cholesterol Calculated 86 mg/dL (<100); Triglycerides 52 mg/dL (35-150)
== END ==
LOC: LAB 11:15
PROVIDERS: PCP Nurse Practitioner Family; Referring Provider Nurse Practitioner Family; Visit Provider Nurse Practitioner Family
DX: E78.5 Hyperlipidemia, unspecified (principal); M81.0 Age-related osteoporosis without current pathological fracture; E03.9 Hypothyroidism, unspecified; I10 Essential (primary) hypertension
CPT/HCPCS: 36415; 80061

== ENCOUNTER → 2023-12-07 11:03 | Outpatient (CLI) | payer MEDICARE, OTHER, SELFPAY ==
[2020-10-03 13:05] VITALS: BMI 30.2
[2023-12-07 12:33] LABS: Add Manual Diff / Slide Review NO; Basophils Absolute Auto 0 /uL (0-100); Basophils Percent Auto 0.6 % (0-2); Eosinophils Absolute Auto 400 /uL (0-450); Eosinophils Percent Auto 7.5 % (2-4); Hematocrit 39.8 % (36-46); Hemoglobin 13.4 g/dL (12.0-16.0); Lymphocytes Absolute Auto 1300 /uL (1100-4500); Lymphocytes Percent Auto 23.6 % (25-40); Mean Corpuscular HGB Conc 33.8 % (30-36); Mean Corpuscular Hemoglobin 32.8 PG (26-34); Mean Corpuscular Volume 97.1 fL (80-100); Monocytes Absolute Auto 700 /uL (0-900); Monocytes Percent Auto 12.2 % (3-14); Neutrophils Absolute Auto 3100 /uL (1500-7000); Neutrophils Percent Auto 56.1 % (50-75); Platelet Count 237 X10^3/uL (150-400); Red Cell Distribution Width 14.3 % (11.6-14.8); White Blood Cell Count 5.5 X10^3/uL (4.5-11.0)
[2023-12-07 12:53] LABS: Alanine Aminotransferase 14 IU/L (<35); Albumin 4.2 g/dL (3.5-5.0); Albumin Globulin Ratio 1.2 (1.0-2.8); Alkaline Phosphatase 50 U/L (38-126); Aspartate Aminotransferase 23 IU/L (14-36); Bilirubin Total 0.7 mg/dL (0.2-1.3); Blood Urea Nitrogen 10 mg/dL (7-17); Calcium 9.1 mg/dL (8.4-10.2); Carbon Dioxide 27 mmol/L (22-32); Chloride 98 mmol/L (98-107); Estimated Glomerular Filt Rate > 60 mL/min (>60); Globulin 3.4 g/dL (1.7-4.1); Glucose 92 mg/dL (80-110); HEMOLYSIS < 15 (0-50); Potassium 4.2 mmol/L (3.4-5.1); Sodium 133 mmol/L (137-145); Total Protein 7.6 g/dL (6.3-8.2)
[2023-12-07 13:06] LABS: Appearance Urine UA CLEAR; Bilirubin Urine UA NEGATIVE (NEGATIVE); Color Urine UA YELLOW; Glucose Urine UA NEGATIVE (Negative); Ketones Urine UA NEGATIVE (NEGATIVE); Leukocyte Esterase Urine UA 1+ (NEGATIVE); Nitrite Urine UA NEGATIVE (Negative); Occult Blood Urine UA NEGATIVE (Negative); Protein Urine UA NEGATIVE (Negative); Specific Gravity Urine UA <=1.005 (1.000-1.035); Urobilinogen Urine UA 0.2 E.U./dL (0.2)
[2023-12-07 13:14] LABS: pH Urine UA 6.5 (4.5-8.0)
[2023-12-07 13:16] LABS: Free T4, Direct Thyroxine 1.65 ng/dL (0.78-2.19)
[2023-12-07 13:30] LABS: Thyroid Stimulating Hormone 1.18 uIU/mL (0.47-4.68)
[2023-12-07 13:37] LABS: Bacteria Urine Occasional (0-1); Culture Indicated Urine Specimen Cultured; RBC Urine 0-1/HPF (0-5/HPF); Squamous Epithelial Cell Urine 0-1 /HPF (0-5/HPF); Urine Volume 10mL (spun); WBC Urine 0-1/HPF (0-5/HPF)
[2023-12-07 15:46] LABS: Vitamin D 25 Hydroxy (D3) 70.9 ng/mL (30.0-100.0)
[2023-12-08 02:43] LABS: Cholesterol HDL Ratio 2.1 ratio (0.0-4.4); Cholesterol,Total 180 mg/dL (100-199); HDL Cholesterol 85 mg/dL (>39); LDL Cholesterol Cal 84 mg/dL (0-99); Triglycerides 58 mg/dL (0-149); VLDL Cholesterol Cal 11 mg/dL (5-40)
[2023-12-08 08:36] LABS: Parathyroid Hormone Int 35 pg/mL (15-65)
== END ==
PROVIDERS: PCP Nurse Practitioner Family; Referring Provider Nurse Practitioner Family; Visit Provider Nurse Practitioner Family
DX: R53.81 Other malaise (principal); M81.0 Age-related osteoporosis without current pathological fracture; E03.9 Hypothyroidism, unspecified; E78.5 Hyperlipidemia, unspecified; I10 Essential (primary) hypertension; N39.0 Urinary tract infection, site not specified
CPT/HCPCS: 36415; 80053; 80061; 81001; 82306; 83970; 84439; 84443; 85025; 87086

== ENCOUNTER → 2024-04-13 11:37 | Outpatient (CLI) | payer MEDICARE, OTHER, SELFPAY ==
[2020-10-03 13:05] VITALS: BMI 30.2
--- NOTE | 2024-04-13 11:50 | DI.RAD.S_ITS ---
PROCEDURE: XR CHEST 2V INDICATIONS: COUGH TECHNIQUE: 2 views of the chest were acquired. COMPARISON: [facility], CR, XR CHEST 2V, 11/23/2023, 13:11. FINDINGS: Surgical changes and devices: None. Lungs and pleura: Lungs are clear. No pleural effusions or pneumothorax. Mediastinum: Mediastinal contours are normal. Heart size is normal. Moderate-sized hiatal hernia. Bones and chest wall: No suspicious bony abnormalities. Chronic appearing posttraumatic humeral head and neck deformity on the right. There are severe compression fractures of T7 and T12. Moderate endplate scalloping seen of L2 and L3. IMPRESSION: No acute cardiopulmonary abnormality is seen. Chronic appearing remote fractures. Moderate size hiatal hernia. Dictated by: Charlette Campos M.D. on 04/13/2024 at 21:12 Approved by: Charlette Campos M.D. on 04/13/2024 at 21:15
[2024-04-13 12:32] LABS: D Dimer 838 ng/ml (<500)
[2024-04-13 12:37] LABS: Alanine Aminotransferase 13 IU/L (<35); Albumin 4.2 g/dL (3.5-5.0); Albumin Globulin Ratio 1.4 (1.0-2.8); Alkaline Phosphatase 50 U/L (38-126); Aspartate Aminotransferase 21 IU/L (14-36); Bilirubin Total 0.6 mg/dL (0.2-1.3); Blood Urea Nitrogen 20 mg/dL (7-17); Calcium 9.4 mg/dL (8.4-10.2); Carbon Dioxide 28 mmol/L (22-32); Chloride 104 mmol/L (98-107); Estimated Glomerular Filt Rate > 60 mL/min (>60); Globulin 2.9 g/dL (1.7-4.1); Glucose 88 mg/dL (80-110); HEMOLYSIS < 15 (0-50); Potassium 4.5 mmol/L (3.4-5.1); Sodium 134 mmol/L (137-145); Total Protein 7.1 g/dL (6.3-8.2)
[2024-04-13 12:49] LABS: Troponin I < 0.012 ng/mL (0.01-0.034)
== END ==
LOC: LAB 11:40 → RAD 11:49
PROVIDERS: PCP Nurse Practitioner Family; Referring Provider Nurse Practitioner Family; Visit Provider Nurse Practitioner Family
DX: R07.9 Chest pain, unspecified (principal); K44.9 Diaphragmatic hernia without obstruction or gangrene; M48.54XA Collapsed vertebra, not elsewhere classified, thoracic region, initial encounter for fracture; Z87.81 Personal history of (healed) traumatic fracture
CPT/HCPCS: 36415; 71046; 80053; 84484; 85379

== ENCOUNTER 2024-04-16 19:07 | Emergency (ER) | payer MEDICARE, OTHER, SELFPAY ==
[2020-10-03 13:05] VITALS: BMI 30.2
[2024-04-16] VITALS (11 sets, daily range): BP systolic 171–191; BP diastolic 81–91; PULSE 67–90; RESP 16–38; TEMP 36.2–36.8; O2SAT 95–97; BMI 30.2
--- NOTE | 2024-04-16 19:25 | DI.RAD.S_ITS ---
PROCEDURE: XR CHEST 1V INDICATIONS: chest pain TECHNIQUE: One view of the chest was acquired. COMPARISON: [facility], CR, XR CHEST 2V, 04/13/2024, 11:54. [facility], CR, XR CHEST 2V, 11/23/2023, 13:11. FINDINGS: Surgical changes and devices: None. Lungs and pleura: Lung volumes are low. No dense consolidation or pleural effusion. Mediastinum: Heart size is at the upper limit of normal. Mediastinal contours are unchanged Bones and chest wall: Degenerative findings. Right humeral deformity partially seen. IMPRESSION: Limited single view radiograph with low lung volumes. No acute abnormality. Dictated by: Adal Torres M.D. on 04/16/2024 at 20:01 Approved by: Adal Torres M.D. on 04/16/2024 at 20:02
--- NOTE | 2024-04-16 19:25 | EKG_ITS ---
[address] [address] Test Date: 2024-04-16 Pat Name: Celine Arreola Department: Room: Gender: Female Supervisory Clerk: VINNY : 1940 Requested By: Order Number: [id number] Reading MD: Deny Mccullough Measurements Intervals [place] Rate: 80 P: 22 [place]: 182 QRS: -44 QRSD: 92 T: 15 QT: 350 QTc: 403 Interpretive Statements Normal sinus rhythm Left axis deviation Minimal voltage criteria for LVH, may be normal variant ( [place] product ) Electronically Signed On 04-18-2024 18:25:18 PDT by Deny Mccullough
--- NOTE | 2024-04-16 19:44 | ED_ITS ---
HPI - Chest Pain General Chief Complaint: Chest Pain Stated Complaint: chest pain, sob Time Seen by Provider: 04/16/24 19:44 Source: patient Mode of arrival: Wheelchair History of Present Illness HPI narrative: 83-year-old female with no known history of coronary artery disease, having shortness of breath and chest discomfort for a number of days, recently lost her son who of a heart attack last week, here with daughter, believes she might be having a grief reaction, was also seen for chest discomfort and shortness of breath in clinic on and had labs and chest x-ray and was sent home. She has ongoing central chest discomfort, not worse with deep breathing or movements, occasional cough, no fevers or chills. No unilateral leg pain or swelling. No history of blood clots to legs or lungs known. Related Data Home Medications Medication Instructions Recorded Confirmed ibuprofen 200 mg tablet 200 mg PO Q6H PRN 10/16/20 02/18/23 atorvastatin 20 mg tablet (Lipitor) 20 mg PO DAILY 11/25/20 02/18/23 levothyroxine 88 mcg tablet 88 mcg PO DAILY 07/01/22 02/18/23 losartan 50 mg tablet 50 mg PO DAILY 07/01/22 02/18/23 zolpidem 5 mg tablet 5 mg PO BEDTIME 07/01/22 02/18/23 albuterol sulfate 90 mcg/actuation 2 puff inhalation .PRN 09/16/22 02/18/23 aerosol inhaler cyclobenzaprine 10 mg tablet 10 mg PO BEDTIME 09/16/22 02/18/23 omeprazole 20 mg capsule,delayed 20 mg PO DAILY 09/16/22 02/18/23 release oxycodone-acetaminophen 5 mg-325 1 tab PO TID PRN pain 09/16/22 02/18/23 mg tablet pravastatin 20 mg tablet 20 mg PO BEDTIME 09/16/22 02/18/23 Previous Rx's Medication Instructions Recorded calcitonin (salmon) 200 1 spray intranasal (ALT) DAILY 12/24/22 unit/actuation nasal spray #3.7 mL tramadol 50 mg tablet 50 mg PO BID PRN pain #42 tabs 02/18/23 Allergies Allergy/AdvReac Type Severity Reaction Status Date / Time No Known Drug Allergies Allergy Verified 04/16/24 19:18 Review of Systems Review of Systems Narrative: Per HPI Patient History Medical History Fracture of L2 vertebra Greater trochanteric bursitis of right hip Osteoporosis Sciatica Shoulder fracture, right T12 compression fracture T7 vertebral fracture Social History household members: spouse and children Smoking Status: Never smoker Smoking Status: Never smoker alcohol intake frequency: holidays/special occasions only Substance Use Type: does not use Exam Narrative Exam Narrative: GENERAL: Well-developed patient, in mild distress. HEAD: Atraumatic. Normocephalic. EYES: Pupils equal round and reactive. Extraocular motions intact. No scleral icterus. No injection or drainage. ENT: Nose without bleeding, purulent drainage. Throat without erythema, tonsillar hypertrophy or exudate. Airway patent. NECK: Trachea midline. Non tender CARDIOVASCULAR: Regular rate and rhythm without murmurs, gallops, or rubs. RESPIRATORY: Clear to auscultation. Breath sounds equal bilaterally. No wheezes, rales, or rhonchi. GASTROINTESTINAL: Abdomen soft, non-tender, nondistended. EXTREMITIES: No edema or joint tenderness. BACK: Nontender without deformity or crepitance. No flank tenderness. NEURO: AOx3. SKIN: No rash or erythema of visible areas Initial Vital Signs Initial Vital Signs: Vital Signs Temperature 97.2 F L 04/16/24 19:18 Pulse Rate 89 04/16/24 19:18 Respiratory Rate 18 04/16/24 19:18 Blood Pressure 189/91 H 04/16/24 19:18 Pulse Oximetry 97 04/16/24 19:18 Oxygen Delivery Method Room Air 04/16/24 19:18 Course Orders Ordered: Discontinued Medications Aspirin (Aspirin 81 Mg Chew Tab) 324 mg PO NOW ONE Stop: 04/16/24 19:26 Sodium Chloride (Normal Saline 0.9%) 1,000 mls @ 500 mls/hr IV BOLUS ONE Stop: 04/16/24 23:28 Last Admin: 04/16/24 21:50 Dose: 500 mls/hr Documented By: Lorazepam (Lorazepam 2 Mg/Ml Inj) 0.5 mg IV Q2HR PRN PRN Reason: Anxiety Last Admin: 04/16/24 19:56 Dose: 0.5 mg Documented By: Vital Signs Vital signs: Vital Signs - 8 hr 04/16/24 19:18 04/16/24 19:29 04/16/24 19:30 Temperature 97.2 F L Pulse Rate 89 90 86 Respiratory Rate 18 25 H Blood Pressure 189/91 H Pulse Oximetry 97 96 Oxygen Delivery Method Room Air 04/16/24 19:32 04/16/24 19:32 04/16/24 19:59 Temperature Pulse Rate 84 82 Respiratory Rate 26 H 21 Blood Pressure 191/87 H Pulse Oximetry 96 97 Oxygen Delivery Method 04/16/24 19:59 04/16/24 20:00 04/16/24 20:30 Temperature Pulse Rate 81 77 Respiratory Rate 24 22 Blood Pressure 174/85 H Pulse Oximetry 97 96 Oxygen Delivery Method 04/16/24 21:00 04/16/24 21:27 04/16/24 21:27 Temperature Pulse Rate 78 67 Respiratory Rate 38 H 19 Blood Pressure 171/81 H Pulse Oximetry 96 95 Oxygen Delivery Method 04/16/24 21:30 Temperature Pulse Rate 68 Respiratory Rate 17 Blood Pressure Pulse Oximetry 96 Oxygen Delivery Method Room Air MDM - Chest Pain Lab Data Attestation: I reviewed the patient's lab results. 04/16/24 19:35 04/16/24 19:35 Labs: Lab Results 04/16/24 Range/Units 19:35 WBC 7.2 (4.5-11.0) X10^3/uL RBC 4.14 (4.0-5.2) X10^6/uL Hgb 13.6 (12.0-16.0) g/dL Hct 39.8 (36-46) % MCV 96.1 (80-100) fL MCH 32.9 (26-34) PG MCHC 34.3 (30-36) % RDW 14.3 (11.6-14.8) % Plt Count 241 (150-400) X10^3/uL Neut % (Auto) 53.0 (50-75) % Lymph % (Auto) 28.7 (25-40) % Giles % (Auto) 11.4 (3-14) % Eos % (Auto) 6.4 H (2-4) % Baso % (Auto) 0.5 (0-2) % Neut # (Auto) 3800 (0815-1404) /uL Lymph # (Auto) 2100 (8698-9575) /uL Giles # (Auto) 800 (0-900) /uL Eos # (Auto) 500 H (0-450) /uL Baso # (Auto) 0 (0-100) /uL PT 10.9 (9.4-12.5) SECONDS INR 1.0 (0.9-1.3) APTT 30 (25.1-36.5) SECONDS Sodium 133 L (137-145) mmol/L Potassium 4.1 (3.4-5.1) mmol/L Chloride 102 (98-107) mmol/L Carbon Dioxide 24 (22-32) mmol/L BUN 13 (7-17) mg/dL Creatinine 0.81 (0.52-1.04) mg/dL Estimated GFR > 60 (>60) mL/min BUN/Creatinine Ratio 16.0 (6-22) Glucose 124 H (80-110) mg/dL Calcium 9.3 (8.4-10.2) mg/dL Magnesium 2.0 (1.6-2.3) mg/dL Total Bilirubin 0.6 (0.2-1.3) mg/dL AST 24 (14-36) IU/L ALT 14 (<35) IU/L Alkaline Phosphatase 55 (38-126) U/L Total Creatine Kinase 73 (30-135) U/L Troponin I < 0.012 (0.01-0.034) ng/mL NT-Pro-B Natriuret Pep 151 (<450) pg/mL Total Protein 7.9 (6.3-8.2) g/dL Albumin 4.5 (3.5-5.0) g/dL Globulin 3.4 (1.7-4.1) g/dL Albumin/Globulin Ratio 1.3 (1.0-2.8) Lipase 133 (23-300) U/L Imaging Data Chest x-ray: Radiologist's Impression: [address] [address] XRay Report Signed Patient: Celine Arreola MR#: [id number] : 1940 Acct:[id number] Age/Sex: 83 / F Date of Service: 04/16/24 Loc: ED Accession Number: [id number] Procedure: XR chest 1V Ordering Provider: Timothy Carrasco MD PROCEDURE: XR CHEST 1V INDICATIONS: chest pain TECHNIQUE: One view of the chest was acquired. COMPARISON: [facility], CR, XR CHEST 2V, 04/13/2024, 11:54. [facility], CR, XR CHEST 2V, 11/23/2023, 13:11. FINDINGS: Surgical changes and devices: None. Lungs and pleura: Lung volumes are low. No dense consolidation or pleural effusion. Mediastinum: Heart size is at the upper limit of normal. Mediastinal contours are unchanged Bones and chest wall: Degenerative findings. Right humeral deformity partially seen. IMPRESSION: Limited single view radiograph with low lung volumes. No acute abnormality. Dictated by: Adal Torres M.D. on 04/16/2024 at 20:01 Approved by: Adal Torres M.D. on 04/16/2024 at 20:02 ECG Data Attestation: I personally reviewed and interpreted this ECG as follows: Interpretation: Normal sinus rhythm with rate of 80, no obvious ST segment elevation or depression changes. TN 182, QRS 92, QTC 403. MDM Narrative Medical decision making narrative: 83-year-old female with ongoing shortness of breath and chest discomfort, in context of possible grief reaction, loss of her son last week from a heart attack, tearful during exam, daughter at bedside concerned also that she might be having a grief reaction, however they would like evaluation for other causes. No known CAD. Afebrile, sirs screen negative. No respiratory distress. Lungs clear. No edema on exam, no calf tenderness. EKG, chest x-ray, labs pending. IV Ativan. P.o. aspirin EKG without ischemic changes, chest x-ray negative, troponin negative. Patient query about recent blood draw outpatient on 04/13/24 D-dimer value was 800s, no D-dimer was done tonight, we discussed CTA chest imaging to evaluate for pulmonary embolus, they would like to pursue imaging, GFR favorable. CTA chest PE protocol study ordered. CTA chest PE protocol. Impressions: ?No acute pulmonary embolism. No dense airspace disease or pleural effusion. Scattered pulmonary atelectasis is seen. Small pulmonary nodules, the largest in the right lower lobe measures 6-7 mm. Consider six-month follow up. Vertebra plana of T7 and T12, age indeterminate. ?Radiology report Symptoms improved after Ativan dose. They would like to go home. Discharged home. Follow up with PCP for further workup as an outpatient for now. Critical Care Time Critical Care Time Critical Care Time: Yes Total Critical Care Time: 31 Attestation: The high probability of a clinically significant, sudden or life threatening deterioration of the [cardiopulmonary] system(s) required my full and direct attention, intervention and personal management. The aggregate critical care time was [31] minutes. This time is in addition to time spent performing reported procedures but includes the following: [x] Data Review and interpretation [x] Patient assessment and monitoring of vital signs [x] Documentation [x] Medication orders and management Discharge Plan Departure Patient Disposition: Home Clinical Impression: Chest pain, Pulmonary nodule Activity Restrictions/Additional Instructions: 83-year-old female with recent chest pain, in context of likely recent grief reaction from recent loss of family member. EKG and blood tests did not show evidence for heart attack at this time. D-dimer done as an outpatient 04/13/2024 was elevated, consider pulmonary embolus as cause of chest pain or shortness of breath. CT angiogram therefore performed, no pulmonary embolus, no acute changes in the lungs, incidental lung nodule noted, which needs further follow up as an outpatient. Aspirin and Ativan given, improved symptoms during ED stay. Recheck with your regular provider than early next next week, further evaluation and testing as an outpatient for now. Return earlier to this/nearest emergency department for any change worsening symptoms or any concerns prior Prescriptions: No Action calcitonin (salmon) 200 unit/actuation spray,non-aerosol 1 spray intranasal (ALT) DAILY Qty: 3.7 2RF ibuprofen 200 mg tablet 200 mg PO Q6H PRN albuterol sulfate 90 mcg/actuation HFA aerosol inhaler 2 puff inhalation .PRN omeprazole 20 mg capsule,delayed release(DR/EC) 20 mg PO DAILY Patient Comments: TAKE ONE CAPSULE by mouth before the MORNING meal NEEDED pravastatin 20 mg tablet 20 mg PO BEDTIME cyclobenzaprine 10 mg tablet 10 mg PO BEDTIME Patient Comments: TAKE ONE TABLET BY MOUTH THREE TIMES DAILY oxycodone-acetaminophen 5-325 mg tablet 1 tab PO TID PRN (Reason: pain) Patient Comments: TAKE ONE TO TWO TABLETS BY MOUTH EVERY FOUR TO SIX HOURS NEEDED atorvastatin [Lipitor] 20 mg tablet 20 mg PO DAILY zolpidem 5 mg tablet 5 mg PO BEDTIME levothyroxine 88 mcg tablet 88 mcg PO DAILY losartan 50 mg tablet 50 mg PO DAILY tramadol 50 mg tablet 50 mg PO BID PRN (Reason: pain) Qty: 42 2RF Referrals: Janine Gaitan ARNP, RN [Primary Care Provider] - Stand Alone Forms: Patient Portal/API
[2024-04-16 19:46] LABS: Add Manual Diff / Slide Review NO; Basophils Absolute Auto 0 /uL (0-100); Basophils Percent Auto 0.5 % (0-2); Eosinophils Absolute Auto 500 /uL (0-450); Eosinophils Percent Auto 6.4 % (2-4); Hematocrit 39.8 % (36-46); Hemoglobin 13.6 g/dL (12.0-16.0); Lymphocytes Absolute Auto 2100 /uL (1100-4500); Lymphocytes Percent Auto 28.7 % (25-40); Mean Corpuscular HGB Conc 34.3 % (30-36); Mean Corpuscular Hemoglobin 32.9 PG (26-34); Mean Corpuscular Volume 96.1 fL (80-100); Monocytes Absolute Auto 800 /uL (0-900); Monocytes Percent Auto 11.4 % (3-14); Neutrophils Absolute Auto 3800 /uL (1500-7000); Platelet Count 241 X10^3/uL (150-400); Red Blood Cell Count 4.14 X10^6/uL (4.0-5.2); Red Cell Distribution Width 14.3 % (11.6-14.8); White Blood Cell Count 7.2 X10^3/uL (4.5-11.0)
[2024-04-16 19:51] LABS: Prothrombin Time 10.9 SECONDS (9.4-12.5)
[2024-04-16 19:54] LABS: PTT Partial Thromboplastin Tim 30 SECONDS (25.1-36.5)
[2024-04-16] MEDS: LORazepam 2 MG/ML INJ 0.5 MG IV (19:56)
[2024-04-16 19:57] LABS: Alanine Aminotransferase 14 IU/L (<35); Albumin 4.5 g/dL (3.5-5.0); Albumin Globulin Ratio 1.3 (1.0-2.8); Alkaline Phosphatase 55 U/L (38-126); Aspartate Aminotransferase 24 IU/L (14-36); Bilirubin Total 0.6 mg/dL (0.2-1.3); Blood Urea Nitrogen 13 mg/dL (7-17); Calcium 9.3 mg/dL (8.4-10.2); Carbon Dioxide 24 mmol/L (22-32); Chloride 102 mmol/L (98-107); Creatine Kinase 73 U/L (30-135); Estimated Glomerular Filt Rate > 60 mL/min (>60); Globulin 3.4 g/dL (1.7-4.1); Glucose 124 mg/dL (80-110); HEMOLYSIS 22 (0-50); Lipase 133 U/L (23-300); Potassium 4.1 mmol/L (3.4-5.1); Sodium 133 mmol/L (137-145); Total Protein 7.9 g/dL (6.3-8.2)
[2024-04-16 20:09] LABS: NT-proBNP (BNP-Adult 18+) 151 pg/mL (<450); Troponin I < 0.012 ng/mL (0.01-0.034)
--- NOTE | 2024-04-16 21:29 | DI.CT.S_ITS ---
PROCEDURE: CT ANGIO CHEST PE PROTOCOL INDICATIONS: CP/dyspnea, Dd+ 800s on 04/13, eval for PE TECHNIQUE: After the administration of intravenous contrast, 2 mm thick sections acquired from the pulmonary apices to the posterior costophrenic angles. 3-dimensional maximum intensity projection (MIP) coronal and sagittal reformats were then acquired through the thorax. For radiation dose reduction, the following was used: automated exposure control, adjustment of mA and/or kV according to patient size. COMPARISON: [facility], CR, XR CHEST 1V, 04/16/2024, 19:40. FINDINGS: Image quality: Diagnostic Lungs and pleura: Mild basal atelectasis. No dense airspace disease or pleural effusion. There are small pulmonary nodules and granulomas, the largest at the right lower lobe (5/193) measures 6-7 mm. Mediastinum, heart, and esophagus: No acute pulmonary embolism. Moderate to large hiatal hernia. There are coronary calcifications. Borderline cardiomegaly no pathologic lymph nodes by size criteria Chest wall and thyroid: Unremarkable Upper abdomen: Atherosclerotic calcifications of the aorta. No gross abnormality in the upper abdomen on these arterial phase images Bones: There are degenerative changes. Vertebral plana of T12, and T7, age indeterminate. IMPRESSION: No acute pulmonary embolism. No dense airspace disease or pleural effusion. Scattered pulmonary atelectasis is seen. Small pulmonary nodules, the largest in the right lower lobe measures 6-7 mm. Consider six-month follow-up. Vertebral plana of T7 and T12, age indeterminate. Other findings as above. Dictated by: Adal Torres M.D. on 04/16/2024 at 22:09 Approved by: Adal Torres M.D. on 04/16/2024 at 22:13
[2024-04-16] MEDS: SODIUM CHLORIDE 0.9% 1,000 ML 500 ML IV (21:50)
== END 2024-04-16 22:34 | disposition home or self-care (01) ==
PROVIDERS: Emergency Provider Emergency Medicine; PCP Nurse Practitioner Family
DX: R07.9 Chest pain, unspecified (principal); R91.1 Solitary pulmonary nodule; Z79.899 Other long term (current) drug therapy
CPT/HCPCS: 36415; 71045; 71275; 80053; 82550; 83690; 83735; 83880; 84484; 85025; 85610; 85730; 93005; 96374; 99284; J2060; Q9967

== ENCOUNTER → 2024-04-26 10:25 | Outpatient (CLI) | payer MEDICARE, OTHER, SELFPAY ==
[2020-10-03 13:05] VITALS: BMI 30.2
--- NOTE | 2024-04-26 10:27 | EKG_ITS ---
[facility] [address] [place] [address] Test Date: 2024-04-26 Pat Name: Celine Arreola Department: Room: Gender: Female Agency Owner: : 1940 Requested By: Order Number: [id number] Reading MD: Davy Marsh MD Measurements Intervals [place] Rate: 74 P: 41 [place]: 182 QRS: -46 QRSD: 84 T: 25 QT: 360 QTc: 399 Interpretive Statements Normal sinus rhythm Left anterior fascicular block NO SIGNIFICANT CHANGE FROM PRIOR TRACING Electronically Signed On 04-27-2024 7:52:10 PDT by Davy Marsh MD
== END ==
PROVIDERS: PCP Nurse Practitioner Family; Referring Provider Nurse Practitioner Family; Visit Provider Nurse Practitioner Family
DX: R07.9 Chest pain, unspecified (principal)
CPT/HCPCS: 93005

== ENCOUNTER → 2024-08-01 10:32 | Outpatient (CLI) | payer MEDICARE, OTHER, SELFPAY ==
[2020-10-03 13:05] VITALS: BMI 30.2
[2024-08-01 12:02] LABS: BUN Creatinine Ratio 17.6 (6-22); Blood Urea Nitrogen 15 mg/dL (7-17); Calcium 9.3 mg/dL (8.4-10.2); Carbon Dioxide 26 mmol/L (22-32); Chloride 102 mmol/L (98-107); Estimated Glomerular Filt Rate > 60 mL/min (>60); Glucose 125 mg/dL (80-110); HEMOLYSIS < 15 (0-50); Potassium 4.3 mmol/L (3.4-5.1); Sodium 134 mmol/L (137-145)
[2024-08-01 12:32] LABS: TSH w/ Reflex to FT4 0.96 uIU/mL (0.47-4.68)
== END ==
PROVIDERS: PCP Nurse Practitioner Family; Referring Provider Nurse Practitioner Family; Visit Provider Nurse Practitioner Family
DX: E03.9 Hypothyroidism, unspecified (principal); E87.1 Hypo-osmolality and hyponatremia
CPT/HCPCS: 36415; 80048; 84443

== ENCOUNTER → 2024-10-21 14:43 | Outpatient (CLI) | payer MEDICARE, OTHER, SELFPAY ==
[2020-10-03 13:05] VITALS: BMI 30.2
[2024-10-21 15:31] LABS: Influenza A - CEPHEID Flu A NEGATIVE (NEGATIVE); Influenza B - CEPHEID Flu B NEGATIVE (NEGATIVE); Respiratory Syncytial Virus Negative (Negative)
[2024-10-21 16:14] LABS: COVID-19 CEPHEID 4-PLEX PCR Negative (Negative)
== END ==
PROVIDERS: PCP Nurse Practitioner Family; Referring Provider Nurse Practitioner Family; Visit Provider Nurse Practitioner Family
DX: R05.1 Acute cough (principal); J02.9 Acute pharyngitis, unspecified
CPT/HCPCS: 0241U; 87070

== ENCOUNTER → 2024-10-21 14:59 | Outpatient (CLI) | payer MEDICARE, OTHER, SELFPAY ==
[2020-10-03 13:05] VITALS: BMI 30.2
--- NOTE | 2024-10-21 15:02 | DI.RAD.S_ITS ---
PROCEDURE: XR CHEST 2V INDICATIONS: Cough TECHNIQUE: 2 views of the chest were acquired. COMPARISON: [facility], CR, XR CHEST 1V, 04/16/2024, 19:40. [facility], CR, XR CHEST 2V, 04/13/2024, 11:54. FINDINGS: Surgical changes and devices: Unremarkable Lungs and pleura: Mild peribronchial thickening. No dense airspace disease. No pleural effusions. Mediastinum: Heart size is normal and unchanged. Tortuous aorta. Retrocardiac opacity is probably a hiatal hernia. Bones and chest wall: Thoracolumbar junction height loss again seen. Right humeral deformity again seen. IMPRESSION: Mild peribronchial thickening possibly viral infection. Right humeral and thoracolumbar junction vertebral body deformities again seen. Retrocardiac opacity present, favored to be a hiatal hernia. Dictated by: Adal Torres M.D. on 10/21/2024 at 14:54 Approved by: Adal Torres M.D. on 10/21/2024 at 14:56
== END ==
PROVIDERS: PCP Nurse Practitioner Family; Referring Provider Nurse Practitioner Family
DX: J02.9 Acute pharyngitis, unspecified (principal); R05.1 Acute cough; M21.921 Unspecified acquired deformity of right upper arm; M43.8X5 Other specified deforming dorsopathies, thoracolumbar region
CPT/HCPCS: 0241U; 71046; 87070

== ENCOUNTER → 2024-12-22 10:38 | Outpatient (CLI) | payer MEDICARE, OTHER, SELFPAY ==
[2020-10-03 13:05] VITALS: BMI 30.2
--- NOTE | 2024-12-22 10:40 | DI.CT.S_ITS ---
PROCEDURE: CT CHEST WO CON INDICATIONS: LUNG NODULE TECHNIQUE: Noncontrast 5 mm thick sections acquired from the pulmonary apices to the posterior costophrenic angles. 1 mm lung window, 5 mm thick coronal and sagittal and 7 mm axial MIP reformats were then acquired. For radiation dose reduction, the following was used: automated exposure control, adjustment of mA and/or kV according to patient size. COMPARISON: [facility], CT, CT CHEST WO CON, 01/13/2020, 11:29. FINDINGS: Image quality: Diagnostic. Lower Neck: No enlarged lymph nodes. Thyroid: No thyroid nodules which require sonographic follow up, per consensus guidelines. Axillae: No enlarged lymph nodes. Chest Wall: Unremarkable. Bones: Osteoporosis. Stable compression deformities of the T12 and T7 vertebral body. There is 7 mm endplate retropulsion of T12, stable from prior. This results in moderate spinal canal narrowing. Lungs and Pleura: No pneumothorax or pleural effusions. Stable 7 x 5 mm right lower lobe nodule (series 3, image 188). Additional pulmonary micro nodules are unchanged. Heart: Heart size is normal. No pericardial effusion. Thoracic Vessels: The aorta and pulmonary arteries demonstrate normal size. Mediastinum and Leia: No enlarged lymph nodes. Esophagus: No wall thickening. No hiatal hernia. Upper Abdomen: Visualized upper abdomen solid organs and bowel loops appear normal. IMPRESSION: Stable 7 x 5 mm right lower lobe nodule. Recommend follow-up in 18-24 months as of 04/16/2024. Osteoporosis with stable compression deformities and moderate spinal canal narrowing. Large hiatal hernia. Dictated by: Silvano Up M.D. on 12/22/2024 at 13:30 Approved by: Silvano Up M.D. on 12/22/2024 at 14:00
== END ==
PROVIDERS: PCP Physician Assistant; Referring Provider Physician Assistant; Visit Provider Physician Assistant
DX: R91.1 Solitary pulmonary nodule (principal)
CPT/HCPCS: 71250

== ENCOUNTER → 2025-01-04 15:04 | Outpatient (CLI) | payer MEDICARE, OTHER, SELFPAY ==
[2020-10-03 13:05] VITALS: BMI 30.2
--- NOTE | 2025-01-04 15:05 | DI.RAD.S_ITS ---
PROCEDURE: XR DEXA AXIAL SKELETON INDICATIONS: OSTEOPOROSIS SCREENING COMPARISON: [facility], CR, XR DEXA AXIAL SKELETON, 02/10/2023, 11:48. FINDINGS: Lumbar Spine: Bone mineral density 0.995 (previously 0.977) g/cm2, T score -0.5 (previously-0.7). Left Femoral Neck: Bone mineral density 0.601 (previously 0.612) g/cm2, T score -2.2 (previously-2.1). Left Hip: Bone mineral density 0.715 (previously 0.754) g/cm2, T score -1.9 (previously-1.5). Fracture Risk Calculation (when applicable): 10-year fracture risk of a major osteoporotic fracture 39 percent and of a hip fracture 25 percent. (T score greater or equal to -1.0 to: NORMAL) (T score from -1.1 to -2.4: OSTEOPENIA) (T score less than or equal to -2.5: OSTEOPOROSIS) IMPRESSION: Osteopenia---recommend repeat DEXA in 2-3 years for reassessment. Follow-up guidelines as follows: Osteoporosis: Consider a repeat DEXA and Vertebral Fracture Assessment (VFA) exam in 2 years or sooner if medically necessary, to reassess this patient's status. Osteopenia: Consider a repeat DEXA in 2-3 years to reassess this patient's status, or if there is a new clinical indication. Normal: Consider a repeat DEXA in 5 years or sooner, or if there is a new clinical indication. All treatment decisions require clinical judgment and consideration of individual patient factors, including patient preferences, comorbidities, previous drug use, risk factors not captured in the FRAX model (e.g., frailty, falls, vitamin D deficiency, increased bone turnover, interval significant decline in bone density ) and possible under- or over-estimation of fracture risk by FRAX. In addition, the NOF Guide recommends that FDA-approved medical therapies be considered in postmenopausal women and men age >= 50 years with a: * Hip or vertebral (clinical or morphometric) fracture * T-score of <=-2.5 at the spine or hip * Ten-year fracture probability by FRAX of >= 3% for hip fracture or >=20% for major osteoporotic fracture. Dictated by: Abraham Booth M.D. on 01/06/2025 at 5:22 Approved by: Abraham Booth M.D. on 01/06/2025 at 6:19
== END ==
PROVIDERS: PCP Physician Assistant; Referring Provider Physician Assistant; Visit Provider Physician Assistant
DX: M81.0 Age-related osteoporosis without current pathological fracture (principal); Z13.820 Encounter for screening for osteoporosis; Z78.0 Asymptomatic menopausal state
CPT/HCPCS: 77080

== ENCOUNTER → 2025-09-05 07:50 | Outpatient (CLI) | payer MEDICARE, OTHER, SELFPAY ==
[2020-10-03 13:05] VITALS: BMI 30.2
--- NOTE | 2025-09-05 07:52 | DI.US.S_ITS ---
PROCEDURE: US ABDOMEN LIMITED INDICATIONS: RUQ PAIN TECHNIQUE: Real-time focused scanning was performed of the abdomen, with image documentation. COMPARISON: [facility], [place], US ABDOMEN COMPLETE, 01/13/2020, 16:20. FINDINGS: The liver is normal in size and demonstrates no suspicious lesions. The gallbladder is not ideally seen. However, no significant abnormality is seen. No findings of gallstones or sludge are seen. The gallbladder wall is not thickened, measuring 3 mm or less. No specific pericholecystic fluid is seen. The sonographic Sierra sign is negative. There is no biliary dilatation, the common bile duct measures 4 mm. The pancreas is not seen, secondary to overlying bowel gas. IMPRESSION: Limited study, without a significant abnormality identified. Dictated by: Haris Valentin M.D. on 09/05/2025 at 13:37 Approved by: Haris Valentin M.D. on 09/05/2025 at 13:38
== END ==
LOC: US 07:51
PROVIDERS: PCP Physician Assistant; Referring Provider Physician Assistant; Visit Provider Physician Assistant
DX: R10.11 Right upper quadrant pain (principal); R10.13 Epigastric pain
CPT/HCPCS: 76705